=== PATIENT | female | born 1985 | race Two or more races ===

== ENCOUNTER 2023-12-18 20:36 | Inpatient (IN) | payer MEDICAID ==
[~2023-12-18] VITALS: Ht 175.3 cm; Wt 30.5 kg
[~2023-12-18 20:36] MED LIST: ESCI-8 PO; HYDR-3686 PO; HYDR28CR14 TP; Lorazepam PO; NO HOME MEDS; OXCA150T14 PO; PROP10TA10 PO; RISP-31 PO; TEMA15CA5 PO; TRAZ-251 PO; VENL75CA61 PO
[2023-12-18 21:15] LABS: WHITE BLOOD COUNT 23.6 X10'3 (4.5-11.0)
[2023-12-18 21:16] LABS: BASOPHILS % (AUTO) 0.2 % (0-1); EOSINOPHILS % (AUTO) 0.1 % (0-6); LYMPHOCYTES # (AUTO) 1.9 X10'3 (1.1-4.8); LYMPHOCYTES % (AUTO) 8.1 % (21-51); MONOCYTES # (AUTO) 1.3 X10'3 (0-0.9); MONOCYTES % (AUTO) 5.3 % (2-12); NEUTROPHILS # (AUTO) 20.4 X10'3 (1.8-7.7); NEUTROPHILS % (AUTO) 86.3 % (42-75); PLATELET COUNT 143 X10'3 (140-440)
[2023-12-18 21:23] LABS: BILIRUBIN,URINE MODERATE (Neg); CLARITY,URINE CLOUDY (Clear); COLOR,URINE AMBER (Yellow); GLUCOSE, URINE 100 mg/dl (Neg); KETONES,URINE NEGATIVE (Neg); LEUKOCYTE ESTERASE ,URINE NEGATIVE (Neg); OCCULT BLOOD,URINE NEGATIVE (Neg); PH,URINE 5.5 (4.8-8.0); PROTEIN,URINE 30 mg/dl (Neg)
[2023-12-18] MEDS: normal saline 1000ML IV soln IVB ONE ×2 (21:24→23:31)
[2023-12-18] MEDS: acetaminophen 650mg rectal suppository RC ONE (21:24)
[2023-12-18 21:29] LABS: UA COLLECTION TYPE STRAIGHT CATH
[2023-12-18 21:30] LABS: NITRITES, URINE NEGATIVE (Neg)
[2023-12-18 21:32] LABS: BACTERIA,URINE 3+ /HPF (Neg); MUCUS STRANDS MANY /LPF (Neg); RBC,URINE NONE SEEN /HPF (0-2); SQUAMOUS EPITHELIAL CELL,UR FEW /LPF (FEW); WBC,URINE 0-4 /HPF (0-4)
[2023-12-18 21:37] LABS: HEMATOCRIT 55.9 % (35.0-45.0); HEMOGLOBIN 17.8 g/dl (12.0-16.0); MEAN CORPUSCULAR HGB CONC 31.8 g/dL (33.0-36.5); MEAN CORPUSCULAR VOLUME 81.8 FL (78-98); RED BLOOD COUNT 6.83 X10'6 (4.20-5.60); RED CELL DISTRIBUTION WIDTH 13.8 % (11.5-14.5)
[2023-12-18 21:56] LABS: ALBUMIN 3.8 G/DL (3.4-5.0); ANION GAP 13 (8-16); BLOOD UREA NITROGEN 27 MG/DL (7-18); BUN/CREATININE RATIO 33.3 (10.0-20.0); CHLORIDE 119 MMOL/L (99-107); CREATININE 0.81 MG/DL (0.40-0.90); GLUCOSE 130 MG/DL (70-104); POTASSIUM 3.1 MMOL/L (3.5-5.1); TOTAL CARBON DIOXIDE 28.5 MMOL/L (24-32); eCRCL 60 ML/MIN; eGFR 78 ML/MIN
[2023-12-18 22:01] LABS: SODIUM 160 MMOL/L (135-145)
[2023-12-18] MEDS: piperacillin/tazo 3.375gm/50ml 50 ML IV ONE (22:16)
[2023-12-18] MEDS ORDERED: magnesium 2GM in 50ml NS 50 ML IV PRN (22:35)
[2023-12-18] MEDS ORDERED: magnesium 4gm in 100ml NS 100 ML IV PRN (22:35)
[2023-12-18] MEDS ORDERED: potassium Cl 20 mEq SR tablet PO PRN ×2 (22:35)
[2023-12-18] MEDS ORDERED: acetaminophen 325mg tablet PO PRN (22:35)
[2023-12-18] MEDS ORDERED: ondansetron/PF 4mg/2ml inj IV PRN (22:35)
[2023-12-18] MEDS ORDERED: magnesium Cl slow-release 64mg tablet PO PRN (22:35)
[2023-12-19] VITALS (7 sets, daily range): BP systolic 104–128; BP diastolic 65–83; PULSE 62–89; RESP 13–17; TEMP 97–98.4; O2SAT 93–100
[2023-12-19] MEDS: dextrose 5%-water 1,000 ML IV SCH (01:53)
[2023-12-19] MEDS: K and/or MAG REPLACEMENT MC SCH (08:00)
[2023-12-19 09:27] LABS: BASOPHILS # (AUTO) 0.1 X10'3 (0-0.2); BASOPHILS % (AUTO) 0.3 % (0-1); EOSINOPHILS % (AUTO) 0.1 % (0-6); LYMPHOCYTES % (AUTO) 9.8 % (21-51); MEAN PLATELET VOLUME 11.1 FL (7.4-10.4); MONOCYTES # (AUTO) 1.2 X10'3 (0-0.9); MONOCYTES % (AUTO) 6.2 % (2-12); NEUTROPHILS # (AUTO) 16.7 X10'3 (1.8-7.7); NEUTROPHILS % (AUTO) 83.6 % (42-75); PLATELET COUNT 119 X10'3 (140-440); RED CELL DISTRIBUTION WIDTH 14.4 % (11.5-14.5)
[2023-12-19 09:38] LABS: ANION GAP 6 (8-16); BILIRUBIN,TOTAL 0.9 MG/DL (0.1-1.0); BLOOD UREA NITROGEN 19 MG/DL (7-18); BUN/CREATININE RATIO 32.8 (10.0-20.0); CALCIUM 8.5 MG/DL (8.5-10.1); CHLORIDE 122 MMOL/L (99-107); CREATININE 0.58 MG/DL (0.40-0.90); GLUCOSE 134 MG/DL (70-104); TOTAL CARBON DIOXIDE 28.8 MMOL/L (24-32); TOTAL PROTEIN 6.6 G/DL (6.4-8.2); eCRCL 83 ML/MIN; eGFR > 90 ML/MIN
[2023-12-19 09:39] LABS: ALANINE AMINOTRANSFERASE 9 U/L (12-78); ALBUMIN 2.8 G/DL (3.4-5.0); ALBUMIN/GLOBULIN RATIO 0.7 (1.1-1.5); ALKALINE PHOSPHATASE 80 IU/L (46-116); ASPARTATE AMINO TRANSFERASE 1 U/L (10-37)
[2023-12-19 09:44] LABS: POTASSIUM 2.8 MMOL/L (3.5-5.1); SODIUM 157 MMOL/L (135-145)
[2023-12-19 09:47] LABS: HEMATOCRIT 42.5 % (35.0-45.0); HEMOGLOBIN 13.4 g/dl (12.0-16.0); MEAN CORPUSCULAR HEMOGLOBIN 26.5 PG (27.0-31.0); MEAN CORPUSCULAR HGB CONC 31.5 g/dL (33.0-36.5); MEAN CORPUSCULAR VOLUME 84.1 FL (78-98); RED BLOOD COUNT 5.05 X10'6 (4.20-5.60)
[2023-12-19 10:20] LABS: LARGE PLATELETS MODERATE; PLATELET ESTIMATE DECREASED
[2023-12-19] MEDS: potassium Cl 40MEQ/1/2NS 520ml 520 ML IV PRN (12:21)
[2023-12-19] MEDS: piperacillin/tazo 3.375gm/50ml 50 ML IV SCH (17:53)
[2023-12-20 02:00] VITALS: BP 122/80; PULSE 74; RESP 13; TEMP 97.6; O2SAT 100
[2023-12-20 06:44] LABS: BASOPHILS % (AUTO) 0.2 % (0-1); EOSINOPHILS # (AUTO) 0.2 X10'3 (0-0.9); EOSINOPHILS % (AUTO) 1.1 % (0-6); HEMATOCRIT 38.6 % (35.0-45.0); HEMOGLOBIN 12.1 g/dl (12.0-16.0); LYMPHOCYTES % (AUTO) 14.4 % (21-51); MEAN CORPUSCULAR HEMOGLOBIN 25.9 PG (27.0-31.0); MEAN CORPUSCULAR HGB CONC 31.4 g/dL (33.0-36.5); MEAN CORPUSCULAR VOLUME 82.6 FL (78-98); MEAN PLATELET VOLUME 10.8 FL (7.4-10.4); MONOCYTES # (AUTO) 1.1 X10'3 (0-0.9); MONOCYTES % (AUTO) 7.9 % (2-12); NEUTROPHILS # (AUTO) 10.4 X10'3 (1.8-7.7); NEUTROPHILS % (AUTO) 76.4 % (42-75); PLATELET COUNT 114 X10'3 (140-440); RED BLOOD COUNT 4.67 X10'6 (4.20-5.60); RED CELL DISTRIBUTION WIDTH 14.4 % (11.5-14.5); WHITE BLOOD COUNT 13.7 X10'3 (4.5-11.0)
[2023-12-20 07:00] VITALS: BP 113/69; PULSE 64; RESP 19; TEMP 97.5; O2SAT 96
[2023-12-20 07:28] LABS: ALBUMIN 2.6 G/DL (3.4-5.0); ANION GAP 9 (8-16); BLOOD UREA NITROGEN 10 MG/DL (7-18); BUN/CREATININE RATIO 20.4 (10.0-20.0); CALCIUM 8.3 MG/DL (8.5-10.1); CHLORIDE 114 MMOL/L (99-107); CREATININE 0.49 MG/DL (0.40-0.90); GLUCOSE 122 MG/DL (70-104); SODIUM 148 MMOL/L (135-145); TOTAL CARBON DIOXIDE 24.7 MMOL/L (24-32); eCRCL 99 ML/MIN; eGFR > 90 ML/MIN
[2023-12-20 07:42] LABS: POTASSIUM 2.9 MMOL/L (3.5-5.1)
[2023-12-20 08:00] VITALS: RESP 17; O2SAT 98
[2023-12-20 13:26] LABS: PREALBUMIN 15.4 MG/DL (19-36)
[2023-12-20 18:00] VITALS: BP 103/65; PULSE 68; RESP 15; TEMP 97.3; O2SAT 100
[2023-12-20 22:00] VITALS: BP 116/84; PULSE 61; RESP 16; TEMP 97.5; O2SAT 100
[2023-12-21] VITALS (7 sets, daily range): BP systolic 110–135; BP diastolic 65–98; PULSE 61–83; RESP 16–22; TEMP 97.6–100.2; O2SAT 95–100
[2023-12-21 08:05] LABS: BASOPHILS % (AUTO) 0.2 % (0-1); EOSINOPHILS # (AUTO) 0.2 X10'3 (0-0.9); EOSINOPHILS % (AUTO) 1.6 % (0-6); HEMOGLOBIN 12.4 g/dl (12.0-16.0); LYMPHOCYTES # (AUTO) 1.7 X10'3 (1.1-4.8); LYMPHOCYTES % (AUTO) 17.6 % (21-51); MEAN CORPUSCULAR HEMOGLOBIN 25.9 PG (27.0-31.0); MEAN CORPUSCULAR HGB CONC 31.8 g/dL (33.0-36.5); MEAN CORPUSCULAR VOLUME 81.4 FL (78-98); MONOCYTES # (AUTO) 0.7 X10'3 (0-0.9); NEUTROPHILS % (AUTO) 73.6 % (42-75); PLATELET COUNT 138 X10'3 (140-440); RED CELL DISTRIBUTION WIDTH 14.1 % (11.5-14.5); WHITE BLOOD COUNT 9.6 X10'3 (4.5-11.0)
[2023-12-21 08:26] LABS: ALBUMIN 2.6 G/DL (3.4-5.0); ANION GAP 6 (8-16); BLOOD UREA NITROGEN 1 MG/DL (7-18); BUN/CREATININE RATIO 2.6 (10.0-20.0); CALCIUM 8.5 MG/DL (8.5-10.1); CHLORIDE 112 MMOL/L (99-107); CREATININE 0.38 MG/DL (0.40-0.90); GLUCOSE 136 MG/DL (70-104); POTASSIUM 3.8 MMOL/L (3.5-5.1); SODIUM 146 MMOL/L (135-145); TOTAL CARBON DIOXIDE 27.6 MMOL/L (24-32); eCRCL 127 ML/MIN; eGFR > 90 ML/MIN
[2023-12-22] VITALS (7 sets, daily range): BP systolic 101–133; BP diastolic 61–81; PULSE 80–102; RESP 13–19; TEMP 96.6–99.3; O2SAT 96–100
[2023-12-22 07:42] LABS: BASOPHILS # (AUTO) 0.1 X10'3 (0-0.2); BASOPHILS % (AUTO) 0.5 % (0-1); EOSINOPHILS # (AUTO) 0.1 X10'3 (0-0.9); EOSINOPHILS % (AUTO) 0.6 % (0-6); HEMATOCRIT 43.2 % (35.0-45.0); HEMOGLOBIN 13.9 g/dl (12.0-16.0); LYMPHOCYTES % (AUTO) 17.7 % (21-51); MEAN CORPUSCULAR HEMOGLOBIN 25.8 PG (27.0-31.0); MEAN CORPUSCULAR HGB CONC 32.1 g/dL (33.0-36.5); MEAN CORPUSCULAR VOLUME 80.3 FL (78-98); MEAN PLATELET VOLUME 10.5 FL (7.4-10.4); MONOCYTES # (AUTO) 0.8 X10'3 (0-0.9); MONOCYTES % (AUTO) 7.5 % (2-12); NEUTROPHILS # (AUTO) 8.3 X10'3 (1.8-7.7); NEUTROPHILS % (AUTO) 73.7 % (42-75); PLATELET COUNT 158 X10'3 (140-440); RED BLOOD COUNT 5.37 X10'6 (4.20-5.60); WHITE BLOOD COUNT 11.2 X10'3 (4.5-11.0)
[2023-12-22 08:02] LABS: ALBUMIN 2.9 G/DL (3.4-5.0); ANION GAP 7 (8-16); BLOOD UREA NITROGEN 1 MG/DL (7-18); BUN/CREATININE RATIO 2.1 (10.0-20.0); CALCIUM 8.6 MG/DL (8.5-10.1); CHLORIDE 105 MMOL/L (99-107); CREATININE 0.47 MG/DL (0.40-0.90); GLUCOSE 136 MG/DL (70-104); MAGNESIUM 1.9 MG/DL (1.5-2.4); SODIUM 141 MMOL/L (135-145); eCRCL 103 ML/MIN; eGFR > 90 ML/MIN
[2023-12-22 08:14] LABS: POTASSIUM 2.9 MMOL/L (3.5-5.1)
[2023-12-22] MEDS ORDERED: LORazepam 2 mg/ml vial IV ONE (12:45)
[2023-12-22] MEDS: diazepam inj 5 MG/ML inj. IV ONE (15:57)
[2023-12-22] MEDS ORDERED: potassium Cl 20 mEq SR tablet PO PRN ×2 (16:25)
[2023-12-22] MEDS ORDERED: magnesium 4gm in 100ml NS 100 ML IV PRN (16:25)
[2023-12-22] MEDS ORDERED: magnesium Cl slow-release 64mg tablet PO PRN (16:25)
[2023-12-22] MEDS ORDERED: magnesium 2GM in 50ml NS 50 ML IV PRN (16:25)
[2023-12-22] MEDS: potassium Cl 40MEQ/1/2NS 520ml 520 ML IV PRN (19:04)
[2023-12-22] MEDS: K and/or MAG REPLACEMENT MC SCH (19:14)
[2023-12-23] VITALS (8 sets, daily range): BP systolic 103–128; BP diastolic 56–81; PULSE 71–93; RESP 12–20; TEMP 97.5–98.7; O2SAT 96–98
[2023-12-23 07:40] LABS: BASOPHILS % (AUTO) 0.2 % (0-1); EOSINOPHILS # (AUTO) 0.2 X10'3 (0-0.9); EOSINOPHILS % (AUTO) 1.7 % (0-6); HEMATOCRIT 44.6 % (35.0-45.0); HEMOGLOBIN 14.4 g/dl (12.0-16.0); LYMPHOCYTES # (AUTO) 1.9 X10'3 (1.1-4.8); LYMPHOCYTES % (AUTO) 20.6 % (21-51); MEAN CORPUSCULAR HEMOGLOBIN 26.2 PG (27.0-31.0); MEAN CORPUSCULAR HGB CONC 32.2 g/dL (33.0-36.5); MEAN CORPUSCULAR VOLUME 81.3 FL (78-98); MEAN PLATELET VOLUME 9.9 FL (7.4-10.4); MONOCYTES # (AUTO) 0.8 X10'3 (0-0.9); MONOCYTES % (AUTO) 8.7 % (2-12); NEUTROPHILS # (AUTO) 6.5 X10'3 (1.8-7.7); NEUTROPHILS % (AUTO) 68.8 % (42-75); PLATELET COUNT 149 X10'3 (140-440); RED BLOOD COUNT 5.49 X10'6 (4.20-5.60); RED CELL DISTRIBUTION WIDTH 13.9 % (11.5-14.5); WHITE BLOOD COUNT 9.4 X10'3 (4.5-11.0)
[2023-12-23 07:48] LABS: ALBUMIN 2.7 G/DL (3.4-5.0); ANION GAP 10 (8-16); BLOOD UREA NITROGEN 1 MG/DL (7-18); BUN/CREATININE RATIO 2.6 (10.0-20.0); CALCIUM 9.1 MG/DL (8.5-10.1); CHLORIDE 106 MMOL/L (99-107); CREATININE 0.39 MG/DL (0.40-0.90); GLUCOSE 112 MG/DL (70-104); POTASSIUM 3.9 MMOL/L (3.5-5.1); PREALBUMIN 18.6 MG/DL (19-36); SODIUM 140 MMOL/L (135-145); TOTAL CARBON DIOXIDE 24.2 MMOL/L (24-32); eCRCL 127 ML/MIN; eGFR > 90 ML/MIN
[2023-12-24] VITALS (7 sets, daily range): BP systolic 102–120; BP diastolic 59–79; PULSE 83–111; RESP 15–25; TEMP 97–98.9; O2SAT 97–99
[2023-12-24 15:27] LABS: BASOPHILS % (AUTO) 0.2 % (0-1); EOSINOPHILS # (AUTO) 0.2 X10'3 (0-0.9); EOSINOPHILS % (AUTO) 1.6 % (0-6); HEMATOCRIT 43.6 % (35.0-45.0); LYMPHOCYTES # (AUTO) 2.7 X10'3 (1.1-4.8); LYMPHOCYTES % (AUTO) 22.1 % (21-51); MEAN CORPUSCULAR HEMOGLOBIN 25.8 PG (27.0-31.0); MEAN CORPUSCULAR VOLUME 80.7 FL (78-98); MEAN PLATELET VOLUME 9.5 FL (7.4-10.4); MONOCYTES # (AUTO) 1.2 X10'3 (0-0.9); MONOCYTES % (AUTO) 9.7 % (2-12); NEUTROPHILS # (AUTO) 8.3 X10'3 (1.8-7.7); NEUTROPHILS % (AUTO) 66.4 % (42-75); PLATELET COUNT 232 X10'3 (140-440); WHITE BLOOD COUNT 12.4 X10'3 (4.5-11.0)
[2023-12-24 15:42] LABS: ALANINE AMINOTRANSFERASE 8 U/L (12-78); ALBUMIN 2.9 G/DL (3.4-5.0); ALBUMIN/GLOBULIN RATIO 0.6 (1.1-1.5); ALKALINE PHOSPHATASE 105 IU/L (46-116); ANION GAP 11 (8-16); ASPARTATE AMINO TRANSFERASE 19 U/L (10-37); BILIRUBIN,TOTAL 0.3 MG/DL (0.1-1.0); BLOOD UREA NITROGEN 4 MG/DL (7-18); BUN/CREATININE RATIO 6.8 (10.0-20.0); CALCIUM 9.1 MG/DL (8.5-10.1); CHLORIDE 101 MMOL/L (99-107); CREATININE 0.59 MG/DL (0.40-0.90); GLUCOSE 107 MG/DL (70-104); POTASSIUM 3.9 MMOL/L (3.5-5.1); SODIUM 139 MMOL/L (135-145); TOTAL CARBON DIOXIDE 26.6 MMOL/L (24-32); TOTAL PROTEIN 7.6 G/DL (6.4-8.2); eCRCL 86 ML/MIN; eGFR > 90 ML/MIN
[2023-12-25] VITALS (7 sets, daily range): BP systolic 103–115; BP diastolic 50–68; PULSE 71–111; RESP 13–18; TEMP 97.3–98.8; O2SAT 97–98
[2023-12-25 09:46] LABS: BASOPHILS % (AUTO) 0.2 % (0-1); EOSINOPHILS # (AUTO) 0.2 X10'3 (0-0.9); EOSINOPHILS % (AUTO) 1.7 % (0-6); HEMATOCRIT 42.5 % (35.0-45.0); HEMOGLOBIN 13.7 g/dl (12.0-16.0); LYMPHOCYTES # (AUTO) 2.2 X10'3 (1.1-4.8); MEAN CORPUSCULAR HEMOGLOBIN 25.9 PG (27.0-31.0); MEAN CORPUSCULAR HGB CONC 32.1 g/dL (33.0-36.5); MEAN CORPUSCULAR VOLUME 80.7 FL (78-98); MEAN PLATELET VOLUME 9.2 FL (7.4-10.4); MONOCYTES # (AUTO) 1.2 X10'3 (0-0.9); MONOCYTES % (AUTO) 10.1 % (2-12); NEUTROPHILS # (AUTO) 8.1 X10'3 (1.8-7.7); PLATELET COUNT 242 X10'3 (140-440); RED BLOOD COUNT 5.27 X10'6 (4.20-5.60); RED CELL DISTRIBUTION WIDTH 13.9 % (11.5-14.5); WHITE BLOOD COUNT 11.7 X10'3 (4.5-11.0)
[2023-12-25 10:08] LABS: ALANINE AMINOTRANSFERASE 11 U/L (12-78); ALBUMIN 2.9 G/DL (3.4-5.0); ALBUMIN/GLOBULIN RATIO 0.6 (1.1-1.5); ALKALINE PHOSPHATASE 104 IU/L (46-116); ANION GAP 6 (8-16); ASPARTATE AMINO TRANSFERASE 17 U/L (10-37); BILIRUBIN,TOTAL 0.3 MG/DL (0.1-1.0); BLOOD UREA NITROGEN 5 MG/DL (7-18); BUN/CREATININE RATIO 9.3 (10.0-20.0); CALCIUM 9.3 MG/DL (8.5-10.1); CHLORIDE 102 MMOL/L (99-107); CREATININE 0.54 MG/DL (0.40-0.90); GLUCOSE 115 MG/DL (70-104); POTASSIUM 4.3 MMOL/L (3.5-5.1); SODIUM 140 MMOL/L (135-145); TOTAL PROTEIN 7.6 G/DL (6.4-8.2); eCRCL 98 ML/MIN; eGFR > 90 ML/MIN
[2023-12-26] VITALS (11 sets, daily range): BP systolic 92–117; BP diastolic 57–70; PULSE 61–100; RESP 14–18; TEMP 98.4–99.6; O2SAT 94–99
[2023-12-26 09:51] LABS: ALANINE AMINOTRANSFERASE 10 U/L (12-78); ALBUMIN 2.8 G/DL (3.4-5.0); ALBUMIN/GLOBULIN RATIO 0.6 (1.1-1.5); ALKALINE PHOSPHATASE 95 IU/L (46-116); ANION GAP 5 (8-16); ASPARTATE AMINO TRANSFERASE 19 U/L (10-37); BILIRUBIN,TOTAL 0.3 MG/DL (0.1-1.0); BLOOD UREA NITROGEN 5 MG/DL (7-18); BUN/CREATININE RATIO 10.9 (10.0-20.0); CALCIUM 9.2 MG/DL (8.5-10.1); CHLORIDE 101 MMOL/L (99-107); CREATININE 0.46 MG/DL (0.40-0.90); GLUCOSE 119 MG/DL (70-104); POTASSIUM 4.4 MMOL/L (3.5-5.1); SODIUM 140 MMOL/L (135-145); TOTAL CARBON DIOXIDE 33.8 MMOL/L (24-32); TOTAL PROTEIN 7.5 G/DL (6.4-8.2); eCRCL 112 ML/MIN; eGFR > 90 ML/MIN
[2023-12-26 09:57] LABS: BASOPHILS % (AUTO) 0.2 % (0-1); EOSINOPHILS # (AUTO) 0.1 X10'3 (0-0.9); EOSINOPHILS % (AUTO) 1.1 % (0-6); HEMATOCRIT 41.9 % (35.0-45.0); HEMOGLOBIN 13.4 g/dl (12.0-16.0); LYMPHOCYTES % (AUTO) 18.3 % (21-51); MEAN CORPUSCULAR HEMOGLOBIN 26.1 PG (27.0-31.0); MEAN CORPUSCULAR HGB CONC 31.9 g/dL (33.0-36.5); MEAN CORPUSCULAR VOLUME 81.6 FL (78-98); MEAN PLATELET VOLUME 9.6 FL (7.4-10.4); MONOCYTES # (AUTO) 1.1 X10'3 (0-0.9); MONOCYTES % (AUTO) 9.8 % (2-12); NEUTROPHILS # (AUTO) 7.7 X10'3 (1.8-7.7); NEUTROPHILS % (AUTO) 70.6 % (42-75); PLATELET COUNT 264 X10'3 (140-440); RED BLOOD COUNT 5.14 X10'6 (4.20-5.60); RED CELL DISTRIBUTION WIDTH 13.8 % (11.5-14.5); WHITE BLOOD COUNT 10.9 X10'3 (4.5-11.0)
[2023-12-27] VITALS (9 sets, daily range): BP systolic 91–108; BP diastolic 58–72; PULSE 78–93; RESP 15–16; TEMP 97–99.3; O2SAT 97–99
[2023-12-27 07:03] LABS: PREALBUMIN 25.4 MG/DL (19-36)
[2023-12-27 09:04] LABS: BASOPHILS % (AUTO) 0.3 % (0-1); EOSINOPHILS # (AUTO) 0.2 X10'3 (0-0.9); EOSINOPHILS % (AUTO) 1.3 % (0-6); HEMATOCRIT 39.4 % (35.0-45.0); HEMOGLOBIN 12.6 g/dl (12.0-16.0); LYMPHOCYTES # (AUTO) 1.9 X10'3 (1.1-4.8); LYMPHOCYTES % (AUTO) 15.2 % (21-51); MEAN CORPUSCULAR HEMOGLOBIN 25.7 PG (27.0-31.0); MEAN CORPUSCULAR VOLUME 80.3 FL (78-98); MEAN PLATELET VOLUME 9.4 FL (7.4-10.4); MONOCYTES # (AUTO) 1.1 X10'3 (0-0.9); MONOCYTES % (AUTO) 8.3 % (2-12); NEUTROPHILS # (AUTO) 9.6 X10'3 (1.8-7.7); NEUTROPHILS % (AUTO) 74.9 % (42-75); PLATELET COUNT 254 X10'3 (140-440); RED CELL DISTRIBUTION WIDTH 13.7 % (11.5-14.5); WHITE BLOOD COUNT 12.8 X10'3 (4.5-11.0)
[2023-12-27 09:22] LABS: ALANINE AMINOTRANSFERASE 9 U/L (12-78); ALBUMIN 2.7 G/DL (3.4-5.0); ALBUMIN/GLOBULIN RATIO 0.6 (1.1-1.5); ALKALINE PHOSPHATASE 89 IU/L (46-116); ANION GAP 10 (8-16); ASPARTATE AMINO TRANSFERASE 24 U/L (10-37); BILIRUBIN,TOTAL 0.2 MG/DL (0.1-1.0); BLOOD UREA NITROGEN 7 MG/DL (7-18); BUN/CREATININE RATIO 15.6 (10.0-20.0); CALCIUM 8.7 MG/DL (8.5-10.1); CHLORIDE 101 MMOL/L (99-107); CREATININE 0.45 MG/DL (0.40-0.90); GLUCOSE 124 MG/DL (70-104); POTASSIUM 3.7 MMOL/L (3.5-5.1); SODIUM 140 MMOL/L (135-145); TOTAL CARBON DIOXIDE 29.4 MMOL/L (24-32); eCRCL 117 ML/MIN; eGFR > 90 ML/MIN
[2023-12-27] MEDS ORDERED: UNABLE TO OBTAIN (22:41)
[2023-12-28] VITALS (14 sets, daily range): BP systolic 94–135; BP diastolic 51–88; PULSE 65–93; RESP 12–20; TEMP 97.3–99.2; O2SAT 94–98
[2023-12-28] MEDS ORDERED: diphenhydrAMINE 50 mg/ml inj ONE (15:34)
[2023-12-28] MEDS ORDERED: fentaNYL/PF 50MCG/1 ML 2ML syringe ONE (15:34)
[2023-12-28] MEDS ORDERED: MIDAZolam 1 MG/ML 5ML VIAL ONE (15:34)
[2023-12-28] MEDS ORDERED: LIDOcaine 2% Viscous 15ml cup ONE (15:34)
[2023-12-28] MEDS: CefTRIAXone 2gm/D5W 50ml BAG 50 ML IV ONE (17:23)
[2023-12-29] VITALS (19 sets, daily range): BP systolic 90–146; BP diastolic 50–90; PULSE 60–107; RESP 11–19; TEMP 97.8–98.8; O2SAT 95–100
[2023-12-29 10:53] LABS: BASOPHILS # (AUTO) 0.1 X10'3 (0-0.2); BASOPHILS % (AUTO) 0.4 % (0-1); EOSINOPHILS # (AUTO) 0.2 X10'3 (0-0.9); EOSINOPHILS % (AUTO) 1.7 % (0-6); HEMATOCRIT 37.7 % (35.0-45.0); HEMOGLOBIN 11.9 g/dl (12.0-16.0); LYMPHOCYTES # (AUTO) 1.6 X10'3 (1.1-4.8); LYMPHOCYTES % (AUTO) 12.1 % (21-51); MEAN CORPUSCULAR HEMOGLOBIN 25.6 PG (27.0-31.0); MEAN CORPUSCULAR HGB CONC 31.6 g/dL (33.0-36.5); MEAN CORPUSCULAR VOLUME 80.9 FL (78-98); MEAN PLATELET VOLUME 8.3 FL (7.4-10.4); MONOCYTES # (AUTO) 0.8 X10'3 (0-0.9); MONOCYTES % (AUTO) 5.8 % (2-12); NEUTROPHILS # (AUTO) 10.4 X10'3 (1.8-7.7); PLATELET COUNT 266 X10'3 (140-440); RED BLOOD COUNT 4.66 X10'6 (4.20-5.60); RED CELL DISTRIBUTION WIDTH 13.8 % (11.5-14.5)
[2023-12-29 11:08] LABS: ALANINE AMINOTRANSFERASE 7 U/L (12-78); ALBUMIN 2.5 G/DL (3.4-5.0); ALBUMIN/GLOBULIN RATIO 0.6 (1.1-1.5); ALKALINE PHOSPHATASE 80 IU/L (46-116); ANION GAP 7 (8-16); ASPARTATE AMINO TRANSFERASE 16 U/L (10-37); BILIRUBIN,TOTAL 0.5 MG/DL (0.1-1.0); BLOOD UREA NITROGEN 4 MG/DL (7-18); BUN/CREATININE RATIO 11.4 (10.0-20.0); CALCIUM 8.6 MG/DL (8.5-10.1); CHLORIDE 103 MMOL/L (99-107); CREATININE 0.35 MG/DL (0.40-0.90); GLUCOSE 111 MG/DL (70-104); SODIUM 136 MMOL/L (135-145); TOTAL CARBON DIOXIDE 25.9 MMOL/L (24-32); TOTAL PROTEIN 6.8 G/DL (6.4-8.2); eCRCL 149 ML/MIN; eGFR > 90 ML/MIN
[2023-12-29 11:31] LABS: POTASSIUM 3.7 MMOL/L (3.5-5.1)
[2023-12-29] MEDS ORDERED: propofol 10mg/ml 20ml vial IV ONE (14:42)
[2023-12-29] MEDS ORDERED: fentaNYL/PF 50MCG/1 ML 2ML syringe ONE (14:49)
[2023-12-29] MEDS ORDERED: MIDAZolam 1 MG/ML 5ML VIAL ONE (14:49)
[2023-12-29] MEDS: CefTRIAXone 2gm/D5W 50ml BAG 50 ML IV SCH (21:18)
[2023-12-30] VITALS (8 sets, daily range): BP systolic 95–112; BP diastolic 53–84; PULSE 76–126; RESP 13–19; TEMP 97.3–99.6; O2SAT 95–99
[2023-12-30 09:30] LABS: BASOPHILS % (AUTO) 0.5 % (0-1); EOSINOPHILS # (AUTO) 0.1 X10'3 (0-0.9); EOSINOPHILS % (AUTO) 1.3 % (0-6); HEMATOCRIT 37.5 % (35.0-45.0); HEMOGLOBIN 12.3 g/dl (12.0-16.0); LYMPHOCYTES # (AUTO) 1.5 X10'3 (1.1-4.8); LYMPHOCYTES % (AUTO) 13.8 % (21-51); MEAN CORPUSCULAR HEMOGLOBIN 26.4 PG (27.0-31.0); MEAN CORPUSCULAR HGB CONC 32.9 g/dL (33.0-36.5); MEAN CORPUSCULAR VOLUME 80.1 FL (78-98); MEAN PLATELET VOLUME 8.2 FL (7.4-10.4); MONOCYTES # (AUTO) 0.8 X10'3 (0-0.9); MONOCYTES % (AUTO) 7.6 % (2-12); NEUTROPHILS # (AUTO) 8.3 X10'3 (1.8-7.7); NEUTROPHILS % (AUTO) 76.8 % (42-75); PLATELET COUNT 281 X10'3 (140-440); RED BLOOD COUNT 4.68 X10'6 (4.20-5.60); RED CELL DISTRIBUTION WIDTH 13.5 % (11.5-14.5); WHITE BLOOD COUNT 10.8 X10'3 (4.5-11.0)
[2023-12-30 09:39] LABS: ALANINE AMINOTRANSFERASE 10 U/L (12-78); ALBUMIN 2.7 G/DL (3.4-5.0); ALBUMIN/GLOBULIN RATIO 0.6 (1.1-1.5); ALKALINE PHOSPHATASE 85 IU/L (46-116); ANION GAP 6 (8-16); ASPARTATE AMINO TRANSFERASE 13 U/L (10-37); BILIRUBIN,TOTAL 0.4 MG/DL (0.1-1.0); BLOOD UREA NITROGEN 5 MG/DL (7-18); BUN/CREATININE RATIO 11.1 (10.0-20.0); CALCIUM 8.8 MG/DL (8.5-10.1); CHLORIDE 102 MMOL/L (99-107); CREATININE 0.45 MG/DL (0.40-0.90); GLUCOSE 126 MG/DL (70-104); POTASSIUM 3.5 MMOL/L (3.5-5.1); PREALBUMIN 22.4 MG/DL (19-36); SODIUM 139 MMOL/L (135-145); TOTAL PROTEIN 7.2 G/DL (6.4-8.2); eCRCL 116 ML/MIN; eGFR > 90 ML/MIN
[2023-12-31] VITALS (7 sets, daily range): BP systolic 93–138; BP diastolic 52–73; PULSE 92–112; RESP 14–20; TEMP 97–100.5; O2SAT 94–99
[2023-12-31] MEDS: acetaminophen 650mg rectal suppository RC PRN (02:08)
[2023-12-31] MEDS ORDERED: acetaminophen 325mg/10.15ml oral unit dose solution PEG PRN (14:57)
[2023-12-31] MEDS: metoclopramide 10mg/10 ml UD oral solution PO SCH (20:00)
[2023-12-31 20:35] LABS: URINE HCG NEGATIVE (NEG)
[2024-01-01] MEDS: lactulose 20gm/30ml cup PEG ONE (00:12)
[2024-01-01] MEDS: mineral oil 133ml enema RC PRN (00:12)
[2024-01-01 02:00] VITALS: BP 110/74; PULSE 97; RESP 19; TEMP 98; O2SAT 98
[2024-01-01 06:00] VITALS: BP 111/73; PULSE 94; RESP 17; TEMP 97.3; O2SAT 97
[2024-01-01 11:00] VITALS: BP 109/77; PULSE 91; RESP 13; TEMP 97.9; O2SAT 98
[2024-01-01 15:00] VITALS: BP 123/72; PULSE 96; RESP 13; TEMP 98.6; O2SAT 96
[2024-01-01 18:00] VITALS: BP 106/67; PULSE 76; RESP 15; TEMP 97.7; O2SAT 96
[2024-01-01 22:32] VITALS: BP 101/55; PULSE 85; RESP 18; TEMP 97.8; O2SAT 98
[2024-01-02] VITALS (8 sets, daily range): BP systolic 91–109; BP diastolic 56–87; PULSE 78–91; RESP 16–18; TEMP 97.4–99.8; O2SAT 96–100
[2024-01-03 02:00] VITALS: BP 112/55; PULSE 80; RESP 18; TEMP 98.7; O2SAT 98
[2024-01-03 06:39] LABS: PREALBUMIN 16.5 MG/DL (19-36)
[2024-01-03 06:59] VITALS: BP 124/65; PULSE 79; RESP 16; TEMP 97.8; O2SAT 97
[2024-01-03 07:51] LABS: BASOPHILS % (AUTO) 0.4 % (0-1); EOSINOPHILS # (AUTO) 0.2 X10'3 (0-0.9); HEMATOCRIT 36.3 % (35.0-45.0); HEMOGLOBIN 11.4 g/dl (12.0-16.0); LYMPHOCYTES # (AUTO) 1.8 X10'3 (1.1-4.8); LYMPHOCYTES % (AUTO) 21.8 % (21-51); MEAN CORPUSCULAR HEMOGLOBIN 25.4 PG (27.0-31.0); MEAN CORPUSCULAR HGB CONC 31.4 g/dL (33.0-36.5); MEAN CORPUSCULAR VOLUME 80.8 FL (78-98); MEAN PLATELET VOLUME 8.7 FL (7.4-10.4); MONOCYTES # (AUTO) 0.7 X10'3 (0-0.9); MONOCYTES % (AUTO) 8.2 % (2-12); NEUTROPHILS # (AUTO) 5.5 X10'3 (1.8-7.7); NEUTROPHILS % (AUTO) 66.6 % (42-75); PLATELET COUNT 326 X10'3 (140-440); RED BLOOD COUNT 4.49 X10'6 (4.20-5.60); RED CELL DISTRIBUTION WIDTH 13.9 % (11.5-14.5); WHITE BLOOD COUNT 8.2 X10'3 (4.5-11.0)
[2024-01-03 07:53] LABS: ALBUMIN 2.4 G/DL (3.4-5.0); ANION GAP 7 (8-16); BLOOD UREA NITROGEN 8 MG/DL (7-18); CHLORIDE 103 MMOL/L (99-107); GLUCOSE 86 MG/DL (70-104); POTASSIUM 3.8 MMOL/L (3.5-5.1); SODIUM 139 MMOL/L (135-145); eCRCL 90 ML/MIN; eGFR > 90 ML/MIN
[2024-01-03 08:00] VITALS: RESP 16; O2SAT 97
[2024-01-03] MEDS ORDERED: LEVO-65 PEG (10:26)
[2024-01-03 11:00] VITALS: BP 100/60; PULSE 99; RESP 16; TEMP 98.1; O2SAT 99
[2024-01-03] MEDS ORDERED: piperacillin/tazo 3.375gm/50ml 50 ML IV SCH (16:00)
== END 2024-01-03 16:27 | disposition home health service (06) | DRG 720 ==
LOC: EDBD 20:37 → ER 20:37 → ED HOLD 22:53 → PCU 3S 12-19 01:05
PROVIDERS: ADMIT Internal Medicine; ATTEND Internal Medicine
PROC: 0DH63UZ Insertion of Feeding Device into Stomach, Percutaneous Approach (ICD-10-PCS; principal; 2023-12-29 14:42)
DX: A41.9 Sepsis, unspecified organism (principal); J96.01 Acute respiratory failure with hypoxia; J69.0 Pneumonitis due to inhalation of food and vomit; R64 Cachexia; E87.0 Hyperosmolality and hypernatremia; R13.10 Dysphagia, unspecified; R62.7 Adult failure to thrive; K29.70 Gastritis, unspecified, without bleeding; E87.6 Hypokalemia; Z20.822 Contact with and (suspected) exposure to COVID-19; F03.C0 Unspecified dementia, severe, without behavioral disturbance, psychotic disturbance, mood disturbance, and anxiety; Z56.0 Unemployment, unspecified; Z79.899 Other long term (current) drug therapy; Z91.410 Personal history of adult physical and sexual abuse
CPT/HCPCS: 36415; 43246; 70551; 71045; 74018; 74176; 80048; 80053; 81001; 81025; 82948; 83605; 83735; 84134; 84145; 85008; 85025; 85651; 87040; 87077; 87081; 87088; 87186; 87811; 92508; 92616; 93005; 94760; 96365; 97161; 97530; 99152; 99285; A4618; A4620; A4624; A6209; A6213; A6222; A6223; A6250; A6258; A6407; A6449; G0378; J0696; J1200; J2250; J2543; J2704; J3010; J3360; J3480; J7030; J7040; J7042; J7070; J7120; J7121; J8597

== ENCOUNTER 2024-01-05 13:33 | Inpatient (IN) | payer MEDICAID ==
[2024-01-05] VITALS (13 sets, daily range): BP systolic 85–136; BP diastolic 52–77; PULSE 71–107; RESP 14–26; O2SAT 16–100
[~2024-01-05] VITALS: Ht 167.6 cm; Wt 47.5 kg
[~2024-01-05 13:33] MED LIST changes: +LEVO-65 PEG; +UNABLE TO OBTAIN; +rocuronium bromide 100mg/10ml (10mg/ml) injection IV ONE
[2024-01-05] MEDS: normal saline 1000ml 1,000 ML IV ONE ×2 (14:00→15:56)
[2024-01-05] MEDS: acetaminophen 1,000mg/100ml IV 100 ML IV SCH (14:03)
[2024-01-05] MEDS: normal saline 1000ml 1,000 ML ONE (14:03)
[2024-01-05 14:07] LABS: BILIRUBIN,URINE NEGATIVE (Neg); CLARITY,URINE SLIGHTLY CLOUDY (Clear); COLOR,URINE YELLOW (Yellow); GLUCOSE, URINE NEGATIVE (Neg); KETONES,URINE NEGATIVE (Neg); LEUKOCYTE ESTERASE ,URINE NEGATIVE (Neg); NITRITES, URINE NEGATIVE (Neg); OCCULT BLOOD,URINE NEGATIVE (Neg); PH,URINE 8.5 (4.8-8.0); PROTEIN,URINE 30 mg/dl (Neg)
[2024-01-05 14:09] LABS: BASOPHILS # (AUTO) 0.1 X10'3 (0-0.2); BASOPHILS % (AUTO) 0.4 % (0-1); EOSINOPHILS % (AUTO) 0 % (0-6); HEMATOCRIT 34.1 % (35.0-45.0); LYMPHOCYTES # (AUTO) 1.4 X10'3 (1.1-4.8); LYMPHOCYTES % (AUTO) 6.7 % (21-51); MEAN CORPUSCULAR HEMOGLOBIN 25.9 PG (27.0-31.0); MEAN CORPUSCULAR HGB CONC 32.4 g/dL (33.0-36.5); MEAN PLATELET VOLUME 8.3 FL (7.4-10.4); MONOCYTES # (AUTO) 0.8 X10'3 (0-0.9); MONOCYTES % (AUTO) 3.6 % (2-12); NEUTROPHILS # (AUTO) 19.1 X10'3 (1.8-7.7); NEUTROPHILS % (AUTO) 89.3 % (42-75); PLATELET COUNT 269 X10'3 (140-440); RED BLOOD COUNT 4.26 X10'6 (4.20-5.60); RED CELL DISTRIBUTION WIDTH 13.6 % (11.5-14.5); WHITE BLOOD COUNT 21.4 X10'3 (4.5-11.0)
[2024-01-05 14:21] LABS: UA COLLECTION TYPE FOLEY CATH
[2024-01-05 14:22] LABS: BACTERIA,URINE NONE SEEN /HPF (Neg); SQUAMOUS EPITHELIAL CELL,UR MODERATE /LPF (FEW); WBC,URINE 0-4 /HPF (0-4)
[2024-01-05 14:23] LABS: RBC,URINE 0-2 /HPF (0-2)
[2024-01-05] MEDS: etomidate 2mg/ml inj. IV ONE (14:27)
[2024-01-05] MEDS: rocuronium 10mg/ml inj IV ONE (14:28)
[2024-01-05 14:31] LABS: ALBUMIN 2.2 G/DL (3.4-5.0); ANION GAP 13 (8-16); BLOOD UREA NITROGEN 19 MG/DL (7-18); BUN/CREATININE RATIO 20.9 (10.0-20.0); CALCIUM 7.6 MG/DL (8.5-10.1); CHLORIDE 106 MMOL/L (99-107); CREATININE 0.91 MG/DL (0.40-0.90); GLUCOSE 155 MG/DL (70-104); SODIUM 140 MMOL/L (135-145); TOTAL CARBON DIOXIDE 21.3 MMOL/L (24-32); eCRCL 49 ML/MIN; eGFR 68 ML/MIN
[2024-01-05] MEDS: NORepinephrine 8mg/ 250ml NS 250 ML IV SCH (14:35)
[2024-01-05] MEDS: LORazepam 2 mg/ml vial IV ONE (15:28)
[2024-01-05 15:42] LABS: ABG BASE EXCESS -4.6 mmol/L (-2.0-2.0); ABG HCO3 17.7 mmol/L (22.0-26.0); ABG OXYGEN SATURATION 99.2 % (94-97); ABG PCO2 (T) 25.4 mmHg (32.0-45.0); ABG PO2 (T) 197.1 mmHg (75.0-100.0); ALLEN'S TEST POSITIVE; FCOHb 0.3 % (0.0-3.9); FHHb 0.8 % (0.0-5.0); FMetHb 0.4 % (0.0-1.5); FO2Hb 98.5 % (94-97); MODE VENT - AC; PATIENT TEMPERATURE 37.1; PEEP 5 cm H2O; RESPIRATORY RATE 16 b/min; TIDAL VOLUME 450 mL; TOTAL HEMOGLOBIN 12.1 G/dl (12.0-16.0)
[2024-01-05] MEDS: FENTANYL-0.9 % NACL/PF 100 ML IV SCH (15:48)
[2024-01-05] MEDS ORDERED: morphine 4 MG/ML inj SYRINge IV PRN ×2 (16:10→16:30)
[2024-01-05] MEDS ORDERED: magnesium hydroxide 30ml (MOM) UD suspension PO PRN ×2 (16:10→16:30)
[2024-01-05] MEDS ORDERED: acetaminophen 325mg tablet PO PRN ×4 (16:10→16:30)
[2024-01-05] MEDS ORDERED: ondansetron/PF 4mg/2ml inj IV PRN ×2 (16:10→16:30)
[2024-01-05] MEDS ORDERED: morphine 2 MG/ML inj. syringe IV PRN ×2 (16:10→16:30)
[2024-01-05] MEDS ORDERED: normal saline 1000ml 1,000 ML IV SCH (16:10)
[2024-01-05 16:49] LABS: THYROID STIMULATING HORMONE 0.42 ulU/ml (0.34-4.50)
[2024-01-05 17:09] LABS: GLUCOSE,CSF 97 MG/DL (40-75); TOTAL PROTEIN,CSF 51 MG/DL (15-45)
[2024-01-05 17:13] LABS: APPEARANCE,CSF CLEAR; CSF RBC 465 /CU MM (0); CSF SUPERNATANT COLOR COLORLESS; CSF VOLUME 15 ML; TUBE# COUNTED 1
[2024-01-05 17:15] LABS: CSF WBC CT 3 /CU MM (0-5)
[2024-01-05 17:16] LABS: APPEARANCE,CSF CLEAR; CSF RBC 36 /CU MM (0); CSF SUPERNATANT COLOR COLORLESS; CSF VOLUME 15 ML; CSF WBC CT 3 /CU MM (0-5); TUBE# COUNTED 4
[2024-01-05] MEDS: normal saline 1000ml 1,000 ML IV SCH (17:35)
[2024-01-05] MEDS ORDERED: potassium Cl 20 mEq SR tablet PO PRN ×2 (17:45)
[2024-01-05] MEDS ORDERED: magnesium 4gm in 100ml NS 100 ML IV PRN (17:45)
[2024-01-05] MEDS ORDERED: magnesium 2GM in 50ml NS 50 ML IV PRN (17:45)
[2024-01-05] MEDS: CefTRIAXone/D5W-Rocephin 1gm 50 ML IV ONE (18:50)
[2024-01-05] MEDS: potassium Cl 40MEQ/270ML bag 270 ML IV PRN (18:51)
[2024-01-05] MEDS: K and/or MAG REPLACEMENT MC SCH (18:52)
[2024-01-06] VITALS (50 sets, daily range): BP systolic 77–129; BP diastolic 43–87; PULSE 53–95; RESP 14–28; O2SAT 99–100
[2024-01-06] MEDS: piperacillin/tazo 4.5gm/100ml 100 ML IV SCH (00:10)
[2024-01-06 02:37] LABS: BASOPHILS % (AUTO) 0.2 % (0-1); EOSINOPHILS % (AUTO) 0 % (0-6); HEMATOCRIT 28.1 % (35.0-45.0); HEMOGLOBIN 9.3 g/dl (12.0-16.0); LYMPHOCYTES # (AUTO) 2.4 X10'3 (1.1-4.8); LYMPHOCYTES % (AUTO) 22.9 % (21-51); MEAN CORPUSCULAR HEMOGLOBIN 26.4 PG (27.0-31.0); MEAN CORPUSCULAR VOLUME 79.9 FL (78-98); MEAN PLATELET VOLUME 8.4 FL (7.4-10.4); MONOCYTES # (AUTO) 1.6 X10'3 (0-0.9); MONOCYTES % (AUTO) 15.6 % (2-12); NEUTROPHILS # (AUTO) 6.3 X10'3 (1.8-7.7); NEUTROPHILS % (AUTO) 61.3 % (42-75); PLATELET COUNT 152 X10'3 (140-440); RED BLOOD COUNT 3.52 X10'6 (4.20-5.60); RED CELL DISTRIBUTION WIDTH 13.7 % (11.5-14.5); WHITE BLOOD COUNT 10.3 X10'3 (4.5-11.0)
[2024-01-06 02:43] LABS: APTT 34 SECONDS (22-32); INR 1.2 INR
[2024-01-06 02:46] LABS: ALANINE AMINOTRANSFERASE 9 U/L (12-78); ALBUMIN 1.9 G/DL (3.4-5.0); ALBUMIN/GLOBULIN RATIO 0.5 (1.1-1.5); ALKALINE PHOSPHATASE 49 IU/L (46-116); ANION GAP 9 (8-16); ASPARTATE AMINO TRANSFERASE 39 U/L (10-37); BILIRUBIN,TOTAL 0.5 MG/DL (0.1-1.0); BLOOD UREA NITROGEN 10 MG/DL (7-18); BUN/CREATININE RATIO 30.3 (10.0-20.0); CHLORIDE 111 MMOL/L (99-107); CREATININE 0.33 MG/DL (0.40-0.90); GLUCOSE 87 MG/DL (70-104); MAGNESIUM 1.9 MG/DL (1.5-2.4); POTASSIUM 3.7 MMOL/L (3.5-5.1); SODIUM 142 MMOL/L (135-145); TOTAL CARBON DIOXIDE 21.9 MMOL/L (24-32); TOTAL PROTEIN 5.6 G/DL (6.4-8.2); eCRCL 146 ML/MIN; eGFR > 90 ML/MIN
[2024-01-06 03:25] LABS: ABG BASE EXCESS -2.5 mmol/L (-2.0-2.0); ABG HCO3 20.9 mmol/L (22.0-26.0); ABG OXYGEN SATURATION 98.5 % (94-97); ABG PCO2 (T) 31.9 mmHg (32.0-45.0); ABG PH (T) 7.437 (7.350-7.450); ALLEN'S TEST POSITIVE; FCOHb 0.3 % (0.0-3.9); FHHb 1.5 % (0.0-5.0); FMetHb 0.3 % (0.0-1.5); FO2Hb 97.9 % (94-97); MODE VENT - AC; PATIENT TEMPERATURE 37.5; PEEP 5 cm H2O; RESPIRATORY RATE 14 b/min; TIDAL VOLUME 350 mL; TOTAL HEMOGLOBIN 10.6 G/dl (12.0-16.0)
[2024-01-06 03:40] LABS: TOTAL CELLS COUNTED 100
[2024-01-06 03:41] LABS: MICROCYTOSIS 1+; PLATELET ESTIMATE NORMAL; POLYCHROMASIA FEW; TEAR DROP CELLS FEW
[2024-01-06] MEDS: NORepinephrine 8mg/ 250ml NS 250 ML IV SCH (06:58)
[2024-01-06] MEDS ORDERED: CefTRIAXone/D5W-Rocephin 1gm 50 ML IV SCH (08:00)
[2024-01-06] MEDS: enoxaparin 40mg/0.4ml syringe SUBCUT SCH (08:40)
[2024-01-06] MEDS: normal saline 1000ml 1,000 ML IV ONE (10:18)
[2024-01-06] MEDS ORDERED: Neutra Phos packet PEG PRN (11:05)
[2024-01-06] MEDS ORDERED: acetaminophen 325mg tablet PEG PRN (11:05)
[2024-01-06] MEDS ORDERED: sodium phosphate inj. 30 MMOL in dextrose 5%-water 250 ML IV PRN (11:05)
[2024-01-06] MEDS ORDERED: Neutra Phos packet PO PRN (11:05)
[2024-01-06] MEDS: sodium phosphate inj. 15 MMOL in dextrose 5%-water 250 ML IV PRN (12:58)
[2024-01-07] VITALS (28 sets, daily range): BP systolic 95–119; BP diastolic 54–73; PULSE 67–89; RESP 14–28; TEMP 97.4; O2SAT 98–100
[2024-01-07 03:06] LABS: BASOPHILS % (AUTO) 0.2 % (0-1); EOSINOPHILS % (AUTO) 0.1 % (0-6); HEMATOCRIT 30.1 % (35.0-45.0); HEMOGLOBIN 9.8 g/dl (12.0-16.0); LYMPHOCYTES # (AUTO) 1.3 X10'3 (1.1-4.8); LYMPHOCYTES % (AUTO) 8.1 % (21-51); MEAN CORPUSCULAR HGB CONC 32.7 g/dL (33.0-36.5); MEAN CORPUSCULAR VOLUME 79.6 FL (78-98); MEAN PLATELET VOLUME 8.7 FL (7.4-10.4); MONOCYTES # (AUTO) 0.8 X10'3 (0-0.9); NEUTROPHILS % (AUTO) 86.6 % (42-75); PLATELET COUNT 183 X10'3 (140-440); RED BLOOD COUNT 3.78 X10'6 (4.20-5.60); RED CELL DISTRIBUTION WIDTH 13.7 % (11.5-14.5); WHITE BLOOD COUNT 16.2 X10'3 (4.5-11.0)
[2024-01-07 03:14] LABS: ABG BASE EXCESS 3.4 mmol/L (-2.0-2.0); ABG HCO3 25.3 mmol/L (22.0-26.0); ABG PCO2 (T) 30.3 mmHg (32.0-45.0); ABG PH (T) 7.542 (7.350-7.450); ABG PO2 (T) 137.4 mmHg (75.0-100.0); ALLEN'S TEST POSITIVE; FCOHb 0.3 % (0.0-3.9); FMetHb 0.3 % (0.0-1.5); FO2Hb 98.4 % (94-97); PATIENT TEMPERATURE 37.6; PEEP 5 cm H2O; RESPIRATORY RATE 14 b/min; TIDAL VOLUME 350 mL
[2024-01-07 03:19] LABS: ALANINE AMINOTRANSFERASE 8 U/L (12-78); ALBUMIN 2.1 G/DL (3.4-5.0); ALBUMIN/GLOBULIN RATIO 0.5 (1.1-1.5); ALKALINE PHOSPHATASE 58 IU/L (46-116); ANION GAP 5 (8-16); ASPARTATE AMINO TRANSFERASE 26 U/L (10-37); BILIRUBIN,TOTAL 0.4 MG/DL (0.1-1.0); BLOOD UREA NITROGEN 3 MG/DL (7-18); BUN/CREATININE RATIO 9.7 (10.0-20.0); CHLORIDE 107 MMOL/L (99-107); CREATININE 0.31 MG/DL (0.40-0.90); GLUCOSE 99 MG/DL (70-104); MAGNESIUM 1.7 MG/DL (1.5-2.4); PHOSPHORUS 1.5 MG/DL (2.3-4.5); SODIUM 138 MMOL/L (135-145); TOTAL CARBON DIOXIDE 26.3 MMOL/L (24-32); TOTAL PROTEIN 6.2 G/DL (6.4-8.2); eCRCL 155 ML/MIN; eGFR > 90 ML/MIN
[2024-01-07 03:32] LABS: POTASSIUM 2.5 MMOL/L (3.5-5.1)
[2024-01-07] MEDS: POTASSIUM CHLORIDE 20 MEQ/15 ML oral solution PEG PRN (03:57)
[2024-01-07 18:57] LABS: PHOSPHORUS 2.5 MG/DL (2.3-4.5)
[2024-01-07 18:59] LABS: POTASSIUM 2.9 MMOL/L (3.5-5.1)
[2024-01-07] MEDS: potassium Cl 40MEQ/1/2NS 520ml 520 ML IV PRN (19:34)
[2024-01-07] MEDS: acetaminophen 325mg tablet PEG PRN (19:40)
[2024-01-07] MEDS: COMMUNICATION ORDER 1 EA MISC MC ONE (19:55)
[2024-01-07] MEDS: scopolamine 1MG/72H patch 1 PATCH PATCH.TD.3 TD ONE (19:56)
[2024-01-08 02:12] LABS: BASOPHILS % (AUTO) 0.1 % (0-1); EOSINOPHILS # (AUTO) 0.2 X10'3 (0-0.9); EOSINOPHILS % (AUTO) 1.6 % (0-6); HEMATOCRIT 32.1 % (35.0-45.0); HEMOGLOBIN 10.4 g/dl (12.0-16.0); LYMPHOCYTES % (AUTO) 13.5 % (21-51); MEAN CORPUSCULAR HEMOGLOBIN 25.6 PG (27.0-31.0); MEAN CORPUSCULAR HGB CONC 32.4 g/dL (33.0-36.5); MEAN PLATELET VOLUME 8.7 FL (7.4-10.4); MONOCYTES # (AUTO) 0.7 X10'3 (0-0.9); MONOCYTES % (AUTO) 4.9 % (2-12); NEUTROPHILS % (AUTO) 79.9 % (42-75); PLATELET COUNT 206 X10'3 (140-440); RED BLOOD COUNT 4.06 X10'6 (4.20-5.60); RED CELL DISTRIBUTION WIDTH 13.7 % (11.5-14.5); WHITE BLOOD COUNT 15.1 X10'3 (4.5-11.0)
[2024-01-08 02:42] LABS: APTT 31 SECONDS (22-32); INR 1.1 INR; PROTHROMBIN TIME 11.7 SECONDS (9.0-12.0)
[2024-01-08 02:45] LABS: ALANINE AMINOTRANSFERASE 9 U/L (12-78); ALBUMIN 2.2 G/DL (3.4-5.0); ALBUMIN/GLOBULIN RATIO 0.5 (1.1-1.5); ALKALINE PHOSPHATASE 70 IU/L (46-116); ANION GAP 5 (8-16); ASPARTATE AMINO TRANSFERASE 24 U/L (10-37); BILIRUBIN,TOTAL 0.4 MG/DL (0.1-1.0); BLOOD UREA NITROGEN 3 MG/DL (7-18); BUN/CREATININE RATIO 8.3 (10.0-20.0); CALCIUM 8.6 MG/DL (8.5-10.1); CHLORIDE 107 MMOL/L (99-107); CREATININE 0.36 MG/DL (0.40-0.90); GLUCOSE 109 MG/DL (70-104); MAGNESIUM 2.1 MG/DL (1.5-2.4); PHOSPHORUS 2.6 MG/DL (2.3-4.5); POTASSIUM 3.9 MMOL/L (3.5-5.1); SODIUM 140 MMOL/L (135-145); TOTAL CARBON DIOXIDE 27.9 MMOL/L (24-32); TOTAL PROTEIN 6.6 G/DL (6.4-8.2); eCRCL 141 ML/MIN; eGFR > 90 ML/MIN
[2024-01-08 06:00] VITALS: BP 103/54; PULSE 78; RESP 17; TEMP 98.7; O2SAT 95
[2024-01-08] MEDS: lansoprazole 15mg solutab PEG SCH (08:06)
[2024-01-08 11:00] VITALS: BP 111/51; PULSE 74; RESP 18; TEMP 98.4; O2SAT 99
[2024-01-08 15:00] VITALS: BP 107/65; PULSE 72; RESP 18; TEMP 98.1; O2SAT 97
[2024-01-08 18:00] VITALS: BP 123/47; PULSE 80; RESP 17; TEMP 98.8; O2SAT 94
[2024-01-08 22:00] VITALS: BP 106/59; PULSE 71; RESP 16; TEMP 98.4; O2SAT 99
[2024-01-09 02:00] VITALS: BP 99/61; PULSE 78; RESP 18; TEMP 98; O2SAT 100
[2024-01-09 07:18] LABS: BASOPHILS % (AUTO) 0.3 % (0-1); EOSINOPHILS # (AUTO) 0.4 X10'3 (0-0.9); EOSINOPHILS % (AUTO) 3.5 % (0-6); HEMATOCRIT 30.8 % (35.0-45.0); HEMOGLOBIN 9.9 g/dl (12.0-16.0); LYMPHOCYTES # (AUTO) 1.4 X10'3 (1.1-4.8); LYMPHOCYTES % (AUTO) 12.6 % (21-51); MEAN CORPUSCULAR HEMOGLOBIN 25.9 PG (27.0-31.0); MEAN CORPUSCULAR HGB CONC 32.2 g/dL (33.0-36.5); MEAN CORPUSCULAR VOLUME 80.5 FL (78-98); MEAN PLATELET VOLUME 8.9 FL (7.4-10.4); MONOCYTES # (AUTO) 0.6 X10'3 (0-0.9); MONOCYTES % (AUTO) 5.7 % (2-12); NEUTROPHILS # (AUTO) 8.6 X10'3 (1.8-7.7); NEUTROPHILS % (AUTO) 77.9 % (42-75); PLATELET COUNT 249 X10'3 (140-440); RED BLOOD COUNT 3.83 X10'6 (4.20-5.60)
[2024-01-09 07:30] VITALS: BP 135/74; PULSE 89; RESP 15; TEMP 97.1; O2SAT 96
[2024-01-09 07:32] LABS: APTT 28 SECONDS (22-32); PROTHROMBIN TIME 10.9 SECONDS (9.0-12.0)
[2024-01-09 07:38] LABS: ALANINE AMINOTRANSFERASE 7 U/L (12-78); ALBUMIN 2.3 G/DL (3.4-5.0); ALBUMIN/GLOBULIN RATIO 0.5 (1.1-1.5); ALKALINE PHOSPHATASE 74 IU/L (46-116); ANION GAP 8 (8-16); ASPARTATE AMINO TRANSFERASE 60 U/L (10-37); BILIRUBIN,TOTAL 0.2 MG/DL (0.1-1.0); BLOOD UREA NITROGEN 4 MG/DL (7-18); BUN/CREATININE RATIO 12.1 (10.0-20.0); CALCIUM 8.5 MG/DL (8.5-10.1); CHLORIDE 107 MMOL/L (99-107); CREATININE 0.33 MG/DL (0.40-0.90); GLUCOSE 107 MG/DL (70-104); MAGNESIUM 2.2 MG/DL (1.5-2.4); PHOSPHORUS 3.5 MG/DL (2.3-4.5); POTASSIUM 3.9 MMOL/L (3.5-5.1); SODIUM 141 MMOL/L (135-145); TOTAL PROTEIN 6.5 G/DL (6.4-8.2); eCRCL 149 ML/MIN; eGFR > 90 ML/MIN
[2024-01-09 08:00] VITALS: RESP 15; O2SAT 96
[2024-01-09 15:54] VITALS: BP 110/65; PULSE 81; RESP 17; TEMP 99.5; O2SAT 99
[2024-01-09 20:00] VITALS: RESP 16
[2024-01-09 22:00] VITALS: BP 107/58; PULSE 83; RESP 20; TEMP 99.1; O2SAT 96
[2024-01-10] VITALS (7 sets, daily range): BP systolic 101–105; BP diastolic 52–66; PULSE 76–81; RESP 15–19; TEMP 97.6–99.7; O2SAT 97–100
[2024-01-10 06:24] LABS: BASOPHILS % (AUTO) 0.3 % (0-1); EOSINOPHILS # (AUTO) 0.4 X10'3 (0-0.9); EOSINOPHILS % (AUTO) 2.9 % (0-6); HEMATOCRIT 31.8 % (35.0-45.0); HEMOGLOBIN 10.2 g/dl (12.0-16.0); LYMPHOCYTES # (AUTO) 1.4 X10'3 (1.1-4.8); LYMPHOCYTES % (AUTO) 11.8 % (21-51); MEAN CORPUSCULAR HEMOGLOBIN 25.8 PG (27.0-31.0); MEAN CORPUSCULAR VOLUME 80.7 FL (78-98); MEAN PLATELET VOLUME 8.7 FL (7.4-10.4); MONOCYTES # (AUTO) 0.6 X10'3 (0-0.9); MONOCYTES % (AUTO) 4.7 % (2-12); NEUTROPHILS # (AUTO) 9.9 X10'3 (1.8-7.7); NEUTROPHILS % (AUTO) 80.3 % (42-75); PLATELET COUNT 277 X10'3 (140-440); RED BLOOD COUNT 3.94 X10'6 (4.20-5.60); RED CELL DISTRIBUTION WIDTH 13.9 % (11.5-14.5); WHITE BLOOD COUNT 12.3 X10'3 (4.5-11.0)
[2024-01-10 06:27] LABS: APTT 26 SECONDS (22-32); PROTHROMBIN TIME 10.8 SECONDS (9.0-12.0)
[2024-01-10 06:37] LABS: ALANINE AMINOTRANSFERASE 7 U/L (12-78); ALBUMIN 2.3 G/DL (3.4-5.0); ALBUMIN/GLOBULIN RATIO 0.5 (1.1-1.5); ALKALINE PHOSPHATASE 81 IU/L (46-116); ANION GAP 6 (8-16); ASPARTATE AMINO TRANSFERASE 43 U/L (10-37); BILIRUBIN,TOTAL 0.2 MG/DL (0.1-1.0); BLOOD UREA NITROGEN 5 MG/DL (7-18); BUN/CREATININE RATIO 13.9 (10.0-20.0); CALCIUM 8.6 MG/DL (8.5-10.1); CHLORIDE 107 MMOL/L (99-107); CREATININE 0.36 MG/DL (0.40-0.90); GLUCOSE 119 MG/DL (70-104); MAGNESIUM 2.1 MG/DL (1.5-2.4); PHOSPHORUS 3.3 MG/DL (2.3-4.5); POTASSIUM 3.8 MMOL/L (3.5-5.1); PREALBUMIN 18.6 MG/DL (19-36); SODIUM 140 MMOL/L (135-145); TOTAL CARBON DIOXIDE 27.1 MMOL/L (24-32); TOTAL PROTEIN 6.7 G/DL (6.4-8.2); eCRCL 143 ML/MIN; eGFR > 90 ML/MIN
[2024-01-10] MEDS ORDERED: HYDR-3686 PO (22:58)
[2024-01-10] MEDS ORDERED: RISP1TAB69 PO (22:58)
[2024-01-10] MEDS ORDERED: LEVO-65 PO (22:58)
[2024-01-10] MEDS ORDERED: HYDR28CR14 TOP (22:58)
[2024-01-10] MEDS ORDERED: PROP10TA10 PO (22:58)
[2024-01-10] MEDS ORDERED: OXCA150T14 PO (22:58)
[2024-01-10] MEDS ORDERED: TRAZ-251 PO (22:58)
[2024-01-10] MEDS ORDERED: VENL150C58 PO (22:58)
[2024-01-10] MEDS ORDERED: TEMA15CA PO (22:58)
[2024-01-10] MEDS ORDERED: LORA-268 PO (22:58)
[2024-01-10] MEDS ORDERED: ESCI5TAB PO (22:58)
[2024-01-11] VITALS (8 sets, daily range): BP systolic 99–116; BP diastolic 48–93; PULSE 67–89; RESP 15–18; TEMP 97.4–98.9; O2SAT 91–100
[2024-01-11 06:05] LABS: BASOPHILS % (AUTO) 0.3 % (0-1); EOSINOPHILS # (AUTO) 0.3 X10'3 (0-0.9); EOSINOPHILS % (AUTO) 2.8 % (0-6); HEMATOCRIT 32.9 % (35.0-45.0); HEMOGLOBIN 10.7 g/dl (12.0-16.0); LYMPHOCYTES # (AUTO) 1.4 X10'3 (1.1-4.8); MEAN CORPUSCULAR HEMOGLOBIN 26.2 PG (27.0-31.0); MEAN CORPUSCULAR HGB CONC 32.4 g/dL (33.0-36.5); MEAN CORPUSCULAR VOLUME 80.9 FL (78-98); MEAN PLATELET VOLUME 8.5 FL (7.4-10.4); MONOCYTES # (AUTO) 0.7 X10'3 (0-0.9); MONOCYTES % (AUTO) 6.6 % (2-12); NEUTROPHILS # (AUTO) 8.2 X10'3 (1.8-7.7); NEUTROPHILS % (AUTO) 77.3 % (42-75); PLATELET COUNT 354 X10'3 (140-440); RED BLOOD COUNT 4.07 X10'6 (4.20-5.60); RED CELL DISTRIBUTION WIDTH 13.8 % (11.5-14.5); WHITE BLOOD COUNT 10.6 X10'3 (4.5-11.0)
[2024-01-11 06:12] LABS: APTT 28 SECONDS (22-32); PROTHROMBIN TIME 10.7 SECONDS (9.0-12.0)
[2024-01-11 06:21] LABS: ALANINE AMINOTRANSFERASE 7 U/L (12-78); ALBUMIN 2.5 G/DL (3.4-5.0); ALBUMIN/GLOBULIN RATIO 0.5 (1.1-1.5); ALKALINE PHOSPHATASE 85 IU/L (46-116); ANION GAP 7 (8-16); ASPARTATE AMINO TRANSFERASE 34 U/L (10-37); BILIRUBIN,TOTAL 0.2 MG/DL (0.1-1.0); BLOOD UREA NITROGEN 7 MG/DL (7-18); CALCIUM 8.8 MG/DL (8.5-10.1); CHLORIDE 105 MMOL/L (99-107); CREATININE 0.35 MG/DL (0.40-0.90); GLUCOSE 112 MG/DL (70-104); MAGNESIUM 2.3 MG/DL (1.5-2.4); PHOSPHORUS 3.7 MG/DL (2.3-4.5); POTASSIUM 3.8 MMOL/L (3.5-5.1); SODIUM 141 MMOL/L (135-145); TOTAL CARBON DIOXIDE 29.1 MMOL/L (24-32); TOTAL PROTEIN 7.2 G/DL (6.4-8.2); eCRCL 153 ML/MIN; eGFR > 90 ML/MIN
[2024-01-11] MEDS ORDERED: magnesium sulf-water 4G/100mL 100 ML IV PRN (20:15)
[2024-01-12] VITALS (7 sets, daily range): BP systolic 96–117; BP diastolic 46–92; PULSE 68–87; RESP 11–18; TEMP 98.1–99.5; O2SAT 94–100
[2024-01-12 05:58] LABS: BASOPHILS % (AUTO) 0.4 % (0-1); EOSINOPHILS # (AUTO) 0.3 X10'3 (0-0.9); EOSINOPHILS % (AUTO) 2.7 % (0-6); HEMATOCRIT 35.3 % (35.0-45.0); HEMOGLOBIN 11.4 g/dl (12.0-16.0); LYMPHOCYTES # (AUTO) 1.8 X10'3 (1.1-4.8); LYMPHOCYTES % (AUTO) 18.8 % (21-51); MEAN CORPUSCULAR HEMOGLOBIN 26.3 PG (27.0-31.0); MEAN CORPUSCULAR HGB CONC 32.3 g/dL (33.0-36.5); MEAN CORPUSCULAR VOLUME 81.4 FL (78-98); MEAN PLATELET VOLUME 8.6 FL (7.4-10.4); MONOCYTES # (AUTO) 0.8 X10'3 (0-0.9); MONOCYTES % (AUTO) 8.4 % (2-12); NEUTROPHILS # (AUTO) 6.8 X10'3 (1.8-7.7); NEUTROPHILS % (AUTO) 69.7 % (42-75); PLATELET COUNT 418 X10'3 (140-440); RED BLOOD COUNT 4.34 X10'6 (4.20-5.60); WHITE BLOOD COUNT 9.8 X10'3 (4.5-11.0)
[2024-01-12 06:05] LABS: APTT 29 SECONDS (22-32); PROTHROMBIN TIME 10.9 SECONDS (9.0-12.0)
[2024-01-12 06:13] LABS: ALANINE AMINOTRANSFERASE 8 U/L (12-78); ALBUMIN 2.6 G/DL (3.4-5.0); ALBUMIN/GLOBULIN RATIO 0.5 (1.1-1.5); ALKALINE PHOSPHATASE 85 IU/L (46-116); ANION GAP 6 (8-16); ASPARTATE AMINO TRANSFERASE 33 U/L (10-37); BILIRUBIN,TOTAL 0.3 MG/DL (0.1-1.0); BLOOD UREA NITROGEN 10 MG/DL (7-18); CALCIUM 9.2 MG/DL (8.5-10.1); CHLORIDE 105 MMOL/L (99-107); CREATININE 0.37 MG/DL (0.40-0.90); GLUCOSE 92 MG/DL (70-104); MAGNESIUM 2.5 MG/DL (1.5-2.4); PHOSPHORUS 4.1 MG/DL (2.3-4.5); SODIUM 141 MMOL/L (135-145); TOTAL CARBON DIOXIDE 30.2 MMOL/L (24-32); TOTAL PROTEIN 7.4 G/DL (6.4-8.2); eCRCL 148 ML/MIN; eGFR > 90 ML/MIN
[2024-01-13] VITALS (8 sets, daily range): BP systolic 96–105; BP diastolic 43–60; PULSE 80–96; RESP 15–20; TEMP 96.9–99.2; O2SAT 96–100
[2024-01-13 06:25] LABS: APTT 28 SECONDS (22-32); INR 1.1 INR
[2024-01-13 06:31] LABS: ALANINE AMINOTRANSFERASE 9 U/L (12-78); ALBUMIN 2.6 G/DL (3.4-5.0); ALBUMIN/GLOBULIN RATIO 0.6 (1.1-1.5); ALKALINE PHOSPHATASE 83 IU/L (46-116); ANION GAP 7 (8-16); ASPARTATE AMINO TRANSFERASE 24 U/L (10-37); BASOPHILS % (AUTO) 0.3 % (0-1); BILIRUBIN,TOTAL 0.2 MG/DL (0.1-1.0); BLOOD UREA NITROGEN 11 MG/DL (7-18); BUN/CREATININE RATIO 31.4 (10.0-20.0); CALCIUM 9.1 MG/DL (8.5-10.1); CHLORIDE 104 MMOL/L (99-107); CREATININE 0.35 MG/DL (0.40-0.90); EOSINOPHILS # (AUTO) 0.1 X10'3 (0-0.9); EOSINOPHILS % (AUTO) 2.1 % (0-6); GLUCOSE 105 MG/DL (70-104); HEMATOCRIT 32.3 % (35.0-45.0); HEMOGLOBIN 10.6 g/dl (12.0-16.0); LYMPHOCYTES # (AUTO) 1.4 X10'3 (1.1-4.8); LYMPHOCYTES % (AUTO) 20.4 % (21-51); MAGNESIUM 2.5 MG/DL (1.5-2.4); MEAN CORPUSCULAR HEMOGLOBIN 26.5 PG (27.0-31.0); MEAN CORPUSCULAR HGB CONC 32.9 g/dL (33.0-36.5); MEAN CORPUSCULAR VOLUME 80.7 FL (78-98); MONOCYTES # (AUTO) 0.7 X10'3 (0-0.9); MONOCYTES % (AUTO) 9.7 % (2-12); NEUTROPHILS # (AUTO) 4.6 X10'3 (1.8-7.7); NEUTROPHILS % (AUTO) 67.5 % (42-75); PHOSPHORUS 4.1 MG/DL (2.3-4.5); PLATELET COUNT 493 X10'3 (140-440); POTASSIUM 3.8 MMOL/L (3.5-5.1); PREALBUMIN 26.3 MG/DL (19-36); RED CELL DISTRIBUTION WIDTH 14.6 % (11.5-14.5); SODIUM 140 MMOL/L (135-145); TOTAL CARBON DIOXIDE 29.1 MMOL/L (24-32); TOTAL PROTEIN 7.1 G/DL (6.4-8.2); WHITE BLOOD COUNT 6.8 X10'3 (4.5-11.0); eCRCL 160 ML/MIN; eGFR > 90 ML/MIN
[2024-01-14] VITALS (8 sets, daily range): BP systolic 90–104; BP diastolic 39–74; PULSE 67–98; RESP 13–16; TEMP 97.2–99.1; O2SAT 93–99
[2024-01-14 04:31] LABS: BASOPHILS % (AUTO) 0.6 % (0-1); EOSINOPHILS # (AUTO) 0.1 X10'3 (0-0.9); EOSINOPHILS % (AUTO) 1.8 % (0-6); HEMATOCRIT 34.2 % (35.0-45.0); LYMPHOCYTES # (AUTO) 1.8 X10'3 (1.1-4.8); LYMPHOCYTES % (AUTO) 28.2 % (21-51); MEAN CORPUSCULAR HEMOGLOBIN 26.2 PG (27.0-31.0); MEAN CORPUSCULAR HGB CONC 32.2 g/dL (33.0-36.5); MEAN CORPUSCULAR VOLUME 81.5 FL (78-98); MEAN PLATELET VOLUME 7.8 FL (7.4-10.4); MONOCYTES # (AUTO) 0.6 X10'3 (0-0.9); MONOCYTES % (AUTO) 8.7 % (2-12); NEUTROPHILS # (AUTO) 3.9 X10'3 (1.8-7.7); NEUTROPHILS % (AUTO) 60.7 % (42-75); PLATELET COUNT 501 X10'3 (140-440); RED CELL DISTRIBUTION WIDTH 14.4 % (11.5-14.5); WHITE BLOOD COUNT 6.4 X10'3 (4.5-11.0)
[2024-01-14 04:44] LABS: APTT 28 SECONDS (22-32); INR 1.1 INR; PROTHROMBIN TIME 11.4 SECONDS (9.0-12.0)
[2024-01-14 04:46] LABS: ALANINE AMINOTRANSFERASE 11 U/L (12-78); ALBUMIN 2.7 G/DL (3.4-5.0); ALBUMIN/GLOBULIN RATIO 0.6 (1.1-1.5); ALKALINE PHOSPHATASE 83 IU/L (46-116); ANION GAP 3 (8-16); ASPARTATE AMINO TRANSFERASE 37 U/L (10-37); BILIRUBIN,TOTAL 0.3 MG/DL (0.1-1.0); BLOOD UREA NITROGEN 14 MG/DL (7-18); BUN/CREATININE RATIO 32.6 (10.0-20.0); CALCIUM 9.1 MG/DL (8.5-10.1); CHLORIDE 103 MMOL/L (99-107); CREATININE 0.43 MG/DL (0.40-0.90); GLUCOSE 107 MG/DL (70-104); MAGNESIUM 2.3 MG/DL (1.5-2.4); PHOSPHORUS 3.9 MG/DL (2.3-4.5); POTASSIUM 4.2 MMOL/L (3.5-5.1); SODIUM 137 MMOL/L (135-145); TOTAL CARBON DIOXIDE 30.7 MMOL/L (24-32); TOTAL PROTEIN 7.3 G/DL (6.4-8.2); eCRCL 130 ML/MIN; eGFR > 90 ML/MIN
[2024-01-15] VITALS (8 sets, daily range): BP systolic 92–106; BP diastolic 51–66; PULSE 65–99; RESP 13–18; TEMP 97.6–99.1; O2SAT 93–100
[2024-01-15 06:48] LABS: BASOPHILS # (AUTO) 0.1 X10'3 (0-0.2); BASOPHILS % (AUTO) 0.7 % (0-1); EOSINOPHILS # (AUTO) 0.2 X10'3 (0-0.9); EOSINOPHILS % (AUTO) 2.3 % (0-6); HEMATOCRIT 34.7 % (35.0-45.0); HEMOGLOBIN 11.1 g/dl (12.0-16.0); LYMPHOCYTES # (AUTO) 1.3 X10'3 (1.1-4.8); LYMPHOCYTES % (AUTO) 15.9 % (21-51); MEAN CORPUSCULAR HEMOGLOBIN 26.2 PG (27.0-31.0); MEAN CORPUSCULAR HGB CONC 32.1 g/dL (33.0-36.5); MEAN CORPUSCULAR VOLUME 81.7 FL (78-98); MEAN PLATELET VOLUME 7.7 FL (7.4-10.4); MONOCYTES # (AUTO) 0.7 X10'3 (0-0.9); MONOCYTES % (AUTO) 8.8 % (2-12); NEUTROPHILS # (AUTO) 6.1 X10'3 (1.8-7.7); NEUTROPHILS % (AUTO) 72.3 % (42-75); PLATELET COUNT 539 X10'3 (140-440); RED BLOOD COUNT 4.24 X10'6 (4.20-5.60); RED CELL DISTRIBUTION WIDTH 14.6 % (11.5-14.5); WHITE BLOOD COUNT 8.4 X10'3 (4.5-11.0)
[2024-01-15 07:13] LABS: APTT 29 SECONDS (22-32); INR 1.1 INR; PROTHROMBIN TIME 11.3 SECONDS (9.0-12.0)
[2024-01-15 07:15] LABS: ALANINE AMINOTRANSFERASE 11 U/L (12-78); ALBUMIN 2.8 G/DL (3.4-5.0); ALBUMIN/GLOBULIN RATIO 0.6 (1.1-1.5); ALKALINE PHOSPHATASE 85 IU/L (46-116); ANION GAP 8 (8-16); ASPARTATE AMINO TRANSFERASE 22 U/L (10-37); BILIRUBIN,TOTAL 0.3 MG/DL (0.1-1.0); BLOOD UREA NITROGEN 11 MG/DL (7-18); BUN/CREATININE RATIO 28.9 (10.0-20.0); CALCIUM 9.1 MG/DL (8.5-10.1); CHLORIDE 103 MMOL/L (99-107); CREATININE 0.38 MG/DL (0.40-0.90); GLUCOSE 98 MG/DL (70-104); MAGNESIUM 2.2 MG/DL (1.5-2.4); PHOSPHORUS 3.6 MG/DL (2.3-4.5); SODIUM 142 MMOL/L (135-145); TOTAL CARBON DIOXIDE 30.6 MMOL/L (24-32); TOTAL PROTEIN 7.2 G/DL (6.4-8.2); eCRCL 148 ML/MIN; eGFR > 90 ML/MIN
[2024-01-15 15:33] LABS: CLARITY,URINE CLOUDY (Clear); COLOR,URINE RED (Yellow)
[2024-01-15 15:35] LABS: UA COLLECTION TYPE NON-SPECIFIED
[2024-01-15 15:44] LABS: BACTERIA,URINE FEW /HPF (Neg); MUCUS STRANDS FEW /LPF (Neg); RBC,URINE TNTC /HPF (0-2); SQUAMOUS EPITHELIAL CELL,UR MODERATE /LPF (FEW); WBC,URINE 0-4 /HPF (0-4)
[2024-01-16] VITALS (7 sets, daily range): BP systolic 94–116; BP diastolic 36–90; PULSE 65–93; RESP 13–20; TEMP 97.4–99; O2SAT 96–99
[2024-01-16 08:36] LABS: BASOPHILS # (AUTO) 0.1 X10'3 (0-0.2); BASOPHILS % (AUTO) 0.6 % (0-1); EOSINOPHILS # (AUTO) 0.2 X10'3 (0-0.9); EOSINOPHILS % (AUTO) 1.6 % (0-6); HEMATOCRIT 37.5 % (35.0-45.0); HEMOGLOBIN 11.9 g/dl (12.0-16.0); LYMPHOCYTES # (AUTO) 1.7 X10'3 (1.1-4.8); LYMPHOCYTES % (AUTO) 16.1 % (21-51); MEAN CORPUSCULAR HGB CONC 31.7 g/dL (33.0-36.5); MEAN CORPUSCULAR VOLUME 82.2 FL (78-98); MONOCYTES # (AUTO) 0.8 X10'3 (0-0.9); MONOCYTES % (AUTO) 7.3 % (2-12); NEUTROPHILS # (AUTO) 7.7 X10'3 (1.8-7.7); NEUTROPHILS % (AUTO) 74.4 % (42-75); PLATELET COUNT 549 X10'3 (140-440); RED BLOOD COUNT 4.56 X10'6 (4.20-5.60); WHITE BLOOD COUNT 10.4 X10'3 (4.5-11.0)
[2024-01-16 08:46] LABS: APTT 29 SECONDS (22-32); INR 1.1 INR; PROTHROMBIN TIME 11.3 SECONDS (9.0-12.0)
[2024-01-16 08:54] LABS: ALANINE AMINOTRANSFERASE 10 U/L (12-78); ALBUMIN 2.9 G/DL (3.4-5.0); ALBUMIN/GLOBULIN RATIO 0.6 (1.1-1.5); ALKALINE PHOSPHATASE 94 IU/L (46-116); ANION GAP 10 (8-16); ASPARTATE AMINO TRANSFERASE 23 U/L (10-37); BILIRUBIN,TOTAL 0.3 MG/DL (0.1-1.0); BLOOD UREA NITROGEN 12 MG/DL (7-18); BUN/CREATININE RATIO 32.4 (10.0-20.0); CALCIUM 9.2 MG/DL (8.5-10.1); CHLORIDE 103 MMOL/L (99-107); CREATININE 0.37 MG/DL (0.40-0.90); GLUCOSE 110 MG/DL (70-104); MAGNESIUM 2.2 MG/DL (1.5-2.4); PHOSPHORUS 3.9 MG/DL (2.3-4.5); SODIUM 141 MMOL/L (135-145); TOTAL CARBON DIOXIDE 28.3 MMOL/L (24-32); TOTAL PROTEIN 7.6 G/DL (6.4-8.2); eCRCL 139 ML/MIN; eGFR > 90 ML/MIN
[2024-01-17] VITALS (8 sets, daily range): BP systolic 91–128; BP diastolic 52–68; PULSE 73–98; RESP 14–18; TEMP 97.6–98.9; O2SAT 97–100
[2024-01-17 06:33] LABS: APTT 29 SECONDS (22-32)
[2024-01-17 06:54] LABS: ALANINE AMINOTRANSFERASE 8 U/L (12-78); ALBUMIN 3.1 G/DL (3.4-5.0); ALBUMIN/GLOBULIN RATIO 0.7 (1.1-1.5); ALKALINE PHOSPHATASE 99 IU/L (46-116); ANION GAP 11 (8-16); ASPARTATE AMINO TRANSFERASE 22 U/L (10-37); BILIRUBIN,TOTAL 0.3 MG/DL (0.1-1.0); BLOOD UREA NITROGEN 11 MG/DL (7-18); BUN/CREATININE RATIO 28.2 (10.0-20.0); CALCIUM 9.3 MG/DL (8.5-10.1); CHLORIDE 103 MMOL/L (99-107); CREATININE 0.39 MG/DL (0.40-0.90); GLUCOSE 120 MG/DL (70-104); MAGNESIUM 2.2 MG/DL (1.5-2.4); PHOSPHORUS 3.9 MG/DL (2.3-4.5); POTASSIUM 3.7 MMOL/L (3.5-5.1); PREALBUMIN 28.8 MG/DL (19-36); SODIUM 142 MMOL/L (135-145); TOTAL CARBON DIOXIDE 28.1 MMOL/L (24-32); TOTAL PROTEIN 7.8 G/DL (6.4-8.2); eCRCL 132 ML/MIN; eGFR > 90 ML/MIN
[2024-01-17 07:04] LABS: BASOPHILS % (AUTO) 0.3 % (0-1); EOSINOPHILS # (AUTO) 0.2 X10'3 (0-0.9); EOSINOPHILS % (AUTO) 1.8 % (0-6); HEMATOCRIT 38.2 % (35.0-45.0); HEMOGLOBIN 12.1 g/dl (12.0-16.0); LYMPHOCYTES # (AUTO) 1.7 X10'3 (1.1-4.8); LYMPHOCYTES % (AUTO) 12.4 % (21-51); MEAN CORPUSCULAR HEMOGLOBIN 26.1 PG (27.0-31.0); MEAN CORPUSCULAR HGB CONC 31.7 g/dL (33.0-36.5); MEAN CORPUSCULAR VOLUME 82.3 FL (78-98); MONOCYTES # (AUTO) 0.7 X10'3 (0-0.9); MONOCYTES % (AUTO) 5.2 % (2-12); NEUTROPHILS # (AUTO) 10.8 X10'3 (1.8-7.7); NEUTROPHILS % (AUTO) 80.3 % (42-75); PLATELET COUNT 542 X10'3 (140-440); RED BLOOD COUNT 4.64 X10'6 (4.20-5.60); RED CELL DISTRIBUTION WIDTH 15.2 % (11.5-14.5); WHITE BLOOD COUNT 13.5 X10'3 (4.5-11.0)
[2024-01-17] MEDS: ARGININE/GLUTAMINE/CALCIUM BMB (JUVEN 19.3GM PKT) 1 EACH POWD.PACK GT SCH (20:15)
[2024-01-18] VITALS (7 sets, daily range): BP systolic 94–147; BP diastolic 41–79; PULSE 71–109; RESP 14–18; TEMP 97.4–99.6; O2SAT 94–99
[2024-01-18 06:54] LABS: BASOPHILS # (AUTO) 0.1 X10'3 (0-0.2); BASOPHILS % (AUTO) 0.3 % (0-1); EOSINOPHILS # (AUTO) 0.2 X10'3 (0-0.9); EOSINOPHILS % (AUTO) 1.5 % (0-6); HEMATOCRIT 38.7 % (35.0-45.0); HEMOGLOBIN 12.3 g/dl (12.0-16.0); LYMPHOCYTES # (AUTO) 1.3 X10'3 (1.1-4.8); LYMPHOCYTES % (AUTO) 9.2 % (21-51); MEAN CORPUSCULAR HEMOGLOBIN 26.2 PG (27.0-31.0); MEAN CORPUSCULAR HGB CONC 31.9 g/dL (33.0-36.5); MEAN CORPUSCULAR VOLUME 82.3 FL (78-98); MEAN PLATELET VOLUME 8.1 FL (7.4-10.4); MONOCYTES # (AUTO) 0.6 X10'3 (0-0.9); MONOCYTES % (AUTO) 4.4 % (2-12); NEUTROPHILS # (AUTO) 12.3 X10'3 (1.8-7.7); NEUTROPHILS % (AUTO) 84.6 % (42-75); PLATELET COUNT 523 X10'3 (140-440); RED BLOOD COUNT 4.71 X10'6 (4.20-5.60); RED CELL DISTRIBUTION WIDTH 15.3 % (11.5-14.5); WHITE BLOOD COUNT 14.5 X10'3 (4.5-11.0)
[2024-01-18 07:05] LABS: APTT 31 SECONDS (22-32); INR 1.1 INR; PROTHROMBIN TIME 11.3 SECONDS (9.0-12.0)
[2024-01-18 07:08] LABS: ALANINE AMINOTRANSFERASE 10 U/L (12-78); ALBUMIN/GLOBULIN RATIO 0.6 (1.1-1.5); ALKALINE PHOSPHATASE 91 IU/L (46-116); ANION GAP 4 (8-16); ASPARTATE AMINO TRANSFERASE 19 U/L (10-37); BILIRUBIN,TOTAL 0.3 MG/DL (0.1-1.0); BLOOD UREA NITROGEN 20 MG/DL (7-18); BUN/CREATININE RATIO 46.5 (10.0-20.0); CALCIUM 8.9 MG/DL (8.5-10.1); CHLORIDE 103 MMOL/L (99-107); CREATININE 0.43 MG/DL (0.40-0.90); GLUCOSE 115 MG/DL (70-104); MAGNESIUM 1.9 MG/DL (1.5-2.4); PHOSPHORUS 3.7 MG/DL (2.3-4.5); POTASSIUM 3.7 MMOL/L (3.5-5.1); SODIUM 139 MMOL/L (135-145); TOTAL CARBON DIOXIDE 31.6 MMOL/L (24-32); TOTAL PROTEIN 7.7 G/DL (6.4-8.2); eCRCL 114 ML/MIN; eGFR > 90 ML/MIN
[2024-01-18] MEDS: ringers solution, lacted 1,000 ML IV ONE (13:51)
[2024-01-18 16:20] LABS: BILIRUBIN,URINE NEGATIVE (Neg); CLARITY,URINE CLOUDY (Clear); COLOR,URINE YELLOW (Yellow); GLUCOSE, URINE NEGATIVE (Neg); KETONES,URINE NEGATIVE (Neg); LEUKOCYTE ESTERASE ,URINE LARGE (Neg); NITRITES, URINE NEGATIVE (Neg); OCCULT BLOOD,URINE LARGE (Neg); PROTEIN,URINE 30 mg/dl (Neg)
[2024-01-18 16:27] LABS: UA COLLECTION TYPE FOLEY CATH
[2024-01-18 16:29] LABS: AMORPHOUS PHOSPHATES 3+; BACTERIA,URINE 4+ /HPF (Neg); RBC,URINE TNTC /HPF (0-2); TRIPLE PHOSPHATE CRYST 3+ /HPF (NEGATIVE)
[2024-01-18 16:30] LABS: SQUAMOUS EPITHELIAL CELL,UR FEW /LPF (FEW)
[2024-01-19 02:00] VITALS: BP 101/56; PULSE 69; RESP 17; TEMP 96.6; O2SAT 100
[2024-01-19 06:19] LABS: BASOPHILS # (AUTO) 0.1 X10'3 (0-0.2); BASOPHILS % (AUTO) 0.5 % (0-1); EOSINOPHILS # (AUTO) 0.3 X10'3 (0-0.9); EOSINOPHILS % (AUTO) 2.3 % (0-6); HEMATOCRIT 36.7 % (35.0-45.0); HEMOGLOBIN 11.7 g/dl (12.0-16.0); LYMPHOCYTES # (AUTO) 1.6 X10'3 (1.1-4.8); LYMPHOCYTES % (AUTO) 14.5 % (21-51); MEAN CORPUSCULAR HEMOGLOBIN 26.4 PG (27.0-31.0); MEAN CORPUSCULAR HGB CONC 31.9 g/dL (33.0-36.5); MEAN CORPUSCULAR VOLUME 82.6 FL (78-98); MONOCYTES # (AUTO) 0.8 X10'3 (0-0.9); MONOCYTES % (AUTO) 7.2 % (2-12); NEUTROPHILS # (AUTO) 8.4 X10'3 (1.8-7.7); NEUTROPHILS % (AUTO) 75.5 % (42-75); PLATELET COUNT 496 X10'3 (140-440); RED BLOOD COUNT 4.44 X10'6 (4.20-5.60); RED CELL DISTRIBUTION WIDTH 15.6 % (11.5-14.5); WHITE BLOOD COUNT 11.1 X10'3 (4.5-11.0)
[2024-01-19 06:32] LABS: APTT 31 SECONDS (22-32); PROTHROMBIN TIME 11.1 SECONDS (9.0-12.0)
[2024-01-19 06:41] LABS: ALANINE AMINOTRANSFERASE 10 U/L (12-78); ALBUMIN 2.9 G/DL (3.4-5.0); ALBUMIN/GLOBULIN RATIO 0.7 (1.1-1.5); ALKALINE PHOSPHATASE 95 IU/L (46-116); ANION GAP 5 (8-16); ASPARTATE AMINO TRANSFERASE 22 U/L (10-37); BILIRUBIN,TOTAL 0.3 MG/DL (0.1-1.0); BLOOD UREA NITROGEN 8 MG/DL (7-18); BUN/CREATININE RATIO 21.1 (10.0-20.0); CALCIUM 9.4 MG/DL (8.5-10.1); CHLORIDE 105 MMOL/L (99-107); CREATININE 0.38 MG/DL (0.40-0.90); GLUCOSE 100 MG/DL (70-104); MAGNESIUM 2.1 MG/DL (1.5-2.4); PHOSPHORUS 4.1 MG/DL (2.3-4.5); POTASSIUM 3.8 MMOL/L (3.5-5.1); SODIUM 140 MMOL/L (135-145); TOTAL CARBON DIOXIDE 29.6 MMOL/L (24-32); TOTAL PROTEIN 7.3 G/DL (6.4-8.2); eCRCL 129 ML/MIN; eGFR > 90 ML/MIN
[2024-01-19 11:00] VITALS: BP 137/81; PULSE 84; RESP 14; TEMP 98.1; O2SAT 100
[2024-01-19 15:00] VITALS: BP 114/61; PULSE 89; RESP 21; TEMP 98.3; O2SAT 98
[2024-01-19 18:00] VITALS: BP 121/80; PULSE 92; RESP 16; TEMP 97.6; O2SAT 98
[2024-01-19 22:00] VITALS: BP 104/69; PULSE 64; RESP 16; TEMP 97.3; O2SAT 100
[2024-01-20 02:00] VITALS: BP 111/52; PULSE 98; RESP 16; TEMP 98; O2SAT 99
[2024-01-20 11:00] VITALS: BP 104/57; PULSE 106; RESP 18; TEMP 98.9; O2SAT 97
[2024-01-20 15:00] VITALS: BP 115/58; PULSE 103; RESP 18; TEMP 98.9; O2SAT 98
[2024-01-20] MEDS: CefTRIAXone/D5W-Rocephin 1gm 50 ML IV SCH (15:47)
[2024-01-20 18:00] VITALS: BP 113/71; PULSE 94; RESP 18; TEMP 98.8; O2SAT 98
[2024-01-20 20:00] VITALS: RESP 19; O2SAT 95
[2024-01-20 23:40] VITALS: BP 110/65; PULSE 78; RESP 18; TEMP 97.6; O2SAT 98
[2024-01-21 06:00] VITALS: BP 118/68; PULSE 73; RESP 16; TEMP 97.3; O2SAT 99
[2024-01-21 11:16] VITALS: BP 104/55; PULSE 75; RESP 16; TEMP 98.3; O2SAT 99
[2024-01-21 18:00] VITALS: BP 124/67; PULSE 80; RESP 18; TEMP 98.1; O2SAT 96
[2024-01-21 20:00] VITALS: RESP 18; O2SAT 96
[2024-01-21 22:00] VITALS: BP 113/69; PULSE 91; RESP 22; TEMP 98.6; O2SAT 98
[2024-01-21 23:29] VITALS: RESP 18; O2SAT 96
[2024-01-22 06:00] VITALS: BP 106/66; PULSE 67; RESP 14; TEMP 97.6; O2SAT 100
[2024-01-22 08:51] VITALS: RESP 16; O2SAT 100
[2024-01-22 10:00] VITALS: BP 113/57; PULSE 92; RESP 16; TEMP 97.7; O2SAT 98
[2024-01-22 18:00] VITALS: BP 140/77; PULSE 87; RESP 18; TEMP 97.8; O2SAT 97
[2024-01-22 20:00] VITALS: RESP 18; O2SAT 97
[2024-01-22] MEDS: ciprofloxacin lact 400MG/200ML 200 ML IV SCH (20:24)
[2024-01-22 22:00] VITALS: BP 138/69; PULSE 86; RESP 16; TEMP 98.3; O2SAT 98
[2024-01-23 06:00] VITALS: BP 105/52; PULSE 70; RESP 14; TEMP 97.7; O2SAT 100
[2024-01-23 08:00] VITALS: RESP 16; O2SAT 100
[2024-01-23 10:30] LABS: BASOPHILS % (AUTO) 0.4 % (0-1); EOSINOPHILS # (AUTO) 0.1 X10'3 (0-0.9); EOSINOPHILS % (AUTO) 1.4 % (0-6); HEMATOCRIT 39.4 % (35.0-45.0); HEMOGLOBIN 12.4 g/dl (12.0-16.0); LYMPHOCYTES # (AUTO) 1.2 X10'3 (1.1-4.8); LYMPHOCYTES % (AUTO) 13.6 % (21-51); MEAN CORPUSCULAR HGB CONC 31.5 g/dL (33.0-36.5); MEAN CORPUSCULAR VOLUME 82.5 FL (78-98); MEAN PLATELET VOLUME 8.3 FL (7.4-10.4); MONOCYTES # (AUTO) 0.7 X10'3 (0-0.9); MONOCYTES % (AUTO) 7.8 % (2-12); NEUTROPHILS # (AUTO) 6.7 X10'3 (1.8-7.7); NEUTROPHILS % (AUTO) 76.8 % (42-75); PLATELET COUNT 372 X10'3 (140-440); RED BLOOD COUNT 4.77 X10'6 (4.20-5.60); RED CELL DISTRIBUTION WIDTH 15.7 % (11.5-14.5); WHITE BLOOD COUNT 8.7 X10'3 (4.5-11.0)
[2024-01-23 10:36] LABS: ALBUMIN 3.1 G/DL (3.4-5.0); ANION GAP 8 (8-16); BLOOD UREA NITROGEN 14 MG/DL (7-18); BUN/CREATININE RATIO 30.4 (10.0-20.0); CALCIUM 9.1 MG/DL (8.5-10.1); CHLORIDE 103 MMOL/L (99-107); CREATININE 0.46 MG/DL (0.40-0.90); GLUCOSE 128 MG/DL (70-104); POTASSIUM 3.6 MMOL/L (3.5-5.1); SODIUM 140 MMOL/L (135-145); TOTAL CARBON DIOXIDE 29.2 MMOL/L (24-32); eCRCL 114 ML/MIN; eGFR > 90 ML/MIN
[2024-01-23 18:00] VITALS: BP 127/62; PULSE 89; RESP 15; TEMP 98.2; O2SAT 98
[2024-01-23 20:00] VITALS: RESP 14; O2SAT 98
[2024-01-23 22:00] VITALS: BP 131/92; PULSE 66; RESP 14; TEMP 98.7; O2SAT 93
[2024-01-24] VITALS (8 sets, daily range): BP systolic 102–129; BP diastolic 62–70; PULSE 70–90; RESP 12–20; TEMP 97.5–98.8; O2SAT 95–100
[2024-01-24] MEDS: ciprofloxacin 250mg tablet PO SCH (22:35)
[2024-01-25] VITALS (9 sets, daily range): BP systolic 107–110; BP diastolic 49–68; PULSE 78–95; RESP 16–20; TEMP 97.6–98.4; O2SAT 98–99
[2024-01-26] VITALS (8 sets, daily range): BP systolic 97–115; BP diastolic 55–62; PULSE 72–89; RESP 14–20; TEMP 97.6–98.4; O2SAT 95–100
[2024-01-26 06:00] LABS: BASOPHILS # (AUTO) 0.1 X10'3 (0-0.2); BASOPHILS % (AUTO) 1.3 % (0-1); EOSINOPHILS # (AUTO) 0.2 X10'3 (0-0.9); EOSINOPHILS % (AUTO) 3.5 % (0-6); HEMATOCRIT 39.4 % (35.0-45.0); HEMOGLOBIN 12.9 g/dl (12.0-16.0); LYMPHOCYTES # (AUTO) 1.5 X10'3 (1.1-4.8); LYMPHOCYTES % (AUTO) 23.2 % (21-51); MEAN CORPUSCULAR HEMOGLOBIN 27.1 PG (27.0-31.0); MEAN CORPUSCULAR HGB CONC 32.7 g/dL (33.0-36.5); MEAN CORPUSCULAR VOLUME 82.9 FL (78-98); MEAN PLATELET VOLUME 8.8 FL (7.4-10.4); MONOCYTES # (AUTO) 0.6 X10'3 (0-0.9); MONOCYTES % (AUTO) 9.6 % (2-12); NEUTROPHILS # (AUTO) 3.9 X10'3 (1.8-7.7); NEUTROPHILS % (AUTO) 62.4 % (42-75); PLATELET COUNT 297 X10'3 (140-440); RED BLOOD COUNT 4.76 X10'6 (4.20-5.60); RED CELL DISTRIBUTION WIDTH 15.9 % (11.5-14.5); WHITE BLOOD COUNT 6.3 X10'3 (4.5-11.0)
[2024-01-26 06:10] LABS: ALBUMIN 3.2 G/DL (3.4-5.0); ANION GAP 6 (8-16); BLOOD UREA NITROGEN 20 MG/DL (7-18); BUN/CREATININE RATIO 46.5 (10.0-20.0); CALCIUM 9.2 MG/DL (8.5-10.1); CHLORIDE 105 MMOL/L (99-107); CREATININE 0.43 MG/DL (0.40-0.90); GLUCOSE 97 MG/DL (70-104); POTASSIUM 3.9 MMOL/L (3.5-5.1); SODIUM 140 MMOL/L (135-145); TOTAL CARBON DIOXIDE 29.5 MMOL/L (24-32); eCRCL 129 ML/MIN; eGFR > 90 ML/MIN
[2024-01-26] MEDS: lansoprazole 15mg solutab PEG ONE (08:38)
[2024-01-26] MEDS: ciprofloxacin 250mg tablet PEG SCH (11:00)
[2024-01-27] VITALS (7 sets, daily range): BP systolic 103–123; BP diastolic 57–77; PULSE 83–105; RESP 16–20; TEMP 97–98.6; O2SAT 95–99
[2024-01-27] MEDS: magnesium hydroxide 30ml (MOM) UD suspension PEG PRN (07:34)
[2024-01-28] VITALS (10 sets, daily range): BP systolic 122–160; BP diastolic 59–75; PULSE 65–116; RESP 12–18; TEMP 97.2–98; O2SAT 94–99
[2024-01-29 05:00] VITALS: BP 122/84; PULSE 83; RESP 16; TEMP 98.1; O2SAT 98
[2024-01-29 07:58] LABS: BASOPHILS % (AUTO) 0.5 % (0-1); EOSINOPHILS # (AUTO) 0.2 X10'3 (0-0.9); EOSINOPHILS % (AUTO) 2.8 % (0-6); HEMATOCRIT 40.1 % (35.0-45.0); HEMOGLOBIN 12.9 g/dl (12.0-16.0); LYMPHOCYTES # (AUTO) 1.7 X10'3 (1.1-4.8); LYMPHOCYTES % (AUTO) 20.9 % (21-51); MEAN CORPUSCULAR HEMOGLOBIN 26.8 PG (27.0-31.0); MEAN CORPUSCULAR HGB CONC 32.2 g/dL (33.0-36.5); MEAN CORPUSCULAR VOLUME 83.2 FL (78-98); MEAN PLATELET VOLUME 9.2 FL (7.4-10.4); MONOCYTES # (AUTO) 0.8 X10'3 (0-0.9); MONOCYTES % (AUTO) 10.1 % (2-12); NEUTROPHILS # (AUTO) 5.2 X10'3 (1.8-7.7); NEUTROPHILS % (AUTO) 65.7 % (42-75); PLATELET COUNT 252 X10'3 (140-440); RED BLOOD COUNT 4.82 X10'6 (4.20-5.60); RED CELL DISTRIBUTION WIDTH 16.1 % (11.5-14.5)
[2024-01-29 08:00] VITALS: RESP 14; O2SAT 98
[2024-01-29 08:17] LABS: ALBUMIN 3.2 G/DL (3.4-5.0); ANION GAP 7 (8-16); BLOOD UREA NITROGEN 17 MG/DL (7-18); BUN/CREATININE RATIO 45.9 (10.0-20.0); CALCIUM 8.9 MG/DL (8.5-10.1); CHLORIDE 103 MMOL/L (99-107); CREATININE 0.37 MG/DL (0.40-0.90); GLUCOSE 104 MG/DL (70-104); POTASSIUM 3.8 MMOL/L (3.5-5.1); SODIUM 140 MMOL/L (135-145); TOTAL CARBON DIOXIDE 29.7 MMOL/L (24-32); eCRCL 153 ML/MIN; eGFR > 90 ML/MIN
[2024-01-29 08:21] VITALS: PULSE 87; RESP 18; O2SAT 98
[2024-01-29 10:00] VITALS: BP 103/58; PULSE 82; RESP 14; TEMP 97.7; O2SAT 98
[2024-01-29 18:00] VITALS: BP 116/40; PULSE 60; RESP 14; TEMP 98.6; O2SAT 93
[2024-01-29] MEDS: BETAMETHASONE DIPROPIONATE 0.05% TP SCH (20:20)
[2024-01-29 22:00] VITALS: BP 121/64; PULSE 81; RESP 14; RESP 18; TEMP 98.3; O2SAT 93
[2024-01-30 06:00] VITALS: BP 122/84; PULSE 80; RESP 22; TEMP 98.5; O2SAT 98
[2024-01-30 11:00] VITALS: BP 104/61; PULSE 91; RESP 16; TEMP 99.1; O2SAT 98
[2024-01-30 18:00] VITALS: BP 103/70; PULSE 90; RESP 16; TEMP 97.6; O2SAT 94
[2024-01-30 20:00] VITALS: RESP 13; O2SAT 94
[2024-01-30 22:00] VITALS: BP 98/65; PULSE 71; RESP 12; TEMP 98.6; O2SAT 97
[2024-01-31] VITALS (7 sets, daily range): BP systolic 103–130; BP diastolic 48–71; PULSE 76–91; RESP 12–20; TEMP 98–99.6; O2SAT 96–99
[2024-01-31] MEDS: scopolamine 1MG/72H patch 1 PATCH PATCH.TD.3 TD SCH (14:00)
[2024-02-01] VITALS (7 sets, daily range): BP systolic 100–121; BP diastolic 58–71; PULSE 76–94; RESP 16–20; TEMP 97.8–98.5; O2SAT 96–99
[2024-02-01 06:02] LABS: BASOPHILS % (AUTO) 0.5 % (0-1); EOSINOPHILS # (AUTO) 0.3 X10'3 (0-0.9); EOSINOPHILS % (AUTO) 4.4 % (0-6); HEMATOCRIT 39.7 % (35.0-45.0); HEMOGLOBIN 12.9 g/dl (12.0-16.0); LYMPHOCYTES # (AUTO) 1.5 X10'3 (1.1-4.8); MEAN CORPUSCULAR HEMOGLOBIN 26.8 PG (27.0-31.0); MEAN CORPUSCULAR HGB CONC 32.4 g/dL (33.0-36.5); MEAN CORPUSCULAR VOLUME 82.8 FL (78-98); MONOCYTES # (AUTO) 0.6 X10'3 (0-0.9); MONOCYTES % (AUTO) 8.7 % (2-12); NEUTROPHILS # (AUTO) 4.9 X10'3 (1.8-7.7); NEUTROPHILS % (AUTO) 66.4 % (42-75); PLATELET COUNT 221 X10'3 (140-440); RED BLOOD COUNT 4.79 X10'6 (4.20-5.60); RED CELL DISTRIBUTION WIDTH 16.1 % (11.5-14.5); WHITE BLOOD COUNT 7.3 X10'3 (4.5-11.0)
[2024-02-01 06:09] LABS: ALBUMIN 3.2 G/DL (3.4-5.0); ANION GAP 3 (8-16); BLOOD UREA NITROGEN 21 MG/DL (7-18); BUN/CREATININE RATIO 48.8 (10.0-20.0); CALCIUM 9.3 MG/DL (8.5-10.1); CHLORIDE 106 MMOL/L (99-107); CREATININE 0.43 MG/DL (0.40-0.90); GLUCOSE 81 MG/DL (70-104); POTASSIUM 3.8 MMOL/L (3.5-5.1); SODIUM 139 MMOL/L (135-145); TOTAL CARBON DIOXIDE 29.7 MMOL/L (24-32); eCRCL 132 ML/MIN; eGFR > 90 ML/MIN
[2024-02-02] VITALS (9 sets, daily range): BP systolic 102–111; BP diastolic 61–70; PULSE 66–85; RESP 14–20; TEMP 97.3–98.9; O2SAT 96–98
[2024-02-03] VITALS (7 sets, daily range): BP systolic 104–110; BP diastolic 56–67; PULSE 68–80; RESP 14–72; TEMP 97.6–98.6; O2SAT 94–99
[2024-02-04 06:48] VITALS: BP 99/59; PULSE 68; RESP 16; TEMP 97.9; O2SAT 99
[2024-02-04 10:00] VITALS: BP 119/65; PULSE 74; RESP 14; RESP 16; TEMP 97.7; O2SAT 100; O2SAT 96
[2024-02-04 18:00] VITALS: BP 92/70; PULSE 77; RESP 14; TEMP 98.3; O2SAT 93
[2024-02-04] MEDS ORDERED: betamethasone diprop. 0.05% ointment 15gm TP SCH (20:00)
[2024-02-04 20:09] VITALS: RESP 14; O2SAT 93
[2024-02-04 22:00] VITALS: BP 103/72; PULSE 60; RESP 16; TEMP 98.3; O2SAT 97
[2024-02-05 06:00] VITALS: BP 91/47; PULSE 75; RESP 18; TEMP 98.2; O2SAT 99
[2024-02-05 08:00] VITALS: RESP 18; O2SAT 99
[2024-02-05 10:00] VITALS: BP 110/53; PULSE 75; RESP 20; TEMP 97.6; O2SAT 98
[2024-02-05 18:00] VITALS: BP 111/53; PULSE 75; RESP 16; TEMP 98.1; O2SAT 97
[2024-02-05 20:00] VITALS: RESP 16; O2SAT 97
[2024-02-05 22:00] VITALS: BP 101/57; PULSE 83; RESP 18; TEMP 98.4; O2SAT 94
[2024-02-06 06:00] VITALS: BP 113/54; PULSE 63; RESP 14; TEMP 97.9; O2SAT 99
[2024-02-06 08:00] VITALS: RESP 14; O2SAT 99
[2024-02-06 18:00] VITALS: BP 132/58; PULSE 89; RESP 16; TEMP 98.6; O2SAT 96
[2024-02-06 22:00] VITALS: BP 140/83; PULSE 76; RESP 16; TEMP 97.9; O2SAT 97
[2024-02-07 07:43] VITALS: BP 107/66; PULSE 68; RESP 20; TEMP 97.4; O2SAT 99
[2024-02-07 08:00] VITALS: RESP 16
[2024-02-07 12:41] VITALS: BP 101/65; PULSE 84; RESP 16; TEMP 97.7; O2SAT 100
[2024-02-07 18:00] VITALS: BP 107/63; PULSE 72; RESP 14; TEMP 98.3; O2SAT 96
[2024-02-07 20:00] VITALS: RESP 18
[2024-02-07 22:00] VITALS: BP 114/65; PULSE 81; RESP 18; TEMP 97.3; O2SAT 100
[2024-02-08 04:13] LABS: BASOPHILS % (AUTO) 0.6 % (0-1); EOSINOPHILS # (AUTO) 0.2 X10'3 (0-0.9); EOSINOPHILS % (AUTO) 3.7 % (0-6); HEMATOCRIT 40.1 % (35.0-45.0); HEMOGLOBIN 12.9 g/dl (12.0-16.0); LYMPHOCYTES # (AUTO) 1.7 X10'3 (1.1-4.8); LYMPHOCYTES % (AUTO) 25.8 % (21-51); MEAN CORPUSCULAR HEMOGLOBIN 26.7 PG (27.0-31.0); MEAN CORPUSCULAR HGB CONC 32.3 g/dL (33.0-36.5); MEAN CORPUSCULAR VOLUME 82.9 FL (78-98); MEAN PLATELET VOLUME 9.6 FL (7.4-10.4); MONOCYTES # (AUTO) 0.7 X10'3 (0-0.9); MONOCYTES % (AUTO) 9.9 % (2-12); PLATELET COUNT 210 X10'3 (140-440); RED BLOOD COUNT 4.84 X10'6 (4.20-5.60); RED CELL DISTRIBUTION WIDTH 15.8 % (11.5-14.5); WHITE BLOOD COUNT 6.6 X10'3 (4.5-11.0)
[2024-02-08 04:26] LABS: ALBUMIN 3.3 G/DL (3.4-5.0); ANION GAP 7 (8-16); BLOOD UREA NITROGEN 23 MG/DL (7-18); BUN/CREATININE RATIO 48.9 (10.0-20.0); CALCIUM 9.1 MG/DL (8.5-10.1); CHLORIDE 103 MMOL/L (99-107); CREATININE 0.47 MG/DL (0.40-0.90); GLUCOSE 95 MG/DL (70-104); POTASSIUM 3.9 MMOL/L (3.5-5.1); SODIUM 140 MMOL/L (135-145); eCRCL 118 ML/MIN; eGFR > 90 ML/MIN
[2024-02-08 06:00] VITALS: BP 99/54; PULSE 59; RESP 18; TEMP 97.9; O2SAT 96
[2024-02-08 10:00] VITALS: BP 114/63; PULSE 77; RESP 18; TEMP 97.7; O2SAT 99
[2024-02-08 18:00] VITALS: BP 122/54; PULSE 83; RESP 16; TEMP 97.4; O2SAT 99
[2024-02-08 22:00] VITALS: BP 96/52; PULSE 79; RESP 19; TEMP 97.7; O2SAT 100
[2024-02-09 06:00] VITALS: BP 97/54; PULSE 77; RESP 14; TEMP 97.8; O2SAT 99
[2024-02-09 08:00] VITALS: RESP 16
[2024-02-09 10:00] VITALS: BP 104/59; PULSE 75; RESP 17; TEMP 98.1; O2SAT 99
[2024-02-09 18:00] VITALS: BP 116/59; PULSE 87; RESP 14; TEMP 98.7; O2SAT 97
[2024-02-09] MEDS: normal saline 500ml IV soln 500 ML IV ONE (18:30)
[2024-02-09 22:00] VITALS: BP 102/55; PULSE 82; RESP 20; TEMP 97.7; O2SAT 99
[2024-02-10 06:00] VITALS: BP 103/57; PULSE 76; RESP 20; TEMP 97.8; O2SAT 97
[2024-02-10 08:00] VITALS: RESP 16
[2024-02-10 10:00] VITALS: BP 102/45; PULSE 97; RESP 18; TEMP 98.7; O2SAT 96
[2024-02-10 18:00] VITALS: BP 98/48; PULSE 68; RESP 18; TEMP 98.9; O2SAT 99
[2024-02-10 22:00] VITALS: BP 113/60; PULSE 83; RESP 16; TEMP 98; O2SAT 95
[2024-02-11 06:00] VITALS: BP 103/53; PULSE 76; RESP 14; TEMP 97.7; O2SAT 100
[2024-02-11 08:00] VITALS: RESP 16
[2024-02-11 11:00] VITALS: BP 99/45; PULSE 83; RESP 16; TEMP 97.9; O2SAT 97
[2024-02-11 18:00] VITALS: BP 108/66; PULSE 79; RESP 18; TEMP 98.2; O2SAT 97
[2024-02-11 20:00] VITALS: RESP 18; O2SAT 97
[2024-02-11 22:00] VITALS: BP 101/53; PULSE 86; RESP 18; TEMP 97.9; O2SAT 96
[2024-02-12 05:40] LABS: BASOPHILS % (AUTO) 0.5 % (0-1); EOSINOPHILS # (AUTO) 0.2 X10'3 (0-0.9); EOSINOPHILS % (AUTO) 3.1 % (0-6); HEMATOCRIT 39.5 % (35.0-45.0); HEMOGLOBIN 12.7 g/dl (12.0-16.0); LYMPHOCYTES # (AUTO) 1.8 X10'3 (1.1-4.8); LYMPHOCYTES % (AUTO) 21.9 % (21-51); MEAN CORPUSCULAR HEMOGLOBIN 26.8 PG (27.0-31.0); MEAN CORPUSCULAR HGB CONC 32.1 g/dL (33.0-36.5); MEAN CORPUSCULAR VOLUME 83.5 FL (78-98); MEAN PLATELET VOLUME 9.6 FL (7.4-10.4); MONOCYTES # (AUTO) 0.7 X10'3 (0-0.9); MONOCYTES % (AUTO) 8.5 % (2-12); NEUTROPHILS # (AUTO) 5.3 X10'3 (1.8-7.7); PLATELET COUNT 228 X10'3 (140-440); RED BLOOD COUNT 4.73 X10'6 (4.20-5.60); RED CELL DISTRIBUTION WIDTH 15.6 % (11.5-14.5)
[2024-02-12 05:56] LABS: ALBUMIN 3.1 G/DL (3.4-5.0); ANION GAP 6 (8-16); BLOOD UREA NITROGEN 21 MG/DL (7-18); BUN/CREATININE RATIO 55.3 (10.0-20.0); CHLORIDE 103 MMOL/L (99-107); CREATININE 0.38 MG/DL (0.40-0.90); GLUCOSE 101 MG/DL (70-104); POTASSIUM 3.7 MMOL/L (3.5-5.1); SODIUM 139 MMOL/L (135-145); TOTAL CARBON DIOXIDE 30.4 MMOL/L (24-32); eCRCL 138 ML/MIN; eGFR > 90 ML/MIN
[2024-02-12 06:00] VITALS: BP 102/59; PULSE 78; RESP 16; TEMP 97.8; O2SAT 96
[2024-02-12 06:33] VITALS: BP 101/53; PULSE 86; RESP 18; TEMP 97.9; O2SAT 96
[2024-02-12 08:00] VITALS: RESP 16
[2024-02-12 18:00] VITALS: BP 103/51; PULSE 59; RESP 15; TEMP 97.6; O2SAT 96
[2024-02-12 20:00] VITALS: RESP 15; O2SAT 96
[2024-02-12 22:00] VITALS: BP 99/61; PULSE 75; RESP 16; TEMP 98.5; O2SAT 99
[2024-02-13 06:42] VITALS: BP 116/56; PULSE 78; RESP 18; TEMP 98.8; O2SAT 98
[2024-02-13 08:00] VITALS: RESP 16
[2024-02-13 18:00] VITALS: BP 97/59; PULSE 58; RESP 16; TEMP 97.7; O2SAT 97
[2024-02-13 20:00] VITALS: RESP 16; O2SAT 97
[2024-02-13 22:00] VITALS: BP 115/67; PULSE 94; RESP 18; TEMP 98.8; O2SAT 100
[2024-02-14] VITALS (7 sets, daily range): BP systolic 89–111; BP diastolic 41–64; PULSE 71–89; RESP 12–20; TEMP 98.1–98.7; O2SAT 95–99
[2024-02-15 06:00] VITALS: BP 105/61; PULSE 84; RESP 14; TEMP 98; O2SAT 100
[2024-02-15 06:19] LABS: BASOPHILS % (AUTO) 0.3 % (0-1); EOSINOPHILS # (AUTO) 0.2 X10'3 (0-0.9); EOSINOPHILS % (AUTO) 1.5 % (0-6); HEMATOCRIT 39.1 % (35.0-45.0); HEMOGLOBIN 12.8 g/dl (12.0-16.0); LYMPHOCYTES # (AUTO) 1.6 X10'3 (1.1-4.8); LYMPHOCYTES % (AUTO) 15.6 % (21-51); MEAN CORPUSCULAR HEMOGLOBIN 27.3 PG (27.0-31.0); MEAN CORPUSCULAR HGB CONC 32.8 g/dL (33.0-36.5); MEAN CORPUSCULAR VOLUME 83.3 FL (78-98); MEAN PLATELET VOLUME 9.6 FL (7.4-10.4); MONOCYTES % (AUTO) 9.3 % (2-12); NEUTROPHILS # (AUTO) 7.7 X10'3 (1.8-7.7); NEUTROPHILS % (AUTO) 73.3 % (42-75); PLATELET COUNT 238 X10'3 (140-440); RED BLOOD COUNT 4.69 X10'6 (4.20-5.60); RED CELL DISTRIBUTION WIDTH 15.6 % (11.5-14.5); WHITE BLOOD COUNT 10.5 X10'3 (4.5-11.0)
[2024-02-15 06:37] LABS: ANION GAP 6 (8-16); BLOOD UREA NITROGEN 16 MG/DL (7-18); BUN/CREATININE RATIO 48.5 (10.0-20.0); CALCIUM 8.8 MG/DL (8.5-10.1); CHLORIDE 103 MMOL/L (99-107); CREATININE 0.33 MG/DL (0.40-0.90); GLUCOSE 100 MG/DL (70-104); POTASSIUM 3.7 MMOL/L (3.5-5.1); SODIUM 138 MMOL/L (135-145); TOTAL CARBON DIOXIDE 29.2 MMOL/L (24-32); eCRCL 174 ML/MIN; eGFR > 90 ML/MIN
[2024-02-15 08:00] VITALS: RESP 16
[2024-02-15 11:00] VITALS: BP 112/58; PULSE 89; RESP 18; TEMP 99; O2SAT 98
[2024-02-15 18:00] VITALS: BP 110/75; PULSE 83; RESP 17; TEMP 98.7; O2SAT 98
[2024-02-15 20:00] VITALS: RESP 17; O2SAT 98
[2024-02-15 22:00] VITALS: BP 118/62; PULSE 89; RESP 12; TEMP 98.6; O2SAT 96
[2024-02-16 06:00] VITALS: BP 105/60; PULSE 87; RESP 12; TEMP 97.7; O2SAT 99
[2024-02-16 08:00] VITALS: RESP 17; O2SAT 98
[2024-02-16 10:00] VITALS: BP 106/54; PULSE 83; RESP 20; TEMP 98.8; O2SAT 100
[2024-02-16 18:00] VITALS: BP 123/69; PULSE 83; RESP 14; TEMP 98.1; O2SAT 97
[2024-02-16 20:00] VITALS: RESP 14; O2SAT 97
[2024-02-16 22:00] VITALS: BP 115/65; PULSE 65; RESP 14; TEMP 97.5; O2SAT 97
[2024-02-17 06:00] VITALS: BP 124/65; PULSE 85; RESP 17; TEMP 98.4; O2SAT 95
[2024-02-17 08:00] VITALS: RESP 17; RESP 18; O2SAT 98; O2SAT 99
[2024-02-17 10:00] VITALS: BP 108/55; PULSE 76; RESP 17; TEMP 98.6; O2SAT 99
[2024-02-17 18:00] VITALS: BP 114/55; PULSE 68; RESP 18; TEMP 98.7; O2SAT 100
[2024-02-17 20:00] VITALS: RESP 18; O2SAT 100
[2024-02-17 22:00] VITALS: BP 101/65; PULSE 79; RESP 16; TEMP 98.6; O2SAT 98
[2024-02-18 05:48] LABS: BASOPHILS % (AUTO) 0.2 % (0-1); EOSINOPHILS # (AUTO) 0.2 X10'3 (0-0.9); EOSINOPHILS % (AUTO) 1.6 % (0-6); LYMPHOCYTES # (AUTO) 1.5 X10'3 (1.1-4.8); LYMPHOCYTES % (AUTO) 13.8 % (21-51); MEAN CORPUSCULAR HEMOGLOBIN 27.5 PG (27.0-31.0); MEAN CORPUSCULAR HGB CONC 32.6 g/dL (33.0-36.5); MEAN CORPUSCULAR VOLUME 84.4 FL (78-98); MEAN PLATELET VOLUME 9.6 FL (7.4-10.4); MONOCYTES # (AUTO) 0.9 X10'3 (0-0.9); MONOCYTES % (AUTO) 8.1 % (2-12); NEUTROPHILS # (AUTO) 8.1 X10'3 (1.8-7.7); NEUTROPHILS % (AUTO) 76.3 % (42-75); PLATELET COUNT 243 X10'3 (140-440); RED BLOOD COUNT 4.74 X10'6 (4.20-5.60); RED CELL DISTRIBUTION WIDTH 15.3 % (11.5-14.5); WHITE BLOOD COUNT 10.6 X10'3 (4.5-11.0)
[2024-02-18 05:49] LABS: ALBUMIN 3.2 G/DL (3.4-5.0); ANION GAP 7 (8-16); BLOOD UREA NITROGEN 18 MG/DL (7-18); CALCIUM 8.7 MG/DL (8.5-10.1); CHLORIDE 102 MMOL/L (99-107); CREATININE 0.45 MG/DL (0.40-0.90); GLUCOSE 122 MG/DL (70-104); POTASSIUM 3.4 MMOL/L (3.5-5.1); SODIUM 137 MMOL/L (135-145); TOTAL CARBON DIOXIDE 28.2 MMOL/L (24-32); eCRCL 133 ML/MIN; eGFR > 90 ML/MIN
[2024-02-18 06:00] VITALS: BP 103/66; PULSE 80; RESP 16; TEMP 98.5; O2SAT 98
[2024-02-18 09:00] VITALS: RESP 17; O2SAT 98
[2024-02-18 10:00] VITALS: BP 113/59; PULSE 78; RESP 18; TEMP 98.4; O2SAT 98
[2024-02-18] MEDS: POTASSIUM CHLORIDE 20 MEQ/15 ML oral solution PEG PRN (13:07)
[2024-02-18 19:00] VITALS: BP 149/79; PULSE 85; RESP 18; TEMP 97.8; O2SAT 99
[2024-02-18 20:00] VITALS: RESP 17; O2SAT 98
[2024-02-18 22:00] VITALS: BP 149/79; PULSE 85; RESP 18; TEMP 97.8; O2SAT 99
[2024-02-19 08:00] VITALS: RESP 16; O2SAT 94
[2024-02-19 16:00] VITALS: BP 129/80; PULSE 82; RESP 18; TEMP 97.1; O2SAT 92
[2024-02-20 06:00] VITALS: BP 104/59; PULSE 77; RESP 17; TEMP 97.8; O2SAT 100
[2024-02-20 08:00] VITALS: RESP 16; O2SAT 100
[2024-02-20 18:40] VITALS: BP 121/57; PULSE 78; RESP 12; TEMP 98.1; O2SAT 98
[2024-02-20] MEDS: chlorhexidine gluconate 15ml Cup****oral rinse MM SCH (20:33)
[2024-02-21 06:00] VITALS: BP 97/66; PULSE 84; RESP 16; TEMP 98.1; O2SAT 99
[2024-02-21 06:11] LABS: ALBUMIN 3.2 G/DL (3.4-5.0); ANION GAP 8 (8-16); BLOOD UREA NITROGEN 18 MG/DL (7-18); BUN/CREATININE RATIO 48.6 (10.0-20.0); CALCIUM 9.3 MG/DL (8.5-10.1); CHLORIDE 103 MMOL/L (99-107); CREATININE 0.37 MG/DL (0.40-0.90); GLUCOSE 111 MG/DL (70-104); POTASSIUM 3.5 MMOL/L (3.5-5.1); SODIUM 140 MMOL/L (135-145); TOTAL CARBON DIOXIDE 28.7 MMOL/L (24-32); eCRCL 158 ML/MIN; eGFR > 90 ML/MIN
[2024-02-21 08:00] VITALS: RESP 16; O2SAT 98
[2024-02-21 11:48] LABS: BASOPHILS % 0 % (0-2); EOSINOPHILS % (AUTO) 3 % (0-6); HEMATOCRIT 39.8 % (37.7-47.9); HEMOGLOBIN 13.5 G/DL (11.5-16.0); LYMPHOCYTES % 26 % (24-44); MEAN CORPUSCULAR HEMOGLOBIN 28.4 PG (27-31.2); MEAN CORPUSCULAR HGB CONC 33.9 % (32-36); MEAN CORPUSCULAR VOLUME 83.6 FL (81-97); MONOCYTES % 10 % (0-12); NEUTROPHILS # (AUTO) 4.2 X10'3 (1.8-7.7); PLATELET COUNT 218 X10'3 (130-400); RED BLOOD COUNT 4.76 X10'6 (3.60-4.90); RED CELL DISTRIBUTION WIDTH 15.1 % (11-16); SEGMENTED NEUTROPHILS % 61 % (36-66); WHITE BLOOD COUNT 6.9 X10'3 (4.5-11.0)
[2024-02-21 11:49] LABS: EOSINOPHILS # (AUTO) 0.2 X10'3 (0-0.9); LYMPHOCYTES # (AUTO) 1.8 X10'3 (1.1-4.8); MONOCYTES # (AUTO) 0.7 X10'3 (0-0.9)
[2024-02-21 18:50] VITALS: BP 129/71; PULSE 83; RESP 16; RESP 18; TEMP 98.2; O2SAT 98
[2024-02-22 06:00] VITALS: BP 129/79; PULSE 95; RESP 18; TEMP 98.7; O2SAT 96
[2024-02-22 18:00] VITALS: BP 115/49; PULSE 88; RESP 12; TEMP 99; O2SAT 98
[2024-02-22 20:00] VITALS: RESP 12; O2SAT 98
[2024-02-23 08:00] VITALS: BP 104/48; PULSE 79; RESP 12; TEMP 98.8; O2SAT 99
[2024-02-23 20:00] VITALS: RESP 14; O2SAT 94
[2024-02-24 03:36] VITALS: O2SAT 93
[2024-02-24 04:35] LABS: BASOPHILS % (AUTO) 0.4 % (0-1); EOSINOPHILS # (AUTO) 0.2 X10'3 (0-0.9); EOSINOPHILS % (AUTO) 2.7 % (0-6); HEMATOCRIT 40.3 % (35.0-45.0); HEMOGLOBIN 13.1 g/dl (12.0-16.0); LYMPHOCYTES # (AUTO) 2.3 X10'3 (1.1-4.8); LYMPHOCYTES % (AUTO) 25.6 % (21-51); MEAN CORPUSCULAR HEMOGLOBIN 27.2 PG (27.0-31.0); MEAN CORPUSCULAR HGB CONC 32.5 g/dL (33.0-36.5); MEAN CORPUSCULAR VOLUME 83.9 FL (78-98); MEAN PLATELET VOLUME 9.2 FL (7.4-10.4); MONOCYTES # (AUTO) 0.7 X10'3 (0-0.9); NEUTROPHILS # (AUTO) 5.7 X10'3 (1.8-7.7); NEUTROPHILS % (AUTO) 63.3 % (42-75); PLATELET COUNT 231 X10'3 (140-440); RED BLOOD COUNT 4.81 X10'6 (4.20-5.60); RED CELL DISTRIBUTION WIDTH 14.7 % (11.5-14.5)
[2024-02-24 04:41] LABS: ALBUMIN 3.1 G/DL (3.4-5.0); ANION GAP 4 (8-16); BLOOD UREA NITROGEN 22 MG/DL (7-18); BUN/CREATININE RATIO 53.7 (10.0-20.0); CALCIUM 9.3 MG/DL (8.5-10.1); CHLORIDE 105 MMOL/L (99-107); CREATININE 0.41 MG/DL (0.40-0.90); GLUCOSE 103 MG/DL (70-104); SODIUM 141 MMOL/L (135-145); TOTAL CARBON DIOXIDE 32.4 MMOL/L (24-32); eCRCL 145 ML/MIN; eGFR > 90 ML/MIN
[2024-02-24 08:00] VITALS: BP 108/61; PULSE 91; RESP 20; TEMP 97.6; O2SAT 99
[2024-02-24 20:00] VITALS: BP 118/71; PULSE 79; RESP 16; TEMP 98.5; O2SAT 96; O2SAT 98
[2024-02-25 06:46] VITALS: BP 98/58; PULSE 69; RESP 14; TEMP 98; O2SAT 98
[2024-02-25 19:00] VITALS: BP 103/54; PULSE 76; RESP 16; TEMP 98.1; O2SAT 100
[2024-02-25 20:00] VITALS: RESP 16; O2SAT 99
[2024-02-26 06:36] VITALS: BP 101/53; PULSE 70; RESP 20; TEMP 97.6; O2SAT 98
[2024-02-26 18:00] VITALS: BP 101/69; PULSE 55; RESP 17; TEMP 98.2; O2SAT 93
[2024-02-26 20:00] VITALS: RESP 17; O2SAT 55
[2024-02-27 06:32] VITALS: BP 91/50; PULSE 77; RESP 18; TEMP 98.6; O2SAT 93
[2024-02-27 07:06] LABS: BASOPHILS % (AUTO) 0.5 % (0-1); EOSINOPHILS # (AUTO) 0.3 X10'3 (0-0.9); EOSINOPHILS % (AUTO) 4.9 % (0-6); HEMATOCRIT 39.6 % (35.0-45.0); HEMOGLOBIN 12.8 g/dl (12.0-16.0); LYMPHOCYTES # (AUTO) 1.5 X10'3 (1.1-4.8); LYMPHOCYTES % (AUTO) 28.6 % (21-51); MEAN CORPUSCULAR HEMOGLOBIN 26.9 PG (27.0-31.0); MEAN CORPUSCULAR HGB CONC 32.3 g/dL (33.0-36.5); MEAN CORPUSCULAR VOLUME 83.3 FL (78-98); MEAN PLATELET VOLUME 9.1 FL (7.4-10.4); MONOCYTES # (AUTO) 0.5 X10'3 (0-0.9); MONOCYTES % (AUTO) 9.1 % (2-12); NEUTROPHILS % (AUTO) 56.9 % (42-75); PLATELET COUNT 228 X10'3 (140-440); RED BLOOD COUNT 4.75 X10'6 (4.20-5.60); RED CELL DISTRIBUTION WIDTH 14.8 % (11.5-14.5); WHITE BLOOD COUNT 5.3 X10'3 (4.5-11.0)
[2024-02-27 07:17] LABS: ALBUMIN 3.1 G/DL (3.4-5.0); ANION GAP 6 (8-16); BLOOD UREA NITROGEN 17 MG/DL (7-18); BUN/CREATININE RATIO 47.2 (10.0-20.0); CALCIUM 8.8 MG/DL (8.5-10.1); CHLORIDE 104 MMOL/L (99-107); CREATININE 0.36 MG/DL (0.40-0.90); GLUCOSE 96 MG/DL (70-104); POTASSIUM 3.7 MMOL/L (3.5-5.1); SODIUM 140 MMOL/L (135-145); TOTAL CARBON DIOXIDE 29.8 MMOL/L (24-32); eCRCL 171 ML/MIN; eGFR > 90 ML/MIN
[2024-02-27 07:32] VITALS: RESP 18; O2SAT 93
[2024-02-27 19:00] VITALS: BP 126/68; PULSE 84; RESP 18; TEMP 97.8; O2SAT 96
[2024-02-27 20:00] VITALS: RESP 18; O2SAT 96
[2024-02-28 06:00] VITALS: BP 104/50; PULSE 73; RESP 18; TEMP 98.6; O2SAT 96
[2024-02-28 08:00] VITALS: RESP 16; O2SAT 97
[2024-02-28] MEDS: BETAMETHASONE DIPROPIONATE 0.05% TP SCH (08:00)
[2024-02-28 19:00] VITALS: BP 136/67; PULSE 77; RESP 16; TEMP 98.3; O2SAT 98
[2024-02-28 19:10] VITALS: RESP 16; O2SAT 98
[2024-02-29 06:46] VITALS: BP 96/42; PULSE 71; RESP 12; TEMP 97.3; O2SAT 98
[2024-02-29 07:59] VITALS: RESP 12; O2SAT 98
[2024-02-29 18:00] VITALS: BP 97/59; PULSE 77; RESP 18; TEMP 97.8; O2SAT 98
[2024-02-29 20:20] VITALS: RESP 16
[2024-03-01 04:25] LABS: BASOPHILS % (AUTO) 0.3 % (0-1); EOSINOPHILS # (AUTO) 0.3 X10'3 (0-0.9); EOSINOPHILS % (AUTO) 5.6 % (0-6); HEMATOCRIT 41.5 % (35.0-45.0); HEMOGLOBIN 13.3 g/dl (12.0-16.0); LYMPHOCYTES # (AUTO) 1.5 X10'3 (1.1-4.8); LYMPHOCYTES % (AUTO) 24.3 % (21-51); MEAN CORPUSCULAR HEMOGLOBIN 26.7 PG (27.0-31.0); MEAN CORPUSCULAR VOLUME 83.7 FL (78-98); MEAN PLATELET VOLUME 9.3 FL (7.4-10.4); MONOCYTES # (AUTO) 0.6 X10'3 (0-0.9); MONOCYTES % (AUTO) 9.2 % (2-12); NEUTROPHILS # (AUTO) 3.7 X10'3 (1.8-7.7); NEUTROPHILS % (AUTO) 60.6 % (42-75); PLATELET COUNT 220 X10'3 (140-440); RED BLOOD COUNT 4.97 X10'6 (4.20-5.60); RED CELL DISTRIBUTION WIDTH 14.8 % (11.5-14.5); WHITE BLOOD COUNT 6.1 X10'3 (4.5-11.0)
[2024-03-01 04:34] LABS: ALBUMIN 3.2 G/DL (3.4-5.0); ANION GAP 5 (8-16); BLOOD UREA NITROGEN 18 MG/DL (7-18); BUN/CREATININE RATIO 47.4 (10.0-20.0); CHLORIDE 105 MMOL/L (99-107); CREATININE 0.38 MG/DL (0.40-0.90); GLUCOSE 118 MG/DL (70-104); POTASSIUM 3.8 MMOL/L (3.5-5.1); SODIUM 139 MMOL/L (135-145); eCRCL 169 ML/MIN; eGFR > 90 ML/MIN
[2024-03-01 07:00] VITALS: BP 147/92; PULSE 68; RESP 18; TEMP 97.8; O2SAT 94
[2024-03-01 08:30] VITALS: RESP 16
[2024-03-01 19:00] VITALS: BP 118/72; PULSE 71; RESP 18; TEMP 97.9; O2SAT 95
[2024-03-01 20:00] VITALS: RESP 16
[2024-03-02 06:00] VITALS: BP 104/54; PULSE 66; RESP 16; TEMP 98.3; O2SAT 100
[2024-03-02 08:30] VITALS: RESP 16
[2024-03-02 09:56] VITALS: RESP 16; O2SAT 100
[2024-03-02 19:00] VITALS: BP 120/69; PULSE 76; RESP 16; TEMP 99.2; O2SAT 97
[2024-03-02 20:00] VITALS: RESP 16; O2SAT 97
[2024-03-03] VITALS (7 sets, daily range): BP systolic 116–134; BP diastolic 71–76; PULSE 80–89; RESP 14–16; TEMP 99; O2SAT 95–100
[2024-03-03] MEDS: albuterol 2.5 MG/3 ML nebule NEB ONE (23:06)
[2024-03-04 06:00] VITALS: BP 120/74; PULSE 96; RESP 16; TEMP 98.5; O2SAT 98
[2024-03-04 06:47] LABS: BASOPHILS % (AUTO) 0.3 % (0-1); EOSINOPHILS # (AUTO) 0.1 X10'3 (0-0.9); HEMATOCRIT 42.4 % (35.0-45.0); HEMOGLOBIN 13.9 g/dl (12.0-16.0); LYMPHOCYTES # (AUTO) 2.5 X10'3 (1.1-4.8); LYMPHOCYTES % (AUTO) 22.4 % (21-51); MEAN CORPUSCULAR HEMOGLOBIN 27.4 PG (27.0-31.0); MEAN CORPUSCULAR HGB CONC 32.7 g/dL (33.0-36.5); MEAN CORPUSCULAR VOLUME 83.9 FL (78-98); MEAN PLATELET VOLUME 9.6 FL (7.4-10.4); MONOCYTES # (AUTO) 0.9 X10'3 (0-0.9); MONOCYTES % (AUTO) 8.2 % (2-12); NEUTROPHILS # (AUTO) 7.5 X10'3 (1.8-7.7); NEUTROPHILS % (AUTO) 68.1 % (42-75); PLATELET COUNT 241 X10'3 (140-440); RED BLOOD COUNT 5.05 X10'6 (4.20-5.60); RED CELL DISTRIBUTION WIDTH 14.6 % (11.5-14.5)
[2024-03-04 06:58] LABS: ALBUMIN 3.2 G/DL (3.4-5.0); ANION GAP 9 (8-16); BLOOD UREA NITROGEN 19 MG/DL (7-18); BUN/CREATININE RATIO 47.5 (10.0-20.0); CALCIUM 9.1 MG/DL (8.5-10.1); CHLORIDE 104 MMOL/L (99-107); GLUCOSE 114 MG/DL (70-104); POTASSIUM 3.5 MMOL/L (3.5-5.1); SODIUM 141 MMOL/L (135-145); TOTAL CARBON DIOXIDE 28.5 MMOL/L (24-32); eCRCL 161 ML/MIN; eGFR > 90 ML/MIN
[2024-03-04 08:00] VITALS: RESP 16; O2SAT 98
[2024-03-04 19:00] VITALS: BP 151/55; PULSE 94; RESP 16; TEMP 98.4; O2SAT 98
[2024-03-04 20:00] VITALS: RESP 17; O2SAT 98
[2024-03-05 07:15] VITALS: BP 114/59; PULSE 91; RESP 12; TEMP 97.8; O2SAT 98
[2024-03-05 09:00] VITALS: RESP 16
[2024-03-05 18:30] VITALS: BP 119/66; PULSE 93; RESP 14; TEMP 98.6; O2SAT 92
[2024-03-05 20:00] VITALS: RESP 14; O2SAT 92
[2024-03-06 06:00] VITALS: BP 105/75; PULSE 98; RESP 18; TEMP 98.6; O2SAT 96
[2024-03-06 18:00] VITALS: BP 131/81; PULSE 79; RESP 17; TEMP 98.2; O2SAT 96
[2024-03-06 20:00] VITALS: RESP 17; O2SAT 97
[2024-03-06 22:00] VITALS: BP 156/92; PULSE 62; RESP 23; TEMP 97.2; O2SAT 98
[2024-03-07 04:16] LABS: BASOPHILS % (AUTO) 0.4 % (0-1); EOSINOPHILS % (AUTO) 0.5 % (0-6); HEMATOCRIT 39.5 % (35.0-45.0); LYMPHOCYTES # (AUTO) 1.6 X10'3 (1.1-4.8); LYMPHOCYTES % (AUTO) 15.8 % (21-51); MEAN CORPUSCULAR HEMOGLOBIN 27.3 PG (27.0-31.0); MEAN CORPUSCULAR HGB CONC 32.9 g/dL (33.0-36.5); MEAN CORPUSCULAR VOLUME 82.9 FL (78-98); MEAN PLATELET VOLUME 9.2 FL (7.4-10.4); MONOCYTES # (AUTO) 0.7 X10'3 (0-0.9); MONOCYTES % (AUTO) 6.6 % (2-12); NEUTROPHILS % (AUTO) 76.7 % (42-75); PLATELET COUNT 257 X10'3 (140-440); RED BLOOD COUNT 4.77 X10'6 (4.20-5.60); WHITE BLOOD COUNT 10.4 X10'3 (4.5-11.0)
[2024-03-07 04:28] LABS: ALBUMIN 3.1 G/DL (3.4-5.0); ANION GAP 8 (8-16); BLOOD UREA NITROGEN 18 MG/DL (7-18); BUN/CREATININE RATIO 47.4 (10.0-20.0); CALCIUM 8.8 MG/DL (8.5-10.1); CHLORIDE 104 MMOL/L (99-107); CREATININE 0.38 MG/DL (0.40-0.90); GLUCOSE 120 MG/DL (70-104); POTASSIUM 3.6 MMOL/L (3.5-5.1); SODIUM 141 MMOL/L (135-145); TOTAL CARBON DIOXIDE 29.1 MMOL/L (24-32); eCRCL 172 ML/MIN; eGFR > 90 ML/MIN
[2024-03-07 06:51] VITALS: BP 109/69; PULSE 78; RESP 14; TEMP 98; O2SAT 99
[2024-03-07] MEDS ORDERED: albuterol 2.5 MG/3 ML nebule NEB PRN (17:55)
[2024-03-07 18:00] VITALS: BP 122/66; PULSE 80; RESP 16; TEMP 98.3; O2SAT 98
[2024-03-07 20:40] VITALS: RESP 16
[2024-03-07 20:44] VITALS: PULSE 71; RESP 16; O2SAT 98
[2024-03-07 22:00] VITALS: BP 109/71; PULSE 80; RESP 12; TEMP 97.9; O2SAT 97
[2024-03-08] VITALS (7 sets, daily range): BP systolic 120–121; BP diastolic 62–67; PULSE 71–94; RESP 16–22; TEMP 97.9–98.7; O2SAT 96–98
[2024-03-09 06:44] VITALS: BP 103/66; PULSE 82; RESP 18; TEMP 97.8; O2SAT 97
[2024-03-09 08:00] VITALS: RESP 18; O2SAT 7
[2024-03-09] MEDS: enoxaparin 40mg/0.4ml syringe SUBCUT SCH (08:03)
[2024-03-09 09:07] VITALS: PULSE 82; RESP 18; O2SAT 98
[2024-03-09] MEDS: BETAMETHASONE DIPROPIONATE 0.05% TP PRN (16:03)
[2024-03-09 18:00] VITALS: BP 119/72; PULSE 88; RESP 17; TEMP 98.6; O2SAT 94
[2024-03-09 20:00] VITALS: RESP 17; O2SAT 94
[2024-03-10 04:27] LABS: BASOPHILS % (AUTO) 0.5 % (0-1); EOSINOPHILS # (AUTO) 0.2 X10'3 (0-0.9); EOSINOPHILS % (AUTO) 2.2 % (0-6); HEMATOCRIT 39.8 % (35.0-45.0); HEMOGLOBIN 13.1 g/dl (12.0-16.0); LYMPHOCYTES # (AUTO) 1.8 X10'3 (1.1-4.8); LYMPHOCYTES % (AUTO) 18.7 % (21-51); MEAN CORPUSCULAR HEMOGLOBIN 27.1 PG (27.0-31.0); MEAN CORPUSCULAR HGB CONC 32.9 g/dL (33.0-36.5); MEAN CORPUSCULAR VOLUME 82.2 FL (78-98); MONOCYTES # (AUTO) 0.6 X10'3 (0-0.9); MONOCYTES % (AUTO) 5.9 % (2-12); NEUTROPHILS # (AUTO) 7.1 X10'3 (1.8-7.7); NEUTROPHILS % (AUTO) 72.7 % (42-75); PLATELET COUNT 250 X10'3 (140-440); RED BLOOD COUNT 4.84 X10'6 (4.20-5.60); RED CELL DISTRIBUTION WIDTH 14.1 % (11.5-14.5); WHITE BLOOD COUNT 9.7 X10'3 (4.5-11.0)
[2024-03-10 04:32] LABS: ALBUMIN 3.2 G/DL (3.4-5.0); ANION GAP 7 (8-16); BLOOD UREA NITROGEN 14 MG/DL (7-18); CALCIUM 9.4 MG/DL (8.5-10.1); CHLORIDE 104 MMOL/L (99-107); CREATININE 0.35 MG/DL (0.40-0.90); GLUCOSE 96 MG/DL (70-104); SODIUM 143 MMOL/L (135-145); TOTAL CARBON DIOXIDE 31.6 MMOL/L (24-32); eCRCL 167 ML/MIN; eGFR > 90 ML/MIN
[2024-03-10 06:00] VITALS: BP 114/74; PULSE 72; RESP 15; TEMP 98.2; O2SAT 97
[2024-03-10 09:15] VITALS: RESP 18; O2SAT 7; O2SAT 97
[2024-03-10 18:00] VITALS: BP 119/72; PULSE 91; RESP 18; TEMP 97.7; O2SAT 95
[2024-03-10 20:00] VITALS: RESP 18; O2SAT 95
[2024-03-11 07:00] VITALS: RESP 18; O2SAT 97
[2024-03-11 07:15] VITALS: BP 100/69; PULSE 86; RESP 20; TEMP 98.8; O2SAT 97
[2024-03-11 19:00] VITALS: BP 95/60; PULSE 56; RESP 18; TEMP 97.8; O2SAT 92
[2024-03-11 20:00] VITALS: RESP 18; O2SAT 92
[2024-03-12 08:00] VITALS: RESP 16; O2SAT 99
[2024-03-12 10:34] VITALS: BP 111/57; PULSE 79; RESP 20; TEMP 97.8; O2SAT 99
[2024-03-12 18:00] VITALS: BP 118/57; PULSE 88; RESP 17; TEMP 98.5; O2SAT 98
[2024-03-12 18:49] VITALS: BP 118/57; PULSE 88; RESP 17; TEMP 98.5; O2SAT 98
[2024-03-12 20:00] VITALS: RESP 16; O2SAT 99
[2024-03-13 05:06] VITALS: O2SAT 98
[2024-03-13 07:00] VITALS: BP 104/56; PULSE 96; RESP 16; TEMP 98.5; O2SAT 96
[2024-03-13 07:09] VITALS: RESP 18
[2024-03-13 12:36] VITALS: RESP 16; O2SAT 96
[2024-03-13 19:00] VITALS: BP 138/88; PULSE 99; RESP 14; TEMP 97.8; O2SAT 96
[2024-03-13 20:00] VITALS: RESP 16; O2SAT 96
[2024-03-14 08:00] VITALS: RESP 18; O2SAT 97
[2024-03-14 12:53] VITALS: BP 119/71; PULSE 89; RESP 18; TEMP 98.3; O2SAT 97
[2024-03-14 19:00] VITALS: BP 106/68; PULSE 85; RESP 18; TEMP 98.5; O2SAT 96
[2024-03-14 20:00] VITALS: RESP 18; O2SAT 96
[2024-03-14 22:00] VITALS: BP 107/70; PULSE 78; RESP 13; TEMP 98.1; O2SAT 98
[2024-03-15 08:00] VITALS: RESP 20; O2SAT 97
[2024-03-15 11:00] VITALS: BP 113/64; PULSE 106; RESP 20; TEMP 97.6; O2SAT 97
[2024-03-15 18:00] VITALS: BP 112/80; PULSE 105; RESP 18; TEMP 98.5; O2SAT 96
[2024-03-15 20:00] VITALS: RESP 18; O2SAT 96
[2024-03-16 07:00] VITALS: BP 103/72; PULSE 69; RESP 18; TEMP 98.7; O2SAT 98
[2024-03-16 08:00] VITALS: RESP 16
[2024-03-16 18:00] VITALS: BP 124/64; PULSE 74; RESP 18; TEMP 98.1; O2SAT 96
[2024-03-16 19:00] VITALS: BP 124/64; PULSE 74; RESP 18; TEMP 98.1; O2SAT 96
[2024-03-16 20:00] VITALS: RESP 18; O2SAT 96
[2024-03-17 07:17] VITALS: BP 120/73; PULSE 88; RESP 16; TEMP 98; O2SAT 97
[2024-03-17 19:00] VITALS: BP 117/60; PULSE 91; RESP 16; TEMP 99; O2SAT 97
[2024-03-17 20:00] VITALS: RESP 16; O2SAT 96
[2024-03-18 07:05] VITALS: BP 98/59; PULSE 70; RESP 20; TEMP 97.9; O2SAT 99
[2024-03-18 08:00] VITALS: RESP 16
[2024-03-18 19:00] VITALS: BP 126/76; PULSE 74; RESP 20; TEMP 98.8; O2SAT 99
[2024-03-18 20:00] VITALS: RESP 16; O2SAT 96
[2024-03-19 07:01] VITALS: BP 112/70; PULSE 80; RESP 20; TEMP 97; O2SAT 96
[2024-03-19 08:00] VITALS: RESP 20; O2SAT 96
[2024-03-19 19:00] VITALS: BP 116/72; PULSE 89; RESP 13; TEMP 98.3; O2SAT 98
[2024-03-19] MEDS: scopolamine 1MG/72H patch 1 PATCH PATCH.TD.3 TD SCH (21:53)
[2024-03-20 06:00] VITALS: BP 103/78; PULSE 75; RESP 16; TEMP 97.5; O2SAT 100
[2024-03-20 09:20] VITALS: RESP 16; O2SAT 100
[2024-03-20 19:00] VITALS: BP 120/74; PULSE 88; RESP 18; TEMP 97.5; O2SAT 98
[2024-03-21 06:00] VITALS: BP 103/67; PULSE 79; RESP 18; TEMP 97.3; O2SAT 96
[2024-03-21 08:00] VITALS: RESP 18; O2SAT 96
[2024-03-21 19:00] VITALS: BP 118/81; PULSE 72; RESP 18; TEMP 98; O2SAT 99
[2024-03-21 20:00] VITALS: RESP 16
[2024-03-21] MEDS ORDERED: levetiracetam inj 1,500 MG in normal saline 100ml IV soln 100 ML IV SCH (20:00)
[2024-03-21] MEDS ORDERED: levetiracetam 250mg tablet PO SCH (20:00)
[2024-03-21] MEDS: levetiracetam 100mg/ml oral solution 5ml UD cup PEG SCH (21:13)
[2024-03-22 07:00] VITALS: BP 106/68; PULSE 85; RESP 16; TEMP 98; O2SAT 93
[2024-03-22 08:00] VITALS: RESP 16; O2SAT 93
[2024-03-22 19:00] VITALS: BP 128/72; PULSE 76; RESP 18; TEMP 97.7; O2SAT 97
[2024-03-22 20:40] VITALS: RESP 18
[2024-03-23 06:00] VITALS: BP 117/41; PULSE 96; RESP 15; TEMP 97.3; O2SAT 97
[2024-03-23 19:00] VITALS: BP 110/66; PULSE 77; RESP 18; TEMP 98.6; O2SAT 98
[2024-03-23 20:00] VITALS: RESP 18; O2SAT 98
[2024-03-24 07:13] VITALS: BP 108/61; PULSE 89; RESP 16; TEMP 98.6; O2SAT 98
[2024-03-24 08:00] VITALS: RESP 16; O2SAT 98
[2024-03-24 10:00] VITALS: BP 118/80; PULSE 95; RESP 20; TEMP 97.9; O2SAT 97
[2024-03-24 10:41] VITALS: BP 118/80; PULSE 95; RESP 20; TEMP 97.9; O2SAT 97
[2024-03-24 18:00] VITALS: BP 109/73; PULSE 82; RESP 20; TEMP 98.3; O2SAT 98
[2024-03-24 20:00] VITALS: RESP 20; O2SAT 98
[2024-03-25 06:00] VITALS: BP 124/67; PULSE 70; RESP 18; TEMP 97.7; O2SAT 98
[2024-03-25 08:46] VITALS: RESP 18; O2SAT 97
[2024-03-25 18:00] VITALS: BP 121/82; PULSE 88; RESP 16; TEMP 98.2; O2SAT 98
[2024-03-25 20:00] VITALS: RESP 16; O2SAT 98
[2024-03-26 06:00] VITALS: BP 119/77; PULSE 80; RESP 16; TEMP 98.1; O2SAT 99
[2024-03-26 10:40] VITALS: RESP 16; O2SAT 98
[2024-03-26 18:50] VITALS: BP 114/70; PULSE 92; RESP 14; RESP 16; TEMP 99; O2SAT 99
[2024-03-26 22:00] VITALS: BP 128/83; PULSE 85; RESP 14; TEMP 97.3; O2SAT 97
[2024-03-27 11:27] VITALS: BP 110/66; PULSE 80; RESP 16; TEMP 98.1; O2SAT 98
[2024-03-27 12:39] LABS: BASOPHILS % (AUTO) 0.5 % (0-1); EOSINOPHILS # (AUTO) 0.1 X10'3 (0-0.9); EOSINOPHILS % (AUTO) 1.4 % (0-6); HEMATOCRIT 44.4 % (35.0-45.0); HEMOGLOBIN 14.3 g/dl (12.0-16.0); LYMPHOCYTES # (AUTO) 1.6 X10'3 (1.1-4.8); LYMPHOCYTES % (AUTO) 17.7 % (21-51); MEAN CORPUSCULAR HEMOGLOBIN 26.8 PG (27.0-31.0); MEAN CORPUSCULAR HGB CONC 32.3 g/dL (33.0-36.5); MEAN CORPUSCULAR VOLUME 82.8 FL (78-98); MEAN PLATELET VOLUME 9.5 FL (7.4-10.4); MONOCYTES # (AUTO) 0.6 X10'3 (0-0.9); MONOCYTES % (AUTO) 6.5 % (2-12); NEUTROPHILS # (AUTO) 6.6 X10'3 (1.8-7.7); NEUTROPHILS % (AUTO) 73.9 % (42-75); PLATELET COUNT 237 X10'3 (140-440); RED BLOOD COUNT 5.36 X10'6 (4.20-5.60); RED CELL DISTRIBUTION WIDTH 13.4 % (11.5-14.5); WHITE BLOOD COUNT 8.9 X10'3 (4.5-11.0)
[2024-03-27 12:43] LABS: ALBUMIN 3.2 G/DL (3.4-5.0); ALBUMIN/GLOBULIN RATIO 0.8 (1.1-1.5); ALKALINE PHOSPHATASE 110 IU/L (46-116); ANION GAP 8 (8-16); ASPARTATE AMINO TRANSFERASE 30 U/L (10-37); BILIRUBIN,TOTAL 0.3 MG/DL (0.1-1.0); BLOOD UREA NITROGEN 10 MG/DL (7-18); BUN/CREATININE RATIO 23.8 (10.0-20.0); CHLORIDE 105 MMOL/L (99-107); CREATININE 0.42 MG/DL (0.40-0.90); GLUCOSE 121 MG/DL (70-104); POTASSIUM 3.7 MMOL/L (3.5-5.1); SODIUM 143 MMOL/L (135-145); TOTAL CARBON DIOXIDE 29.8 MMOL/L (24-32); TOTAL PROTEIN 7.4 G/DL (6.4-8.2); eCRCL 148 ML/MIN; eGFR > 90 ML/MIN
[2024-03-27 13:04] LABS: ALANINE AMINOTRANSFERASE < 6 U/L (12-78)
[2024-03-27 14:53] LABS: APPEARANCE,CSF CLEAR; CSF RBC 125 /CU MM (0); CSF RBC 815 /CU MM (0); CSF SUPERNATANT COLOR COLORLESS; CSF VOLUME 10 ML; CSF WBC CT 1 /CU MM (0-5); CSF WBC CT 2 /CU MM (0-5); TUBE# COUNTED 1; TUBE# COUNTED 4
[2024-03-27 14:59] LABS: GLUCOSE,CSF 73 MG/DL (40-75); TOTAL PROTEIN,CSF 81 MG/DL (15-45)
[2024-03-27 18:00] VITALS: BP 107/76; PULSE 110; RESP 13; TEMP 99.6; O2SAT 97
[2024-03-27] MEDS ORDERED: GADOTERATE MEGLUMINE 7.5 MMOL/15 ML VIAL IV ONE (18:09)
[2024-03-27 20:30] VITALS: RESP 16
[2024-03-27] MEDS: levetiracetam 100mg/ml oral solution 5ml UD cup PEG SCH (21:01)
[2024-03-27 22:00] VITALS: BP 110/93; PULSE 115; RESP 16; TEMP 98.2; O2SAT 93
[2024-03-28 10:00] VITALS: BP 139/68; PULSE 99; RESP 18; TEMP 98.9; O2SAT 98
[2024-03-28 19:00] VITALS: BP 120/74; PULSE 87; RESP 14; TEMP 98.3; O2SAT 97
[2024-03-28 20:30] VITALS: RESP 16
[2024-03-28 22:00] VITALS: BP 119/76; PULSE 81; RESP 12; TEMP 96.8; O2SAT 99
[2024-03-29 11:00] VITALS: BP 125/75; PULSE 78; RESP 17; TEMP 98.6; O2SAT 91
[2024-03-29 19:00] VITALS: BP 125/77; PULSE 93; RESP 16; TEMP 99.2; O2SAT 95
[2024-03-29 20:00] VITALS: RESP 16; O2SAT 95
[2024-03-30 07:00] VITALS: BP 112/71; PULSE 81; RESP 16; TEMP 98.4; O2SAT 97
[2024-03-30 07:55] VITALS: RESP 14; O2SAT 96
[2024-03-30 20:00] VITALS: RESP 16; O2SAT 98
[2024-03-30 23:00] VITALS: BP 133/88; PULSE 98; RESP 16; TEMP 98.4; O2SAT 96
[2024-03-31 07:45] VITALS: RESP 14; O2SAT 96
[2024-03-31 10:00] VITALS: BP 128/90; PULSE 95; RESP 16; TEMP 98.9; O2SAT 97
[2024-03-31 18:39] LABS: CRYPTOCOCCUS AG TITER, CSF Not Indicated (.); CRYPTOCOCCUS ANTIGEN, CSF Negative (Negative)
[2024-03-31 19:00] VITALS: BP 122/72; PULSE 104; RESP 20; TEMP 98.9; O2SAT 97
[2024-03-31 20:00] VITALS: RESP 20; O2SAT 97
[2024-04-01 05:18] LABS: HSV 1 PCR Negative (Negative); HSV 2 PCR Negative (Negative)
[2024-04-01 08:00] VITALS: RESP 20
[2024-04-01 18:00] VITALS: BP 147/72; PULSE 111; RESP 20; TEMP 100.5; O2SAT 94
[2024-04-01 20:00] VITALS: RESP 20; O2SAT 94
[2024-04-01 21:11] VITALS: TEMP 99.7
[2024-04-01 22:45] VITALS: PULSE 104; RESP 18; TEMP 100.5; O2SAT 100
[2024-04-02] MEDS: acetaminophen 1,000mg/100ml IV 100 ML IV ONE (01:24)
[2024-04-02] MEDS: normal saline 1000ml 1,000 ML IV ONE (01:24)
[2024-04-02 01:44] LABS: BILIRUBIN,URINE NEGATIVE (Neg); CLARITY,URINE SLIGHTLY CLOUDY (Clear); COLOR,URINE AMBER (Yellow); GLUCOSE, URINE NEGATIVE (Neg); KETONES,URINE NEGATIVE (Neg); LEUKOCYTE ESTERASE ,URINE NEGATIVE (Neg); NITRITES, URINE NEGATIVE (Neg); OCCULT BLOOD,URINE NEGATIVE (Neg); PH,URINE 6.5 (4.8-8.0); PROTEIN,URINE NEGATIVE (Neg); UROBILINOGEN,URINE 0.2 E.U/dL (0.2-1.0)
[2024-04-02 02:15] LABS: BACTERIA,URINE FEW /HPF (Neg); MUCUS STRANDS FEW /LPF (Neg); SQUAMOUS EPITHELIAL CELL,UR FEW /LPF (FEW); UA COLLECTION TYPE STRAIGHT CATH; WBC,URINE 0-4 /HPF (0-4)
[2024-04-02 02:16] LABS: AMORPHOUS URATES 1+
[2024-04-02 06:10] LABS: ALANINE AMINOTRANSFERASE 7 U/L (12-78); ALBUMIN 2.6 G/DL (3.4-5.0); ALBUMIN/GLOBULIN RATIO 0.6 (1.1-1.5); ALKALINE PHOSPHATASE 104 IU/L (46-116); ANION GAP 7 (8-16); ASPARTATE AMINO TRANSFERASE 38 U/L (10-37); BILIRUBIN,TOTAL 0.4 MG/DL (0.1-1.0); BLOOD UREA NITROGEN 9 MG/DL (7-18); BUN/CREATININE RATIO 20.9 (10.0-20.0); CALCIUM 8.8 MG/DL (8.5-10.1); CHLORIDE 106 MMOL/L (99-107); CREATININE 0.43 MG/DL (0.40-0.90); GLUCOSE 126 MG/DL (70-104); POTASSIUM 3.5 MMOL/L (3.5-5.1); SODIUM 143 MMOL/L (135-145); TOTAL PROTEIN 6.8 G/DL (6.4-8.2); eCRCL 153 ML/MIN; eGFR > 90 ML/MIN
[2024-04-02 06:12] LABS: BASOPHILS % (AUTO) 0.3 % (0-1); EOSINOPHILS # (AUTO) 0.1 X10'3 (0-0.9); HEMATOCRIT 41.6 % (35.0-45.0); HEMOGLOBIN 13.6 g/dl (12.0-16.0); LYMPHOCYTES % (AUTO) 19.6 % (21-51); MEAN CORPUSCULAR HEMOGLOBIN 26.8 PG (27.0-31.0); MEAN CORPUSCULAR HGB CONC 32.6 g/dL (33.0-36.5); MEAN CORPUSCULAR VOLUME 82.2 FL (78-98); MEAN PLATELET VOLUME 9.4 FL (7.4-10.4); MONOCYTES # (AUTO) 0.9 X10'3 (0-0.9); MONOCYTES % (AUTO) 8.9 % (2-12); NEUTROPHILS # (AUTO) 7.2 X10'3 (1.8-7.7); NEUTROPHILS % (AUTO) 70.2 % (42-75); PLATELET COUNT 221 X10'3 (140-440); RED BLOOD COUNT 5.06 X10'6 (4.20-5.60); RED CELL DISTRIBUTION WIDTH 13.1 % (11.5-14.5); WHITE BLOOD COUNT 10.3 X10'3 (4.5-11.0)
[2024-04-02 08:00] VITALS: RESP 16; RESP 20
[2024-04-02] MEDS: triamcinolone acet 0.1% cream 15gm TP SCH (09:41)
[2024-04-02 15:47] VITALS: BP 113/68; PULSE 97; RESP 20; TEMP 97.1; O2SAT 98
[2024-04-02 20:00] VITALS: RESP 14; O2SAT 96
[2024-04-03 02:00] VITALS: BP 116/81; PULSE 112; RESP 14; TEMP 98.8; O2SAT 96
[2024-04-03 07:33] VITALS: BP 129/72; PULSE 99; RESP 20; TEMP 99.3; O2SAT 95
[2024-04-03 08:00] VITALS: RESP 18
[2024-04-03 11:11] LABS: CSF WEST NILE VIRUS, IGG Negative (Negative); CSF WEST NILE VIRUS, IGM Negative (Negative)
[2024-04-03 13:13] LABS: VDRL, CSF Non Reactive (Non Rea:<1:1)
[2024-04-03 18:00] VITALS: BP 139/79; PULSE 105; RESP 20; TEMP 98.9; O2SAT 93
[2024-04-03 20:00] VITALS: RESP 20; O2SAT 97
[2024-04-04 06:00] VITALS: BP 153/69; PULSE 90; RESP 18; TEMP 97.8; O2SAT 95
[2024-04-04 08:45] VITALS: RESP 18; O2SAT 95
[2024-04-04 10:40] VITALS: BP 122/85; PULSE 85; TEMP 99.8; O2SAT 98
[2024-04-04 11:33] LABS: CASPR2 Antibody, Cell-based Negative (Negative); LGI1 Antibody, Cell-based IFA Negative (Negative)
[2024-04-04 13:14] LABS: AGNA-1 Negative (Negative); Anti-Ri Ab Negative (Negative); PCA Type-1 (Anti-Yo) Ab Negative (Negative); Purkinje Cell Cyto Ab Type 2 Negative (Negative); Purkinje Cell Cyto Ab Type Tr Negative (Negative)
[2024-04-04 14:31] VITALS: TEMP 99.7
[2024-04-04 17:09] VITALS: BP 139/100; PULSE 93; RESP 18; TEMP 99.7; O2SAT 97
[2024-04-05 04:55] VITALS: BP 119/74; PULSE 85; RESP 16; TEMP 99.1; O2SAT 97
[2024-04-05 08:00] VITALS: RESP 16
[2024-04-05 20:20] VITALS: RESP 16; O2SAT 96
[2024-04-05 23:47] VITALS: BP 151/100; PULSE 113; RESP 16; TEMP 98.7; O2SAT 96
[2024-04-06 04:20] LABS: BASOPHILS % (AUTO) 0.4 % (0-1); EOSINOPHILS # (AUTO) 0.1 X10'3 (0-0.9); EOSINOPHILS % (AUTO) 1.1 % (0-6); HEMATOCRIT 42.2 % (35.0-45.0); HEMOGLOBIN 13.6 g/dl (12.0-16.0); LYMPHOCYTES # (AUTO) 1.5 X10'3 (1.1-4.8); LYMPHOCYTES % (AUTO) 13.1 % (21-51); MEAN CORPUSCULAR HEMOGLOBIN 26.2 PG (27.0-31.0); MEAN CORPUSCULAR HGB CONC 32.2 g/dL (33.0-36.5); MEAN CORPUSCULAR VOLUME 81.5 FL (78-98); MEAN PLATELET VOLUME 8.7 FL (7.4-10.4); MONOCYTES # (AUTO) 0.8 X10'3 (0-0.9); NEUTROPHILS # (AUTO) 8.9 X10'3 (1.8-7.7); NEUTROPHILS % (AUTO) 78.4 % (42-75); PLATELET COUNT 297 X10'3 (140-440); RED BLOOD COUNT 5.18 X10'6 (4.20-5.60); WHITE BLOOD COUNT 11.3 X10'3 (4.5-11.0)
[2024-04-06 04:33] LABS: ALBUMIN/GLOBULIN RATIO 0.7 (1.1-1.5); ALKALINE PHOSPHATASE 135 IU/L (46-116); ANION GAP 6 (8-16); ASPARTATE AMINO TRANSFERASE 47 U/L (10-37); BILIRUBIN,TOTAL 0.3 MG/DL (0.1-1.0); BLOOD UREA NITROGEN 18 MG/DL (7-18); BUN/CREATININE RATIO 43.9 (10.0-20.0); CHLORIDE 107 MMOL/L (99-107); CREATININE 0.41 MG/DL (0.40-0.90); GLUCOSE 116 MG/DL (70-104); POTASSIUM 3.8 MMOL/L (3.5-5.1); SODIUM 144 MMOL/L (135-145); TOTAL CARBON DIOXIDE 30.7 MMOL/L (24-32); TOTAL PROTEIN 7.5 G/DL (6.4-8.2); eCRCL 163 ML/MIN; eGFR > 90 ML/MIN
[2024-04-06 04:45] LABS: ALANINE AMINOTRANSFERASE < 6 U/L (12-78)
[2024-04-06 05:21] LABS: LYME IGG P18 AB Absent (.); LYME IGG P23 AB Absent (.); LYME IGG P28 AB Absent (.); LYME IGG P30 AB Absent (.); LYME IGG P39 AB Absent (.); LYME IGG P41 AB Absent (.); LYME IGG P45 AB Absent (.); LYME IGG P58 AB Present (.); LYME IGG P66 AB Absent (.); LYME IGG P93 AB Absent (.); LYME IGG WB INTERP Negative (.); LYME IGM P23 AB Absent (.); LYME IGM P39 AB Absent (.); LYME IGM P41 AB Absent (.); LYME IGM WB INTERP Negative (.)
[2024-04-06 12:12] VITALS: BP 125/85; PULSE 100; RESP 17; TEMP 97.1; O2SAT 96
[2024-04-06 19:00] VITALS: BP 129/90; PULSE 81; RESP 16; TEMP 98.8; O2SAT 98
[2024-04-06 20:00] VITALS: RESP 16; O2SAT 98
[2024-04-07 07:04] VITALS: BP 142/92; PULSE 88; RESP 15; TEMP 98; O2SAT 99
[2024-04-07 08:00] VITALS: RESP 16; O2SAT 92
[2024-04-07 19:00] VITALS: BP 134/81; PULSE 103; RESP 20; TEMP 98.7; O2SAT 97
[2024-04-07 20:00] VITALS: RESP 16; O2SAT 96
[2024-04-08 07:00] VITALS: BP 144/82; PULSE 102; RESP 16; TEMP 98.2; O2SAT 96
[2024-04-08 08:00] VITALS: RESP 16; O2SAT 95
[2024-04-08 19:00] VITALS: BP 118/78; PULSE 94; RESP 15; TEMP 98.5; O2SAT 99
[2024-04-08 20:00] VITALS: RESP 15; O2SAT 96
[2024-04-09 07:30] VITALS: RESP 18; O2SAT 99
[2024-04-09 08:00] VITALS: RESP 16
[2024-04-09 10:00] VITALS: BP 131/83; PULSE 96; RESP 14; TEMP 98.6; O2SAT 99
[2024-04-09] MEDS ORDERED: glycopyrrolate 1mg tablet PO PRN (15:10)
[2024-04-09 16:12] VITALS: TEMP 98
[2024-04-09 19:15] VITALS: BP 147/82; PULSE 80; RESP 18; TEMP 99.1; O2SAT 96
[2024-04-10 06:00] VITALS: BP 149/82; PULSE 97; RESP 14; TEMP 98.2; O2SAT 98
[2024-04-10 08:30] VITALS: RESP 16
[2024-04-10 18:00] VITALS: BP 136/82; PULSE 85; RESP 14; TEMP 97.7; O2SAT 97
[2024-04-10 20:00] VITALS: RESP 16; O2SAT 97
[2024-04-11 07:00] VITALS: BP 127/83; PULSE 89; RESP 18; TEMP 97.1; O2SAT 97
[2024-04-11 10:00] VITALS: BP 122/93; PULSE 96; RESP 14; TEMP 100; O2SAT 97
[2024-04-11 12:13] VITALS: RESP 14; O2SAT 97
[2024-04-11 19:00] VITALS: BP 118/77; PULSE 104; RESP 18; TEMP 97.7; O2SAT 98
[2024-04-11 20:30] VITALS: RESP 18
[2024-04-12 07:00] VITALS: BP 128/56; PULSE 101; RESP 18; TEMP 97.7; O2SAT 97
[2024-04-12 19:00] VITALS: BP 141/69; PULSE 110; RESP 16; TEMP 98.7; O2SAT 16
[2024-04-12 20:00] VITALS: RESP 16; O2SAT 96
[2024-04-13 06:31] VITALS: BP 130/78; PULSE 94; RESP 16; TEMP 98.8; O2SAT 94
[2024-04-13 10:44] VITALS: RESP 16; O2SAT 97
[2024-04-13 15:22] VITALS: BP 116/73; PULSE 82; RESP 16; TEMP 97.2; O2SAT 98
[2024-04-13 16:47] VITALS: RESP 16; O2SAT 98
[2024-04-13 19:00] VITALS: BP 129/77; PULSE 77; RESP 15; TEMP 99.7; O2SAT 99
[2024-04-13 20:00] VITALS: RESP 15; O2SAT 99
[2024-04-14] VITALS: BP 111/63; PULSE 95; RESP 18; TEMP 98.7; O2SAT 97
[2024-04-14 07:00] VITALS: BP 139/83; PULSE 91; RESP 14; TEMP 98.1; O2SAT 95
[2024-04-14 09:52] VITALS: RESP 16; O2SAT 97
[2024-04-14 19:00] VITALS: BP 135/51; PULSE 63; RESP 18; TEMP 98.8; O2SAT 96
[2024-04-14 20:00] VITALS: RESP 18; O2SAT 96
[2024-04-15 06:00] VITALS: BP 130/82; PULSE 96; RESP 18; TEMP 98; O2SAT 97
[2024-04-15 08:00] VITALS: RESP 18; O2SAT 97
[2024-04-15 19:00] VITALS: BP 137/78; PULSE 107; RESP 17; TEMP 98.5; O2SAT 96
[2024-04-15 20:00] VITALS: RESP 17; O2SAT 96
[2024-04-16 06:00] VITALS: BP 119/80; PULSE 90; RESP 16; TEMP 98.3; O2SAT 95
[2024-04-16 07:45] VITALS: RESP 16
[2024-04-16 10:00] VITALS: PULSE 81; RESP 16; TEMP 98.1; O2SAT 93
[2024-04-16 19:00] VITALS: BP 138/94; PULSE 105; RESP 16; TEMP 98.8; O2SAT 96
[2024-04-16 19:55] VITALS: RESP 16
[2024-04-16] MEDS: carbamide peroxide 15ml bottle EACH EAR PRN (21:32)
[2024-04-17 06:00] VITALS: BP 143/85; PULSE 101; RESP 18; TEMP 98.2; O2SAT 95
[2024-04-17 08:00] VITALS: RESP 16; O2SAT 95
[2024-04-17 18:00] VITALS: BP 145/54; PULSE 107; RESP 18; TEMP 97.5; O2SAT 95
[2024-04-17 19:45] VITALS: RESP 16; O2SAT 95
[2024-04-18 06:00] VITALS: BP 135/86; PULSE 92; RESP 18; TEMP 98.6; O2SAT 99
[2024-04-18 07:53] VITALS: BP 135/86; PULSE 92; RESP 18; TEMP 98.6; O2SAT 99
[2024-04-18 09:00] VITALS: RESP 18; O2SAT 99
[2024-04-18 09:13] VITALS: RESP 16
[2024-04-18 20:00] VITALS: RESP 16; O2SAT 95
[2024-04-18 22:00] VITALS: BP 110/66; PULSE 72; RESP 13; TEMP 98.1; O2SAT 92
[2024-04-19 05:36] LABS: BASOPHILS % (AUTO) 0.3 % (0-1); EOSINOPHILS # (AUTO) 0.1 X10'3 (0-0.9); EOSINOPHILS % (AUTO) 0.7 % (0-6); HEMOGLOBIN 13.5 g/dl (12.0-16.0); LYMPHOCYTES # (AUTO) 1.9 X10'3 (1.1-4.8); LYMPHOCYTES % (AUTO) 14.9 % (21-51); MEAN CORPUSCULAR HEMOGLOBIN 26.7 PG (27.0-31.0); MEAN CORPUSCULAR VOLUME 80.8 FL (78-98); MEAN PLATELET VOLUME 9.3 FL (7.4-10.4); MONOCYTES # (AUTO) 0.9 X10'3 (0-0.9); NEUTROPHILS # (AUTO) 9.9 X10'3 (1.8-7.7); NEUTROPHILS % (AUTO) 77.1 % (42-75); PLATELET COUNT 285 X10'3 (140-440); RED BLOOD COUNT 5.07 X10'6 (4.20-5.60); RED CELL DISTRIBUTION WIDTH 12.7 % (11.5-14.5); WHITE BLOOD COUNT 12.9 X10'3 (4.5-11.0)
[2024-04-19 05:57] LABS: ALANINE AMINOTRANSFERASE 6 U/L (12-78); ALBUMIN 2.9 G/DL (3.4-5.0); ALBUMIN/GLOBULIN RATIO 0.7 (1.1-1.5); ALKALINE PHOSPHATASE 110 IU/L (46-116); ANION GAP 4 (8-16); ASPARTATE AMINO TRANSFERASE 30 U/L (10-37); BILIRUBIN,TOTAL 0.6 MG/DL (0.1-1.0); BLOOD UREA NITROGEN 11 MG/DL (7-18); BUN/CREATININE RATIO 22.9 (10.0-20.0); CALCIUM 8.9 MG/DL (8.5-10.1); CHLORIDE 103 MMOL/L (99-107); CREATININE 0.48 MG/DL (0.40-0.90); GLUCOSE 98 MG/DL (70-104); POTASSIUM 3.5 MMOL/L (3.5-5.1); SODIUM 139 MMOL/L (135-145); TOTAL CARBON DIOXIDE 32.4 MMOL/L (24-32); TOTAL PROTEIN 7.3 G/DL (6.4-8.2); eCRCL 140 ML/MIN; eGFR > 90 ML/MIN
[2024-04-19 06:00] VITALS: BP 118/63; PULSE 81; RESP 15; TEMP 98.3; O2SAT 95
[2024-04-19 08:00] VITALS: RESP 16
[2024-04-19 19:00] VITALS: BP 138/91; PULSE 100; RESP 19; TEMP 98.7; O2SAT 98
[2024-04-19 20:00] VITALS: RESP 19; O2SAT 98
[2024-04-20 06:00] VITALS: BP 148/80; PULSE 98; RESP 20; TEMP 99.3; O2SAT 20
[2024-04-20 08:00] VITALS: RESP 16
[2024-04-20 19:00] VITALS: BP 117/74; PULSE 101; RESP 16; TEMP 99; O2SAT 93
[2024-04-20 20:00] VITALS: RESP 16; O2SAT 93
[2024-04-21 07:00] VITALS: BP 119/76; PULSE 70; RESP 16; TEMP 98.9; O2SAT 96
[2024-04-21 08:00] VITALS: RESP 16
[2024-04-21 08:29] LABS: BASOPHILS % (AUTO) 0.3 % (0-1); EOSINOPHILS # (AUTO) 0.1 X10'3 (0-0.9); EOSINOPHILS % (AUTO) 1.8 % (0-6); LYMPHOCYTES # (AUTO) 1.7 X10'3 (1.1-4.8); LYMPHOCYTES % (AUTO) 21.4 % (21-51); MEAN CORPUSCULAR HEMOGLOBIN 26.2 PG (27.0-31.0); MEAN CORPUSCULAR HGB CONC 32.4 g/dL (33.0-36.5); MEAN CORPUSCULAR VOLUME 80.7 FL (78-98); MONOCYTES # (AUTO) 0.7 X10'3 (0-0.9); MONOCYTES % (AUTO) 8.2 % (2-12); NEUTROPHILS # (AUTO) 5.6 X10'3 (1.8-7.7); NEUTROPHILS % (AUTO) 68.3 % (42-75); PLATELET COUNT 283 X10'3 (140-440); RED BLOOD COUNT 5.33 X10'6 (4.20-5.60); RED CELL DISTRIBUTION WIDTH 12.8 % (11.5-14.5); WHITE BLOOD COUNT 8.1 X10'3 (4.5-11.0)
[2024-04-21 19:00] VITALS: BP 160/82; PULSE 101; RESP 15; TEMP 98.3; O2SAT 98
[2024-04-21 20:00] VITALS: RESP 16; O2SAT 93
[2024-04-22 06:00] VITALS: BP 135/85; PULSE 98; RESP 16; TEMP 97.9; O2SAT 95
[2024-04-22 09:15] VITALS: RESP 16; O2SAT 98
[2024-04-22 19:00] VITALS: BP 133/82; PULSE 95; RESP 16; TEMP 98.6; O2SAT 98
[2024-04-22 20:00] VITALS: RESP 16; O2SAT 98
[2024-04-23 06:00] VITALS: BP 128/57; PULSE 104; RESP 18; TEMP 98.8; O2SAT 98
[2024-04-23 08:00] VITALS: RESP 16
[2024-04-23 19:00] VITALS: RESP 18; TEMP 98.5
[2024-04-23 20:10] VITALS: RESP 16
[2024-04-23 22:00] VITALS: BP 126/71; PULSE 96; RESP 18; TEMP 98.5; O2SAT 97
[2024-04-24 06:58] VITALS: BP 114/66; PULSE 97; RESP 18; TEMP 98.3; O2SAT 99
[2024-04-24 07:30] VITALS: RESP 18; O2SAT 99
[2024-04-24 19:00] VITALS: BP 117/78; PULSE 96; RESP 20; TEMP 97.7; O2SAT 100
[2024-04-24 20:00] VITALS: RESP 18
[2024-04-25 06:00] VITALS: BP 129/69; PULSE 82; RESP 14; TEMP 98.2; O2SAT 97
[2024-04-25 18:00] VITALS: BP 122/84; PULSE 60; RESP 17; TEMP 97.8; O2SAT 92
[2024-04-25 20:10] VITALS: RESP 16
[2024-04-25 22:00] VITALS: BP 136/74; PULSE 96; RESP 14; TEMP 98.3; O2SAT 99
[2024-04-26 09:45] VITALS: RESP 16
[2024-04-26 10:00] VITALS: BP 128/77; PULSE 86; RESP 16; TEMP 98.9; O2SAT 97
[2024-04-26 16:17] VITALS: RESP 12; O2SAT 98
[2024-04-26 18:00] VITALS: BP 134/83; PULSE 99; RESP 16; TEMP 98.9; O2SAT 93
[2024-04-26 22:23] VITALS: RESP 16
[2024-04-27 06:00] VITALS: BP 118/74; PULSE 97; RESP 16; TEMP 98.4; O2SAT 96
[2024-04-27 07:24] VITALS: RESP 16; O2SAT 96
[2024-04-27 18:00] VITALS: BP 120/83; PULSE 92; RESP 18; TEMP 98.5; O2SAT 98
[2024-04-27 20:00] VITALS: RESP 18; O2SAT 98
[2024-04-28 06:00] VITALS: BP 137/83; PULSE 113; RESP 16; TEMP 97.6; O2SAT 95
[2024-04-28 09:00] VITALS: RESP 16
[2024-04-28 19:00] VITALS: BP 135/92; PULSE 96; RESP 18; TEMP 97.8; O2SAT 95
[2024-04-28 20:00] VITALS: RESP 18; O2SAT 95
[2024-04-29 06:00] VITALS: BP 132/75; PULSE 131; RESP 17; TEMP 100.1; O2SAT 93
[2024-04-29 08:48] VITALS: BP 137/79; PULSE 119; RESP 16; O2SAT 95
[2024-04-29 09:00] VITALS: RESP 16
[2024-04-29 10:11] LABS: BASOPHILS # (AUTO) 0.1 X10'3 (0-0.2); BASOPHILS % (AUTO) 0.3 % (0-1); EOSINOPHILS % (AUTO) 0 % (0-6); HEMATOCRIT 44.1 % (35.0-45.0); HEMOGLOBIN 14.1 g/dl (12.0-16.0); LYMPHOCYTES # (AUTO) 1.3 X10'3 (1.1-4.8); LYMPHOCYTES % (AUTO) 4.8 % (21-51); MEAN CORPUSCULAR HEMOGLOBIN 25.7 PG (27.0-31.0); MEAN CORPUSCULAR HGB CONC 32.1 g/dL (33.0-36.5); MEAN CORPUSCULAR VOLUME 80.2 FL (78-98); MEAN PLATELET VOLUME 9.7 FL (7.4-10.4); MONOCYTES # (AUTO) 1.2 X10'3 (0-0.9); MONOCYTES % (AUTO) 4.3 % (2-12); NEUTROPHILS # (AUTO) 25.1 X10'3 (1.8-7.7); NEUTROPHILS % (AUTO) 90.6 % (42-75); PLATELET COUNT 244 X10'3 (140-440); RED CELL DISTRIBUTION WIDTH 13.1 % (11.5-14.5)
[2024-04-29 10:23] LABS: ANION GAP 7 (8-16); BLOOD UREA NITROGEN 13 MG/DL (7-18); CALCIUM 8.8 MG/DL (8.5-10.1); CHLORIDE 103 MMOL/L (99-107); CREATININE 0.52 MG/DL (0.40-0.90); GLUCOSE 137 MG/DL (70-104); POTASSIUM 3.5 MMOL/L (3.5-5.1); SODIUM 139 MMOL/L (135-145); TOTAL CARBON DIOXIDE 29.1 MMOL/L (24-32); eCRCL 124 ML/MIN; eGFR > 90 ML/MIN
[2024-04-29 10:25] LABS: WHITE BLOOD COUNT 27.7 X10'3 (4.5-11.0)
[2024-04-29 10:43] LABS: PLATELET ESTIMATE NORMAL; TOTAL CELLS COUNTED 100
[2024-04-29] MEDS: VANCOmycin 1250MG/NS 250ml Bag 250 ML IV ONE (11:24)
[2024-04-29 12:02] LABS: BILIRUBIN,URINE NEGATIVE (Neg); CLARITY,URINE CLEAR (Clear); GLUCOSE, URINE NEGATIVE (Neg); KETONES,URINE NEGATIVE (Neg); LEUKOCYTE ESTERASE ,URINE NEGATIVE (Neg); NITRITES, URINE NEGATIVE (Neg); OCCULT BLOOD,URINE TRACE-INTACT (Neg); PROTEIN,URINE TRACE mg/dl (Neg)
[2024-04-29 12:03] LABS: UA COLLECTION TYPE STRAIGHT CATH
[2024-04-29 12:04] LABS: COLOR,URINE DARK YELLOW (Yellow)
[2024-04-29 12:11] LABS: BACTERIA,URINE 2+ /HPF (Neg); MUCUS STRANDS FEW /LPF (Neg); SQUAMOUS EPITHELIAL CELL,UR FEW /LPF (FEW); TRANSITIONAL EPI CELLS,URINE FEW /HPF
[2024-04-29] MEDS: piperacillin/tazo 3.375gm/50ml 50 ML IV SCH (17:18)
[2024-04-29 18:00] VITALS: BP 122/72; PULSE 117; RESP 18; TEMP 99.3; O2SAT 93
[2024-04-29 18:10] LABS: BASOPHILS # (AUTO) 0.1 X10'3 (0-0.2); BASOPHILS % (AUTO) 0.3 % (0-1); EOSINOPHILS % (AUTO) 0 % (0-6); HEMATOCRIT 43.7 % (35.0-45.0); HEMOGLOBIN 14.1 g/dl (12.0-16.0); LYMPHOCYTES # (AUTO) 1.6 X10'3 (1.1-4.8); LYMPHOCYTES % (AUTO) 7.5 % (21-51); MEAN CORPUSCULAR HGB CONC 32.4 g/dL (33.0-36.5); MEAN CORPUSCULAR VOLUME 80.4 FL (78-98); MEAN PLATELET VOLUME 9.4 FL (7.4-10.4); MONOCYTES # (AUTO) 0.9 X10'3 (0-0.9); MONOCYTES % (AUTO) 4.4 % (2-12); NEUTROPHILS # (AUTO) 18.6 X10'3 (1.8-7.7); NEUTROPHILS % (AUTO) 87.8 % (42-75); PLATELET COUNT 226 X10'3 (140-440); RED BLOOD COUNT 5.43 X10'6 (4.20-5.60); RED CELL DISTRIBUTION WIDTH 13.2 % (11.5-14.5); WHITE BLOOD COUNT 21.2 X10'3 (4.5-11.0)
[2024-04-29 20:00] VITALS: RESP 18; O2SAT 93
[2024-04-30] MEDS ORDERED: VANCOmycin 1250MG/NS 250ml Bag 250 ML IV SCH
[2024-04-30 06:00] VITALS: BP 113/74; PULSE 132; RESP 22; TEMP 99.3; O2SAT 93
[2024-04-30 06:59] LABS: ALBUMIN 2.8 G/DL (3.4-5.0); ALBUMIN/GLOBULIN RATIO 0.6 (1.1-1.5); ALKALINE PHOSPHATASE 105 IU/L (46-116); ANION GAP 6 (8-16); ASPARTATE AMINO TRANSFERASE 60 U/L (10-37); BILIRUBIN,TOTAL 0.8 MG/DL (0.1-1.0); BLOOD UREA NITROGEN 14 MG/DL (7-18); BUN/CREATININE RATIO 26.9 (10.0-20.0); CALCIUM 8.7 MG/DL (8.5-10.1); CHLORIDE 105 MMOL/L (99-107); CREATININE 0.52 MG/DL (0.40-0.90); GLUCOSE 147 MG/DL (70-104); POTASSIUM 3.5 MMOL/L (3.5-5.1); SODIUM 141 MMOL/L (135-145); TOTAL CARBON DIOXIDE 29.9 MMOL/L (24-32); TOTAL PROTEIN 7.4 G/DL (6.4-8.2); eCRCL 124 ML/MIN; eGFR > 90 ML/MIN
[2024-04-30 07:12] LABS: BASOPHILS % (AUTO) 0.2 % (0-1); EOSINOPHILS # (AUTO) 0.1 X10'3 (0-0.9); EOSINOPHILS % (AUTO) 0.3 % (0-6); HEMATOCRIT 42.8 % (35.0-45.0); HEMOGLOBIN 13.7 g/dl (12.0-16.0); LYMPHOCYTES # (AUTO) 1.7 X10'3 (1.1-4.8); LYMPHOCYTES % (AUTO) 8.6 % (21-51); MEAN CORPUSCULAR HEMOGLOBIN 25.8 PG (27.0-31.0); MEAN CORPUSCULAR HGB CONC 31.9 g/dL (33.0-36.5); MEAN CORPUSCULAR VOLUME 80.9 FL (78-98); MONOCYTES # (AUTO) 0.8 X10'3 (0-0.9); MONOCYTES % (AUTO) 3.8 % (2-12); NEUTROPHILS # (AUTO) 17.5 X10'3 (1.8-7.7); NEUTROPHILS % (AUTO) 87.1 % (42-75); PLATELET COUNT 229 X10'3 (140-440); RED BLOOD COUNT 5.29 X10'6 (4.20-5.60); RED CELL DISTRIBUTION WIDTH 13.3 % (11.5-14.5); WHITE BLOOD COUNT 20.1 X10'3 (4.5-11.0)
[2024-04-30 07:17] VITALS: BP 113/74; PULSE 132; RESP 22; TEMP 99.3; O2SAT 93
[2024-04-30 07:24] LABS: ALANINE AMINOTRANSFERASE < 6 U/L (12-78); CREATINE KINASE 1566 U/L (26-192)
[2024-04-30 08:00] VITALS: RESP 16
[2024-04-30 11:38] VITALS: TEMP 99.6
[2024-04-30] MEDS ORDERED: acetaminophen 325mg tablet PO PRN (14:35)
[2024-04-30] MEDS: normal saline 1000ml 1,000 ML IV SCH (17:16)
[2024-04-30 18:00] VITALS: BP 132/92; PULSE 132; RESP 14; TEMP 100.2; O2SAT 97
[2024-04-30] MEDS ORDERED: acetaminophen 325mg tablet PEG PRN (18:46)
[2024-04-30 20:00] VITALS: RESP 16; TEMP 99.8
[2024-04-30] MEDS ORDERED: VANCOMYCIN LEVEL IV ONE (23:30)
[2024-05-01 04:33] VITALS: TEMP 98.4
[2024-05-01 06:00] VITALS: BP 127/83; PULSE 113; RESP 22; TEMP 99.9; O2SAT 92
[2024-05-01 06:11] LABS: BASOPHILS % (AUTO) 0.3 % (0-1); EOSINOPHILS % (AUTO) 0.2 % (0-6); HEMATOCRIT 40.2 % (35.0-45.0); HEMOGLOBIN 12.9 g/dl (12.0-16.0); LYMPHOCYTES # (AUTO) 1.9 X10'3 (1.1-4.8); LYMPHOCYTES % (AUTO) 12.7 % (21-51); MEAN CORPUSCULAR HGB CONC 32.2 g/dL (33.0-36.5); MEAN CORPUSCULAR VOLUME 80.8 FL (78-98); MEAN PLATELET VOLUME 9.8 FL (7.4-10.4); NEUTROPHILS # (AUTO) 11.9 X10'3 (1.8-7.7); NEUTROPHILS % (AUTO) 79.8 % (42-75); PLATELET COUNT 210 X10'3 (140-440); RED BLOOD COUNT 4.97 X10'6 (4.20-5.60); RED CELL DISTRIBUTION WIDTH 12.9 % (11.5-14.5)
[2024-05-01 06:30] LABS: ALBUMIN 2.5 G/DL (3.4-5.0); ALBUMIN/GLOBULIN RATIO 0.6 (1.1-1.5); ALKALINE PHOSPHATASE 100 IU/L (46-116); ANION GAP 9 (8-16); ASPARTATE AMINO TRANSFERASE 50 U/L (10-37); BILIRUBIN,TOTAL 0.8 MG/DL (0.1-1.0); BLOOD UREA NITROGEN 14 MG/DL (7-18); BUN/CREATININE RATIO 32.6 (10.0-20.0); CALCIUM 8.5 MG/DL (8.5-10.1); CHLORIDE 108 MMOL/L (99-107); CREATININE 0.43 MG/DL (0.40-0.90); GLUCOSE 112 MG/DL (70-104); POTASSIUM 3.3 MMOL/L (3.5-5.1); SODIUM 144 MMOL/L (135-145); TOTAL CARBON DIOXIDE 27.1 MMOL/L (24-32); TOTAL PROTEIN 6.8 G/DL (6.4-8.2); eCRCL 140 ML/MIN; eGFR > 90 ML/MIN
[2024-05-01 06:56] LABS: ALANINE AMINOTRANSFERASE < 6 U/L (12-78)
[2024-05-01 07:15] VITALS: BP 127/83; PULSE 113; RESP 22; TEMP 99.9; O2SAT 92
[2024-05-01 08:00] VITALS: RESP 16
[2024-05-01] MEDS ORDERED: potassium Cl 40MEQ/1/2NS 520ml 520 ML IV PRN (11:20)
[2024-05-01] MEDS ORDERED: magnesium sulf-water 2g/50mL 50 ML IV PRN (11:20)
[2024-05-01] MEDS ORDERED: magnesium Cl slow-release 64mg tablet PO PRN (11:20)
[2024-05-01] MEDS ORDERED: potassium Cl 20 mEq SR tablet PO PRN ×2 (11:20)
[2024-05-01] MEDS ORDERED: magnesium sulf-water 4G/100mL 100 ML IV PRN (11:20)
[2024-05-01 19:14] LABS: CREATINE KINASE 346 U/L (26-192)
[2024-05-01 19:40] VITALS: RESP 16
[2024-05-01] MEDS: BETAMETHASONE DIPROPIONATE 0.05% TP SCH (22:48)
[2024-05-02] VITALS: BP 122/71; PULSE 93; RESP 20; TEMP 99.7; O2SAT 98
[2024-05-02 05:50] LABS: BASOPHILS % (AUTO) 0.5 % (0-1); EOSINOPHILS # (AUTO) 0.3 X10'3 (0-0.9); EOSINOPHILS % (AUTO) 2.8 % (0-6); HEMATOCRIT 35.7 % (35.0-45.0); HEMOGLOBIN 11.5 g/dl (12.0-16.0); LYMPHOCYTES # (AUTO) 1.9 X10'3 (1.1-4.8); MEAN CORPUSCULAR HEMOGLOBIN 25.9 PG (27.0-31.0); MEAN CORPUSCULAR HGB CONC 32.1 g/dL (33.0-36.5); MEAN CORPUSCULAR VOLUME 80.7 FL (78-98); MEAN PLATELET VOLUME 9.6 FL (7.4-10.4); MONOCYTES % (AUTO) 10.6 % (2-12); NEUTROPHILS # (AUTO) 6.1 X10'3 (1.8-7.7); NEUTROPHILS % (AUTO) 65.1 % (42-75); PLATELET COUNT 194 X10'3 (140-440); RED BLOOD COUNT 4.42 X10'6 (4.20-5.60); RED CELL DISTRIBUTION WIDTH 12.9 % (11.5-14.5); WHITE BLOOD COUNT 9.3 X10'3 (4.5-11.0)
[2024-05-02 06:00] VITALS: BP 122/65; PULSE 90; RESP 16; TEMP 98.4; O2SAT 97
[2024-05-02 06:14] LABS: ALBUMIN 2.3 G/DL (3.4-5.0); ALBUMIN/GLOBULIN RATIO 0.6 (1.1-1.5); ALKALINE PHOSPHATASE 82 IU/L (46-116); ANION GAP 6 (8-16); ASPARTATE AMINO TRANSFERASE 51 U/L (10-37); BILIRUBIN,TOTAL 0.7 MG/DL (0.1-1.0); BLOOD UREA NITROGEN 14 MG/DL (7-18); BUN/CREATININE RATIO 34.1 (10.0-20.0); CALCIUM 8.4 MG/DL (8.5-10.1); CHLORIDE 108 MMOL/L (99-107); CREATININE 0.41 MG/DL (0.40-0.90); GLUCOSE 121 MG/DL (70-104); MAGNESIUM 2.1 MG/DL (1.5-2.4); POTASSIUM 3.3 MMOL/L (3.5-5.1); SODIUM 142 MMOL/L (135-145); TOTAL PROTEIN 6.3 G/DL (6.4-8.2); eCRCL 147 ML/MIN; eGFR > 90 ML/MIN
[2024-05-02 06:22] LABS: ALANINE AMINOTRANSFERASE < 6 U/L (12-78)
[2024-05-02] MEDS ORDERED: POTASSIUM CHLORIDE 20 MEQ/15 ML oral solution PO PRN (07:27)
[2024-05-02] MEDS ORDERED: POTASSIUM CHLORIDE 20 MEQ/15 ML oral solution PEG PRN (07:28)
[2024-05-02 07:32] VITALS: BP 122/65; PULSE 90; RESP 16; TEMP 98.4; O2SAT 97
[2024-05-02 08:00] VITALS: RESP 16; O2SAT 97
[2024-05-02] MEDS: POTASSIUM CHLORIDE 20 MEQ/15 ML oral solution PEG PRN (08:40)
[2024-05-02] MEDS: amoxicillin 250MG/5ML oral suspension 80ML PEG SCH (17:03)
[2024-05-03] VITALS (8 sets, daily range): BP systolic 116–146; BP diastolic 69–87; PULSE 101–114; RESP 16–20; TEMP 98–98.6; O2SAT 96–98
[2024-05-03 06:13] LABS: ALBUMIN 2.5 G/DL (3.4-5.0); ALBUMIN/GLOBULIN RATIO 0.6 (1.1-1.5); ALKALINE PHOSPHATASE 87 IU/L (46-116); ANION GAP 3 (8-16); ASPARTATE AMINO TRANSFERASE 52 U/L (10-37); BILIRUBIN,TOTAL 0.5 MG/DL (0.1-1.0); BLOOD UREA NITROGEN 10 MG/DL (7-18); BUN/CREATININE RATIO 24.4 (10.0-20.0); CALCIUM 8.5 MG/DL (8.5-10.1); CHLORIDE 102 MMOL/L (99-107); CREATININE 0.41 MG/DL (0.40-0.90); GLUCOSE 127 MG/DL (70-104); MAGNESIUM 1.9 MG/DL (1.5-2.4); POTASSIUM 3.6 MMOL/L (3.5-5.1); SODIUM 136 MMOL/L (135-145); TOTAL CARBON DIOXIDE 30.6 MMOL/L (24-32); TOTAL PROTEIN 6.9 G/DL (6.4-8.2); eCRCL 150 ML/MIN; eGFR > 90 ML/MIN
[2024-05-03 06:14] LABS: BASOPHILS % (AUTO) 0.4 % (0-1); EOSINOPHILS # (AUTO) 0.4 X10'3 (0-0.9); EOSINOPHILS % (AUTO) 4.8 % (0-6); HEMATOCRIT 37.7 % (35.0-45.0); HEMOGLOBIN 12.3 g/dl (12.0-16.0); LYMPHOCYTES # (AUTO) 1.7 X10'3 (1.1-4.8); LYMPHOCYTES % (AUTO) 21.3 % (21-51); MEAN CORPUSCULAR HEMOGLOBIN 26.2 PG (27.0-31.0); MEAN CORPUSCULAR HGB CONC 32.6 g/dL (33.0-36.5); MEAN CORPUSCULAR VOLUME 80.4 FL (78-98); MEAN PLATELET VOLUME 9.7 FL (7.4-10.4); MONOCYTES # (AUTO) 0.6 X10'3 (0-0.9); MONOCYTES % (AUTO) 7.6 % (2-12); NEUTROPHILS # (AUTO) 5.4 X10'3 (1.8-7.7); NEUTROPHILS % (AUTO) 65.9 % (42-75); PLATELET COUNT 205 X10'3 (140-440); RED BLOOD COUNT 4.69 X10'6 (4.20-5.60); RED CELL DISTRIBUTION WIDTH 13.1 % (11.5-14.5); WHITE BLOOD COUNT 8.1 X10'3 (4.5-11.0)
[2024-05-03 06:17] LABS: ALANINE AMINOTRANSFERASE < 6 U/L (12-78)
[2024-05-03] MEDS: amoxicillin 250MG/5ML oral suspension 80ML PEG SCH (16:24)
[2024-05-04 06:00] VITALS: BP 105/72; PULSE 94; RESP 14; TEMP 97; O2SAT 98
[2024-05-04 06:04] LABS: BASOPHILS % (AUTO) 0.4 % (0-1); EOSINOPHILS # (AUTO) 0.3 X10'3 (0-0.9); EOSINOPHILS % (AUTO) 3.9 % (0-6); HEMATOCRIT 39.9 % (35.0-45.0); HEMOGLOBIN 13.5 g/dl (12.0-16.0); LYMPHOCYTES # (AUTO) 2.1 X10'3 (1.1-4.8); LYMPHOCYTES % (AUTO) 24.9 % (21-51); MEAN CORPUSCULAR HEMOGLOBIN 27.5 PG (27.0-31.0); MEAN CORPUSCULAR HGB CONC 33.8 g/dL (33.0-36.5); MEAN CORPUSCULAR VOLUME 81.2 FL (78-98); MEAN PLATELET VOLUME 9.7 FL (7.4-10.4); MONOCYTES # (AUTO) 0.7 X10'3 (0-0.9); NEUTROPHILS # (AUTO) 5.4 X10'3 (1.8-7.7); NEUTROPHILS % (AUTO) 62.8 % (42-75); PLATELET COUNT 243 X10'3 (140-440); RED BLOOD COUNT 4.92 X10'6 (4.20-5.60); RED CELL DISTRIBUTION WIDTH 13.1 % (11.5-14.5); WHITE BLOOD COUNT 8.6 X10'3 (4.5-11.0)
[2024-05-04 06:25] LABS: ALBUMIN 2.7 G/DL (3.4-5.0); ALBUMIN/GLOBULIN RATIO 0.6 (1.1-1.5); ALKALINE PHOSPHATASE 90 IU/L (46-116); ANION GAP 7 (8-16); ASPARTATE AMINO TRANSFERASE 33 U/L (10-37); BILIRUBIN,TOTAL 0.5 MG/DL (0.1-1.0); BLOOD UREA NITROGEN 11 MG/DL (7-18); CHLORIDE 102 MMOL/L (99-107); GLUCOSE 132 MG/DL (70-104); MAGNESIUM 2.1 MG/DL (1.5-2.4); POTASSIUM 3.4 MMOL/L (3.5-5.1); SODIUM 139 MMOL/L (135-145); TOTAL CARBON DIOXIDE 30.1 MMOL/L (24-32); TOTAL PROTEIN 7.2 G/DL (6.4-8.2); eCRCL 126 ML/MIN; eGFR > 90 ML/MIN
[2024-05-04 06:27] LABS: ALANINE AMINOTRANSFERASE < 6 U/L (12-78)
[2024-05-04 09:18] VITALS: RESP 16
[2024-05-04] MEDS ORDERED: POTASSIUM CHLORIDE 20 MEQ/15 ML oral solution PO PRN (14:35)
[2024-05-04] MEDS: POTASSIUM CHLORIDE 20 MEQ/15 ML oral solution PO PRN (15:25)
[2024-05-04 18:08] VITALS: BP 126/87; PULSE 104; RESP 16; TEMP 98.7; O2SAT 95
[2024-05-04 20:00] VITALS: RESP 16; O2SAT 95
[2024-05-05 05:53] LABS: MAGNESIUM 2.1 MG/DL (1.5-2.4); POTASSIUM 3.7 MMOL/L (3.5-5.1)
[2024-05-05 06:54] VITALS: BP 120/89; PULSE 109; RESP 20; TEMP 99.5; O2SAT 93
[2024-05-05 07:59] VITALS: RESP 16; O2SAT 93
[2024-05-05 19:00] VITALS: BP 119/76; PULSE 103; RESP 20; TEMP 99.4; O2SAT 95
[2024-05-05 20:00] VITALS: RESP 16; O2SAT 95
[2024-05-06 06:14] LABS: MAGNESIUM 2.1 MG/DL (1.5-2.4); POTASSIUM 3.5 MMOL/L (3.5-5.1)
[2024-05-06 07:00] VITALS: BP 112/77; PULSE 99; RESP 14; TEMP 98.7; O2SAT 96
[2024-05-06 08:00] VITALS: RESP 16; O2SAT 96
[2024-05-06 19:00] VITALS: BP 140/93; PULSE 103; RESP 16; TEMP 97.4; O2SAT 96
[2024-05-06 20:00] VITALS: RESP 16; O2SAT 97
[2024-05-07 07:03] VITALS: BP 152/78; PULSE 98; RESP 16; TEMP 99.2; O2SAT 99
[2024-05-07] MEDS: glycopyrrolate 1mg tablet PEG PRN (15:53)
[2024-05-07 19:00] VITALS: BP 117/78; PULSE 99; RESP 16; TEMP 98.4; O2SAT 94
[2024-05-07 20:45] VITALS: RESP 16
[2024-05-08 08:00] VITALS: BP 123/71; PULSE 98; RESP 18; TEMP 98.8; O2SAT 100
[2024-05-08 18:00] VITALS: BP 134/88; PULSE 102; RESP 20; TEMP 97.3; O2SAT 97
[2024-05-08 20:00] VITALS: RESP 15
[2024-05-09 07:46] VITALS: BP 120/76; PULSE 109; RESP 16; TEMP 98.2; O2SAT 95
[2024-05-09 08:00] VITALS: RESP 16; O2SAT 95
[2024-05-09 18:00] VITALS: BP_SYST 130; PULSE 116; RESP 14; TEMP 97.7; O2SAT 99
[2024-05-09 20:00] VITALS: RESP 15; O2SAT 98
[2024-05-10 06:00] VITALS: BP 123/69; PULSE 106; RESP 14; TEMP 97.2; O2SAT 97
[2024-05-10 08:16] VITALS: RESP 14
[2024-05-10 14:29] VITALS: RESP 16; O2SAT 97
[2024-05-10 19:00] VITALS: BP 158/77; PULSE 99; RESP 19; TEMP 98.6; O2SAT 96
[2024-05-10 20:00] VITALS: RESP 19; O2SAT 96
[2024-05-11 08:00] VITALS: RESP 18; O2SAT 97
[2024-05-11 13:10] VITALS: BP 143/94; PULSE 105; RESP 18; TEMP 98.4; O2SAT 97
[2024-05-11 15:01] VITALS: RESP 18; O2SAT 97
[2024-05-11 19:00] VITALS: BP 148/84; PULSE 102; RESP 18; TEMP 98.1; O2SAT 95
[2024-05-11 20:00] VITALS: RESP 18; O2SAT 95
[2024-05-12 07:00] VITALS: BP 133/94; PULSE 110; RESP 18; TEMP 98.1; O2SAT 99
[2024-05-12 08:00] VITALS: RESP 16; O2SAT 99
[2024-05-12 19:00] VITALS: BP 127/77; PULSE 105; RESP 20; TEMP 99.3; O2SAT 96
[2024-05-12 20:00] VITALS: RESP 20; O2SAT 96
[2024-05-13 07:07] VITALS: BP 128/74; PULSE 110; RESP 14; TEMP 97.9; O2SAT 94
[2024-05-13 08:00] VITALS: RESP 16; O2SAT 95
[2024-05-13 19:15] VITALS: BP 134/77; PULSE 104; RESP 20; TEMP 98.1; O2SAT 98
[2024-05-14 06:00] VITALS: BP 141/87; PULSE 117; RESP 20; TEMP 99.1; O2SAT 96
[2024-05-14 18:00] VITALS: BP 136/79; PULSE 107; RESP 22; TEMP 98.4; O2SAT 96
[2024-05-14 20:00] VITALS: RESP 22; O2SAT 97
[2024-05-15 06:00] VITALS: BP 135/74; PULSE 78; RESP 14; TEMP 97.9; O2SAT 96
[2024-05-15 08:00] VITALS: RESP 13; O2SAT 95
[2024-05-15 19:00] VITALS: BP 115/58; PULSE 97; RESP 16; TEMP 98; O2SAT 95
[2024-05-15 20:00] VITALS: RESP 16; O2SAT 95
[2024-05-16 07:25] VITALS: BP 115/63; PULSE 83; RESP 12; TEMP 98.6; O2SAT 97
[2024-05-16 17:31] VITALS: BP 124/81; PULSE 101; RESP 16; TEMP 99.3; O2SAT 93
[2024-05-16 19:00] VITALS: BP 124/81; PULSE 101; RESP 16; TEMP 99.3; O2SAT 93
[2024-05-16 20:00] VITALS: RESP 16; O2SAT 93
[2024-05-17 06:00] VITALS: BP 139/75; PULSE 102; RESP 14; TEMP 97.7; O2SAT 95
[2024-05-17 08:00] VITALS: RESP 16
[2024-05-17 19:00] VITALS: BP 135/78; PULSE 102; RESP 16; TEMP 97.4; O2SAT 100
[2024-05-17 20:00] VITALS: RESP 16; O2SAT 100
[2024-05-18 09:12] VITALS: RESP 16; O2SAT 100
[2024-05-18 10:00] VITALS: BP 134/91; PULSE 85; RESP 16; TEMP 98; O2SAT 97
[2024-05-18 13:11] VITALS: RESP 16; RESP 17; O2SAT 95; O2SAT 97
[2024-05-18 19:00] VITALS: BP 133/94; PULSE 93; RESP 16; TEMP 97.8; O2SAT 99
[2024-05-18 20:00] VITALS: RESP 18
[2024-05-19 07:28] VITALS: BP 141/88; PULSE 81; RESP 14; TEMP 97.3; O2SAT 95
[2024-05-19 08:00] VITALS: RESP 16; O2SAT 94
[2024-05-19 19:00] VITALS: BP 126/76; PULSE 101; RESP 18; TEMP 98.3; O2SAT 94
[2024-05-19 20:00] VITALS: RESP 18; O2SAT 94
[2024-05-20 06:00] VITALS: BP 123/81; PULSE 99; RESP 16; TEMP 98.4; O2SAT 99
[2024-05-20 08:00] VITALS: RESP 16; O2SAT 99
[2024-05-20 19:00] VITALS: BP 125/74; PULSE 95; RESP 16; TEMP 97.8; O2SAT 97
[2024-05-20 20:00] VITALS: RESP 16; O2SAT 97
[2024-05-21 06:39] VITALS: BP 131/82; PULSE 102; RESP 22; TEMP 98.5; O2SAT 97
[2024-05-21 08:00] VITALS: RESP 16
[2024-05-21 11:11] VITALS: BP 132/82; PULSE 96; RESP 18; TEMP 98.3
[2024-05-21 19:00] VITALS: BP 119/67; PULSE 64; RESP 18; TEMP 97.6
[2024-05-21 20:00] VITALS: RESP 16
[2024-05-21] MEDS: glycopyrrolate 1mg tablet PEG SCH (21:26)
[2024-05-22 06:52] VITALS: BP 151/85; PULSE 99; RESP 14; TEMP 99.1; O2SAT 94
[2024-05-22 08:00] VITALS: RESP 16
[2024-05-22 09:43] VITALS: BP 122/82; PULSE 97; RESP 18; TEMP 98.1; O2SAT 97
[2024-05-22 18:00] VITALS: BP 121/80; PULSE 108; RESP 18; TEMP 99.4; O2SAT 95
[2024-05-22 22:00] VITALS: BP 158/92; PULSE 100; RESP 18; TEMP 98.6; O2SAT 96
[2024-05-23 07:01] VITALS: BP 129/89; PULSE 98; RESP 18; TEMP 98.8; O2SAT 98
[2024-05-23 07:52] VITALS: RESP 18; O2SAT 98
[2024-05-23 19:00] VITALS: BP 116/76; PULSE 95; RESP 18; TEMP 98.6; O2SAT 97
[2024-05-23 20:10] VITALS: RESP 18
[2024-05-23 22:35] VITALS: RESP 18; O2SAT 97
[2024-05-24 06:00] VITALS: BP 109/76; PULSE 87; RESP 12; TEMP 98.8; O2SAT 95
[2024-05-24 08:00] VITALS: RESP 12; O2SAT 95
[2024-05-24 19:00] VITALS: BP 138/80; PULSE 93; RESP 18; TEMP 98; O2SAT 97
[2024-05-24 20:00] VITALS: RESP 18; O2SAT 97
[2024-05-25] VITALS (7 sets, daily range): BP systolic 107–125; BP diastolic 65–72; PULSE 66–69; RESP 14–66; TEMP 97.7–98.3; O2SAT 95–100
[2024-05-26 06:58] VITALS: BP 130/75; PULSE 90; RESP 16; TEMP 98.2; O2SAT 97
[2024-05-26 09:27] VITALS: RESP 16; O2SAT 97
[2024-05-26 19:00] VITALS: BP 127/79; PULSE 115; RESP 22; TEMP 100; O2SAT 96
[2024-05-26 20:00] VITALS: RESP 22; O2SAT 96
[2024-05-27 06:00] VITALS: BP 122/77; PULSE 93; RESP 20; TEMP 98.4; O2SAT 97
[2024-05-27 06:16] LABS: BASOPHILS % (AUTO) 0.2 % (0-1); EOSINOPHILS # (AUTO) 0.3 X10'3 (0-0.9); EOSINOPHILS % (AUTO) 3.1 % (0-6); HEMATOCRIT 40.5 % (35.0-45.0); HEMOGLOBIN 13.2 g/dl (12.0-16.0); LYMPHOCYTES # (AUTO) 1.6 X10'3 (1.1-4.8); LYMPHOCYTES % (AUTO) 19.9 % (21-51); MEAN CORPUSCULAR HEMOGLOBIN 26.3 PG (27.0-31.0); MEAN CORPUSCULAR HGB CONC 32.6 g/dL (33.0-36.5); MEAN CORPUSCULAR VOLUME 80.6 FL (78-98); MEAN PLATELET VOLUME 9.7 FL (7.4-10.4); MONOCYTES # (AUTO) 0.6 X10'3 (0-0.9); MONOCYTES % (AUTO) 7.4 % (2-12); NEUTROPHILS # (AUTO) 5.6 X10'3 (1.8-7.7); NEUTROPHILS % (AUTO) 69.4 % (42-75); PLATELET COUNT 227 X10'3 (140-440); RED BLOOD COUNT 5.02 X10'6 (4.20-5.60); WHITE BLOOD COUNT 8.1 X10'3 (4.5-11.0)
[2024-05-27 06:28] LABS: ALBUMIN 3.1 G/DL (3.4-5.0); ALBUMIN/GLOBULIN RATIO 0.7 (1.1-1.5); ALKALINE PHOSPHATASE 101 IU/L (46-116); ANION GAP 6 (8-16); ASPARTATE AMINO TRANSFERASE 25 U/L (10-37); BILIRUBIN,TOTAL 0.5 MG/DL (0.1-1.0); BLOOD UREA NITROGEN 12 MG/DL (7-18); CALCIUM 8.7 MG/DL (8.5-10.1); CHLORIDE 103 MMOL/L (99-107); CREATININE 0.48 MG/DL (0.40-0.90); GLUCOSE 136 MG/DL (70-104); POTASSIUM 3.4 MMOL/L (3.5-5.1); SODIUM 140 MMOL/L (135-145); TOTAL CARBON DIOXIDE 31.1 MMOL/L (24-32); TOTAL PROTEIN 7.5 G/DL (6.4-8.2); eCRCL 140 ML/MIN; eGFR > 90 ML/MIN
[2024-05-27 06:29] LABS: ALANINE AMINOTRANSFERASE < 6 U/L (12-78)
[2024-05-27 08:52] VITALS: RESP 20; O2SAT 97
[2024-05-27 18:00] VITALS: BP 139/87; PULSE 87; RESP 20; TEMP 97.6; O2SAT 97
[2024-05-27 20:00] VITALS: RESP 20; O2SAT 97
[2024-05-28 06:00] VITALS: BP 165/97; PULSE 90; RESP 16; TEMP 97.6; O2SAT 95
[2024-05-28 09:00] VITALS: RESP 16
[2024-05-28 19:00] VITALS: BP 122/74; PULSE 96; RESP 14; TEMP 98.4; O2SAT 99
[2024-05-28 22:00] VITALS: BP 138/88; PULSE 89; RESP 14; TEMP 97.8; O2SAT 96
[2024-05-29 06:00] VITALS: BP 138/89; PULSE 105; RESP 18; TEMP 97.9; O2SAT 94
[2024-05-29 08:15] VITALS: RESP 16; O2SAT 95
[2024-05-29 18:00] VITALS: BP 134/85; PULSE 96; RESP 20; TEMP 97.9; O2SAT 97
[2024-05-29 20:00] VITALS: RESP 20; O2SAT 97
[2024-05-29 22:00] VITALS: BP 141/90; PULSE 96; RESP 16; TEMP 98.2; O2SAT 96
[2024-05-30 08:15] VITALS: RESP 16; O2SAT 96
[2024-05-30 10:00] VITALS: BP 119/77; PULSE 82; RESP 16; TEMP 97.5; O2SAT 98
[2024-05-30 19:00] VITALS: BP 115/82; PULSE 54; RESP 17; TEMP 97.3; O2SAT 100
[2024-05-30 20:00] VITALS: RESP 16; O2SAT 100
[2024-05-30 22:00] VITALS: BP 137/81; PULSE 95; RESP 14; TEMP 97.8; O2SAT 99
[2024-05-31 06:49] VITALS: BP 144/90; PULSE 66; RESP 16; TEMP 96.8; O2SAT 94
[2024-05-31 08:00] VITALS: RESP 12
[2024-05-31 13:42] VITALS: RESP 16; O2SAT 98
[2024-05-31 17:49] VITALS: BP 133/86; PULSE 90; RESP 14; TEMP 97.5; O2SAT 98
[2024-05-31 19:00] VITALS: BP 133/86; PULSE 90; RESP 14; TEMP 97.5; O2SAT 98
[2024-06-01 06:00] VITALS: BP 127/94; PULSE 75; RESP 16; TEMP 98.6; O2SAT 95
[2024-06-01 19:00] VITALS: BP 128/88; PULSE 95; RESP 20; TEMP 96.7; O2SAT 100
[2024-06-01 20:00] VITALS: RESP 20; O2SAT 100
[2024-06-02 06:00] VITALS: BP 138/90; PULSE 99; RESP 20; TEMP 97.5; O2SAT 99
[2024-06-02 08:50] VITALS: RESP 20; O2SAT 100
[2024-06-02 19:00] VITALS: BP 106/58; PULSE 66; RESP 14; TEMP 97.9; O2SAT 95
[2024-06-02 20:00] VITALS: RESP 20; O2SAT 100
[2024-06-03 05:41] LABS: BASOPHILS % (AUTO) 0.5 % (0-1); EOSINOPHILS # (AUTO) 0.4 X10'3 (0-0.9); EOSINOPHILS % (AUTO) 3.9 % (0-6); HEMATOCRIT 39.9 % (35.0-45.0); HEMOGLOBIN 13.1 g/dl (12.0-16.0); LYMPHOCYTES # (AUTO) 2.2 X10'3 (1.1-4.8); LYMPHOCYTES % (AUTO) 23.4 % (21-51); MEAN CORPUSCULAR HEMOGLOBIN 26.3 PG (27.0-31.0); MEAN CORPUSCULAR HGB CONC 32.9 g/dL (33.0-36.5); MEAN PLATELET VOLUME 9.6 FL (7.4-10.4); MONOCYTES # (AUTO) 0.7 X10'3 (0-0.9); NEUTROPHILS # (AUTO) 6.2 X10'3 (1.8-7.7); NEUTROPHILS % (AUTO) 65.2 % (42-75); PLATELET COUNT 257 X10'3 (140-440); RED BLOOD COUNT 4.99 X10'6 (4.20-5.60); RED CELL DISTRIBUTION WIDTH 14.1 % (11.5-14.5); WHITE BLOOD COUNT 9.5 X10'3 (4.5-11.0)
[2024-06-03 05:54] LABS: ALBUMIN 3.2 G/DL (3.4-5.0); ALBUMIN/GLOBULIN RATIO 0.7 (1.1-1.5); ALKALINE PHOSPHATASE 100 IU/L (46-116); ANION GAP 4 (8-16); ASPARTATE AMINO TRANSFERASE 23 U/L (10-37); BILIRUBIN,TOTAL 0.4 MG/DL (0.1-1.0); BLOOD UREA NITROGEN 12 MG/DL (7-18); BUN/CREATININE RATIO 24.5 (10.0-20.0); CALCIUM 8.9 MG/DL (8.5-10.1); CHLORIDE 103 MMOL/L (99-107); CREATININE 0.49 MG/DL (0.40-0.90); GLUCOSE 112 MG/DL (70-104); POTASSIUM 3.5 MMOL/L (3.5-5.1); SODIUM 138 MMOL/L (135-145); TOTAL CARBON DIOXIDE 31.4 MMOL/L (24-32); TOTAL PROTEIN 7.5 G/DL (6.4-8.2); eCRCL 143 ML/MIN; eGFR > 90 ML/MIN
[2024-06-03 06:09] LABS: ALANINE AMINOTRANSFERASE < 6 U/L (12-78)
[2024-06-03 10:00] VITALS: BP 119/75; PULSE 93; RESP 16; TEMP 97.4; O2SAT 93
[2024-06-03 11:00] VITALS: RESP 16; O2SAT 96
[2024-06-03 19:00] VITALS: BP 134/79; PULSE 101; RESP 16; TEMP 98.4; O2SAT 98
[2024-06-03 20:00] VITALS: RESP 16; O2SAT 98
[2024-06-04 06:00] VITALS: BP 130/93; PULSE 102; RESP 16; TEMP 98.8; O2SAT 98
[2024-06-04 19:00] VITALS: BP 123/87; PULSE 94; RESP 14; TEMP 98.2; O2SAT 98
[2024-06-04 20:00] VITALS: RESP 14; O2SAT 98
[2024-06-05 07:00] VITALS: BP 122/77; PULSE 88; RESP 16; TEMP 98.3; O2SAT 97
[2024-06-05 19:00] VITALS: BP 154/95; PULSE 100; RESP 18; TEMP 99; O2SAT 96
[2024-06-05 20:00] VITALS: RESP 13; O2SAT 96
[2024-06-06 06:00] VITALS: BP 126/83; PULSE 95; RESP 14; TEMP 98.7; O2SAT 98
[2024-06-06 19:00] VITALS: BP 125/93; PULSE 45; RESP 16; TEMP 98.5; O2SAT 100
[2024-06-06 20:00] VITALS: RESP 16; O2SAT 100
[2024-06-07 07:12] VITALS: BP 145/91; PULSE 97; RESP 20; TEMP 98.5; O2SAT 95
[2024-06-07 08:00] VITALS: RESP 16; O2SAT 94
[2024-06-07 20:00] VITALS: BP 124/80; PULSE 84; RESP 17; TEMP 98.3; O2SAT 96
[2024-06-08] MEDS: FLU VACC TS2024-25(6MOS UP)/PF 45 MCG/0.5 ML SYRINGE IMVAC ONE (05:15)
[2024-06-08 06:22] VITALS: BP 130/82; PULSE 96; RESP 18; TEMP 98.2; O2SAT 97
[2024-06-08 19:00] VITALS: BP 128/78; PULSE 95; RESP 18; TEMP 97.7; O2SAT 98
[2024-06-08 20:00] VITALS: RESP 18; O2SAT 98
[2024-06-09 07:00] VITALS: BP 127/84; PULSE 94; RESP 16; TEMP 98.1; O2SAT 99
[2024-06-09 08:00] VITALS: RESP 16; O2SAT 98
[2024-06-09 19:00] VITALS: BP 117/68; PULSE 85; RESP 12; TEMP 98.2; O2SAT 97
[2024-06-09 20:00] VITALS: RESP 12; O2SAT 97
[2024-06-10 06:00] VITALS: BP 145/88; PULSE 88; RESP 14; TEMP 98; O2SAT 96
[2024-06-10 06:19] LABS: BASOPHILS % (AUTO) 0.3 % (0-1); EOSINOPHILS # (AUTO) 0.5 X10'3 (0-0.9); EOSINOPHILS % (AUTO) 5.9 % (0-6); HEMATOCRIT 41.7 % (35.0-45.0); HEMOGLOBIN 13.4 g/dl (12.0-16.0); LYMPHOCYTES # (AUTO) 2.4 X10'3 (1.1-4.8); LYMPHOCYTES % (AUTO) 26.8 % (21-51); MEAN CORPUSCULAR HGB CONC 32.2 g/dL (33.0-36.5); MEAN CORPUSCULAR VOLUME 80.6 FL (78-98); MONOCYTES # (AUTO) 0.8 X10'3 (0-0.9); MONOCYTES % (AUTO) 8.7 % (2-12); NEUTROPHILS # (AUTO) 5.2 X10'3 (1.8-7.7); NEUTROPHILS % (AUTO) 58.3 % (42-75); PLATELET COUNT 272 X10'3 (140-440); RED BLOOD COUNT 5.17 X10'6 (4.20-5.60); RED CELL DISTRIBUTION WIDTH 14.4 % (11.5-14.5)
[2024-06-10 06:26] LABS: ALBUMIN 3.4 G/DL (3.4-5.0); ALBUMIN/GLOBULIN RATIO 0.8 (1.1-1.5); ALKALINE PHOSPHATASE 106 IU/L (46-116); ANION GAP 9 (8-16); ASPARTATE AMINO TRANSFERASE 23 U/L (10-37); BILIRUBIN,TOTAL 0.5 MG/DL (0.1-1.0); BLOOD UREA NITROGEN 13 MG/DL (7-18); BUN/CREATININE RATIO 41.9 (10.0-20.0); CALCIUM 9.4 MG/DL (8.5-10.1); CHLORIDE 103 MMOL/L (99-107); CREATININE 0.31 MG/DL (0.40-0.90); GLUCOSE 110 MG/DL (70-104); POTASSIUM 3.5 MMOL/L (3.5-5.1); SODIUM 140 MMOL/L (135-145); TOTAL CARBON DIOXIDE 27.9 MMOL/L (24-32); TOTAL PROTEIN 7.9 G/DL (6.4-8.2); eCRCL 226 ML/MIN; eGFR > 90 ML/MIN
[2024-06-10 06:27] LABS: ALANINE AMINOTRANSFERASE < 6 U/L (12-78)
[2024-06-10 07:30] VITALS: RESP 16
[2024-06-10 18:00] VITALS: BP 124/81; PULSE 96; RESP 16; TEMP 98.5; O2SAT 97
[2024-06-10 20:00] VITALS: RESP 16
[2024-06-11 06:00] VITALS: BP 125/85; PULSE 99; RESP 16; TEMP 98; O2SAT 98
[2024-06-11 08:00] VITALS: RESP 16; O2SAT 98
[2024-06-11 19:00] VITALS: BP 139/84; PULSE 113; RESP 16; TEMP 98.5; O2SAT 97
[2024-06-11 20:00] VITALS: RESP 16; O2SAT 97
[2024-06-12 06:00] VITALS: BP 129/92; PULSE 114; RESP 14; TEMP 98.4; O2SAT 97
[2024-06-12] MEDS: tizanidine 4mg tablet PEG SCH (15:11)
[2024-06-12 18:30] VITALS: BP 112/71; PULSE 100; RESP 20; TEMP 98.1; O2SAT 97
[2024-06-12 20:00] VITALS: RESP 20; O2SAT 97
[2024-06-12 22:00] VITALS: BP 116/71; PULSE 86; RESP 12; TEMP 98.9; O2SAT 98
[2024-06-13 07:00] VITALS: BP 122/68; PULSE 86; RESP 16; TEMP 98.6; O2SAT 99
[2024-06-13 07:38] VITALS: RESP 16
[2024-06-13 08:00] VITALS: RESP 16
[2024-06-13 19:00] VITALS: BP 116/82; PULSE 91; RESP 17; TEMP 97.5; O2SAT 100
[2024-06-13 20:00] VITALS: RESP 16
[2024-06-14 06:41] VITALS: BP 130/72; PULSE 90; RESP 14; TEMP 97; O2SAT 98
[2024-06-14 08:00] VITALS: RESP 16
[2024-06-14 19:00] VITALS: BP 137/85; PULSE 104; RESP 16; TEMP 97.6; O2SAT 96
[2024-06-14 20:00] VITALS: RESP 16
[2024-06-15 07:00] VITALS: BP 120/85; PULSE 91; RESP 17; TEMP 98.8; O2SAT 97
[2024-06-15 08:00] VITALS: RESP 16; O2SAT 97
[2024-06-15 19:00] VITALS: BP 107/47; PULSE 59; RESP 18; TEMP 97.7; O2SAT 97
[2024-06-15 20:00] VITALS: RESP 12; O2SAT 99
[2024-06-16 07:00] VITALS: BP 126/69; PULSE 83; RESP 16; TEMP 98.3; O2SAT 98
[2024-06-16 08:00] VITALS: RESP 16; O2SAT 98
[2024-06-16 10:18] VITALS: RESP 16
[2024-06-16 19:00] VITALS: BP 139/74; PULSE 81; RESP 18; TEMP 97.4; O2SAT 99
[2024-06-16 20:00] VITALS: RESP 18
[2024-06-17 06:25] LABS: ALBUMIN 3.5 G/DL (3.4-5.0); ALBUMIN/GLOBULIN RATIO 0.8 (1.1-1.5); ALKALINE PHOSPHATASE 111 IU/L (46-116); ANION GAP 6 (8-16); ASPARTATE AMINO TRANSFERASE 23 U/L (10-37); BILIRUBIN,TOTAL 0.3 MG/DL (0.1-1.0); BLOOD UREA NITROGEN 11 MG/DL (7-18); BUN/CREATININE RATIO 22.9 (10.0-20.0); CALCIUM 8.8 MG/DL (8.5-10.1); CHLORIDE 102 MMOL/L (99-107); CREATININE 0.48 MG/DL (0.40-0.90); GLUCOSE 100 MG/DL (70-104); POTASSIUM 3.7 MMOL/L (3.5-5.1); SODIUM 140 MMOL/L (135-145); TOTAL CARBON DIOXIDE 31.7 MMOL/L (24-32); TOTAL PROTEIN 7.9 G/DL (6.4-8.2); eCRCL 112 ML/MIN; eGFR > 90 ML/MIN
[2024-06-17 06:31] LABS: BASOPHILS % (AUTO) 0.3 % (0-1); EOSINOPHILS # (AUTO) 0.3 X10'3 (0-0.9); EOSINOPHILS % (AUTO) 3.6 % (0-6); HEMATOCRIT 39.7 % (35.0-45.0); HEMOGLOBIN 13.3 g/dl (12.0-16.0); LYMPHOCYTES # (AUTO) 1.9 X10'3 (1.1-4.8); LYMPHOCYTES % (AUTO) 21.1 % (21-51); MEAN CORPUSCULAR HEMOGLOBIN 26.9 PG (27.0-31.0); MEAN CORPUSCULAR HGB CONC 33.4 g/dL (33.0-36.5); MEAN CORPUSCULAR VOLUME 80.6 FL (78-98); MEAN PLATELET VOLUME 9.8 FL (7.4-10.4); MONOCYTES # (AUTO) 0.6 X10'3 (0-0.9); MONOCYTES % (AUTO) 6.2 % (2-12); NEUTROPHILS # (AUTO) 6.2 X10'3 (1.8-7.7); NEUTROPHILS % (AUTO) 68.8 % (42-75); PLATELET COUNT 253 X10'3 (140-440); RED BLOOD COUNT 4.92 X10'6 (4.20-5.60); RED CELL DISTRIBUTION WIDTH 13.9 % (11.5-14.5)
[2024-06-17 06:42] LABS: ALANINE AMINOTRANSFERASE < 6 U/L (12-78)
[2024-06-17 07:00] VITALS: BP 121/86; PULSE 76; RESP 12; TEMP 98.3; O2SAT 94
[2024-06-17 08:00] VITALS: RESP 16; O2SAT 96
[2024-06-17 18:00] VITALS: BP 134/91; PULSE 92; RESP 14; TEMP 97.7; O2SAT 98
[2024-06-17 20:00] VITALS: RESP 14; RESP 18; O2SAT 98
[2024-06-18 06:00] VITALS: BP 139/80; PULSE 87; RESP 18; TEMP 98; O2SAT 99
[2024-06-18 09:00] VITALS: RESP 18; O2SAT 99
[2024-06-18 10:46] VITALS: RESP 16
[2024-06-18 18:00] VITALS: BP 135/94; PULSE 107; RESP 16; TEMP 98.3; O2SAT 99
[2024-06-18 19:00] VITALS: RESP 16; O2SAT 99
[2024-06-19 06:00] VITALS: BP 134/78; PULSE 81; RESP 20; TEMP 97.8; O2SAT 100
[2024-06-19 22:00] VITALS: BP 140/89; PULSE 89; RESP 19; TEMP 97; O2SAT 97
[2024-06-20 07:33] VITALS: BP 127/84; PULSE 92; RESP 20; TEMP 98; O2SAT 95
[2024-06-20 08:00] VITALS: RESP 16
[2024-06-20 19:15] VITALS: RESP 16
[2024-06-20 22:00] VITALS: BP 148/85; PULSE 97; RESP 16; TEMP 97.1; O2SAT 93
[2024-06-21 06:00] VITALS: BP 127/65; PULSE 75; RESP 14; TEMP 97.9; O2SAT 98
[2024-06-21 06:11] VITALS: BP 156/99; PULSE 87
[2024-06-21 07:00] VITALS: RESP 18
[2024-06-21 18:00] VITALS: BP 113/62; PULSE 96; RESP 14; TEMP 97.3; O2SAT 97
[2024-06-21 19:00] VITALS: RESP 14; O2SAT 97
[2024-06-22 07:00] VITALS: BP 136/86; PULSE 94; RESP 16; TEMP 97.1; O2SAT 98
[2024-06-22 19:00] VITALS: BP 141/97; PULSE 69; RESP 16; TEMP 97.4; O2SAT 94
[2024-06-23 06:00] VITALS: BP 139/81; PULSE 94; RESP 18; TEMP 98.3; O2SAT 98
[2024-06-23 07:00] VITALS: RESP 16; O2SAT 98
[2024-06-23 19:00] VITALS: BP 143/90; PULSE 114; RESP 12; TEMP 98.5; O2SAT 94
[2024-06-24 06:11] LABS: BASOPHILS % (AUTO) 0.3 % (0-1); EOSINOPHILS # (AUTO) 0.1 X10'3 (0-0.9); HEMATOCRIT 42.8 % (35.0-45.0); HEMOGLOBIN 13.9 g/dl (12.0-16.0); LYMPHOCYTES # (AUTO) 1.8 X10'3 (1.1-4.8); LYMPHOCYTES % (AUTO) 13.8 % (21-51); MEAN CORPUSCULAR HEMOGLOBIN 26.1 PG (27.0-31.0); MEAN CORPUSCULAR HGB CONC 32.4 g/dL (33.0-36.5); MEAN CORPUSCULAR VOLUME 80.6 FL (78-98); MEAN PLATELET VOLUME 9.6 FL (7.4-10.4); MONOCYTES # (AUTO) 0.9 X10'3 (0-0.9); MONOCYTES % (AUTO) 6.8 % (2-12); NEUTROPHILS # (AUTO) 10.2 X10'3 (1.8-7.7); NEUTROPHILS % (AUTO) 78.1 % (42-75); PLATELET COUNT 260 X10'3 (140-440); RED BLOOD COUNT 5.31 X10'6 (4.20-5.60); RED CELL DISTRIBUTION WIDTH 14.2 % (11.5-14.5); WHITE BLOOD COUNT 13.1 X10'3 (4.5-11.0)
[2024-06-24 06:23] LABS: ALANINE AMINOTRANSFERASE 11 U/L (12-78); ALBUMIN 3.5 G/DL (3.4-5.0); ALBUMIN/GLOBULIN RATIO 0.8 (1.1-1.5); ALKALINE PHOSPHATASE 115 IU/L (46-116); ANION GAP 8 (8-16); ASPARTATE AMINO TRANSFERASE 22 U/L (10-37); BILIRUBIN,TOTAL 0.5 MG/DL (0.1-1.0); BLOOD UREA NITROGEN 11 MG/DL (7-18); BUN/CREATININE RATIO 30.6 (10.0-20.0); CALCIUM 9.3 MG/DL (8.5-10.1); CHLORIDE 103 MMOL/L (99-107); CREATININE 0.36 MG/DL (0.40-0.90); GLUCOSE 92 MG/DL (70-104); POTASSIUM 3.7 MMOL/L (3.5-5.1); SODIUM 140 MMOL/L (135-145); TOTAL CARBON DIOXIDE 28.6 MMOL/L (24-32); TOTAL PROTEIN 7.8 G/DL (6.4-8.2); eCRCL 154 ML/MIN; eGFR > 90 ML/MIN
[2024-06-24 07:00] VITALS: RESP 16
[2024-06-24 11:00] VITALS: BP 132/85; PULSE 94; RESP 24; TEMP 98.1; O2SAT 100
[2024-06-24] MEDS ORDERED: scopolamine 1MG/72H patch 1 PATCH PATCH.TD.3 TD SCH (14:45)
[2024-06-24] MEDS: glycopyrrolate 1mg tablet PO SCH (16:59)
[2024-06-24] MEDS: levoFLOXACIN 750MG TABLET PO SCH (16:59)
[2024-06-24 19:00] VITALS: RESP 16
[2024-06-24 22:00] VITALS: BP 106/91; PULSE 106; RESP 16; TEMP 98.1; O2SAT 98
[2024-06-25 09:00] VITALS: RESP 16; O2SAT 98
[2024-06-25 10:00] VITALS: BP 138/91; PULSE 88; RESP 18; TEMP 98.4; O2SAT 96
[2024-06-25 19:59] VITALS: BP 120/77; PULSE 85; RESP 14; RESP 16; TEMP 98.3; O2SAT 100
[2024-06-26 06:00] VITALS: BP 156/88; PULSE 92; RESP 16; TEMP 97.7; O2SAT 99
[2024-06-26 09:00] VITALS: RESP 16; O2SAT 95
[2024-06-26 19:00] VITALS: BP 149/78; PULSE 104; RESP 16; RESP 20; TEMP 98.1; O2SAT 20; O2SAT 96
[2024-06-26 19:30] VITALS: O2SAT 84
[2024-06-26 19:35] VITALS: O2SAT 96
[2024-06-26] MEDS: hyoscyamine 0.125mg TAB.SUBL SL PRN (21:27)
[2024-06-26 22:00] VITALS: BP 121/76; PULSE 94; RESP 16; TEMP 97.8; O2SAT 99
[2024-06-27 06:00] VITALS: BP 143/85; PULSE 106; RESP 16; TEMP 98.1; O2SAT 100
[2024-06-27 07:59] VITALS: RESP 16; O2SAT 100
[2024-06-27 15:05] LABS: BASOPHILS % (AUTO) 0.5 % (0-1); EOSINOPHILS # (AUTO) 0.1 X10'3 (0-0.9); EOSINOPHILS % (AUTO) 0.6 % (0-6); HEMATOCRIT 41.5 % (35.0-45.0); HEMOGLOBIN 13.6 g/dl (12.0-16.0); LYMPHOCYTES # (AUTO) 1.6 X10'3 (1.1-4.8); LYMPHOCYTES % (AUTO) 17.3 % (21-51); MEAN CORPUSCULAR HEMOGLOBIN 26.6 PG (27.0-31.0); MEAN CORPUSCULAR HGB CONC 32.8 g/dL (33.0-36.5); MEAN CORPUSCULAR VOLUME 80.9 FL (78-98); MEAN PLATELET VOLUME 9.2 FL (7.4-10.4); MONOCYTES # (AUTO) 0.6 X10'3 (0-0.9); MONOCYTES % (AUTO) 6.8 % (2-12); NEUTROPHILS % (AUTO) 74.8 % (42-75); PLATELET COUNT 293 X10'3 (140-440); RED BLOOD COUNT 5.13 X10'6 (4.20-5.60); RED CELL DISTRIBUTION WIDTH 14.1 % (11.5-14.5); WHITE BLOOD COUNT 9.4 X10'3 (4.5-11.0)
[2024-06-27 15:24] LABS: ALBUMIN 3.2 G/DL (3.4-5.0); ALBUMIN/GLOBULIN RATIO 0.7 (1.1-1.5); ALKALINE PHOSPHATASE 108 IU/L (46-116); ANION GAP 9 (8-16); ASPARTATE AMINO TRANSFERASE 23 U/L (10-37); BILIRUBIN,TOTAL 0.5 MG/DL (0.1-1.0); BLOOD UREA NITROGEN 12 MG/DL (7-18); CALCIUM 9.2 MG/DL (8.5-10.1); CHLORIDE 102 MMOL/L (99-107); CREATININE 0.48 MG/DL (0.40-0.90); GLUCOSE 117 MG/DL (70-104); POTASSIUM 3.7 MMOL/L (3.5-5.1); SODIUM 139 MMOL/L (135-145); TOTAL CARBON DIOXIDE 28.1 MMOL/L (24-32); TOTAL PROTEIN 7.5 G/DL (6.4-8.2); eCRCL 118 ML/MIN; eGFR > 90 ML/MIN
[2024-06-27 15:28] LABS: ALANINE AMINOTRANSFERASE < 6 U/L (12-78)
[2024-06-27 19:00] VITALS: BP 132/86; PULSE 104; RESP 16; RESP 18; TEMP 99.6; O2SAT 100
[2024-06-28 06:56] VITALS: BP 142/81; PULSE 89; RESP 14; TEMP 97.9; O2SAT 99
[2024-06-28 07:59] VITALS: RESP 14; O2SAT 99
[2024-06-28 19:00] VITALS: BP 138/80; PULSE 93; RESP 16; TEMP 98.1; O2SAT 98; O2SAT 99
[2024-06-29 10:00] VITALS: RESP 16; O2SAT 97
[2024-06-29 12:11] VITALS: BP 143/82; PULSE 81; RESP 16; TEMP 98.2; O2SAT 95
[2024-06-29 19:00] VITALS: BP 128/87; PULSE 96; RESP 16; TEMP 98.1; O2SAT 97
[2024-06-29 20:00] VITALS: RESP 16; O2SAT 97
[2024-06-30 06:00] VITALS: BP 127/76; PULSE 103; RESP 16; TEMP 99.1; O2SAT 97
[2024-06-30 11:25] VITALS: RESP 14; O2SAT 99
[2024-06-30 18:00] VITALS: BP 131/70; PULSE 107; RESP 20; TEMP 98.3; O2SAT 98
[2024-07-01 06:00] VITALS: BP 128/94; PULSE 103; RESP 16; TEMP 98.3; O2SAT 97
[2024-07-01 06:25] LABS: BASOPHILS % (AUTO) 0.6 % (0-1); EOSINOPHILS # (AUTO) 0.2 X10'3 (0-0.9); EOSINOPHILS % (AUTO) 2.1 % (0-6); HEMOGLOBIN 13.2 g/dl (12.0-16.0); LYMPHOCYTES # (AUTO) 1.9 X10'3 (1.1-4.8); LYMPHOCYTES % (AUTO) 26.4 % (21-51); MEAN CORPUSCULAR HEMOGLOBIN 26.6 PG (27.0-31.0); MEAN CORPUSCULAR HGB CONC 33.1 g/dL (33.0-36.5); MEAN CORPUSCULAR VOLUME 80.2 FL (78-98); MEAN PLATELET VOLUME 9.5 FL (7.4-10.4); MONOCYTES # (AUTO) 0.8 X10'3 (0-0.9); MONOCYTES % (AUTO) 10.4 % (2-12); NEUTROPHILS # (AUTO) 4.4 X10'3 (1.8-7.7); NEUTROPHILS % (AUTO) 60.5 % (42-75); PLATELET COUNT 239 X10'3 (140-440); RED BLOOD COUNT 4.99 X10'6 (4.20-5.60); RED CELL DISTRIBUTION WIDTH 14.1 % (11.5-14.5); WHITE BLOOD COUNT 7.3 X10'3 (4.5-11.0)
[2024-07-01 06:26] LABS: ALBUMIN 3.3 G/DL (3.4-5.0); ALBUMIN/GLOBULIN RATIO 0.8 (1.1-1.5); ALKALINE PHOSPHATASE 104 IU/L (46-116); ANION GAP 5 (8-16); ASPARTATE AMINO TRANSFERASE 25 U/L (10-37); BILIRUBIN,TOTAL 0.4 MG/DL (0.1-1.0); BLOOD UREA NITROGEN 13 MG/DL (7-18); BUN/CREATININE RATIO 33.3 (10.0-20.0); CALCIUM 8.8 MG/DL (8.5-10.1); CHLORIDE 104 MMOL/L (99-107); CREATININE 0.39 MG/DL (0.40-0.90); GLUCOSE 97 MG/DL (70-104); POTASSIUM 3.5 MMOL/L (3.5-5.1); SODIUM 141 MMOL/L (135-145); TOTAL PROTEIN 7.5 G/DL (6.4-8.2); eCRCL 136 ML/MIN; eGFR > 90 ML/MIN
[2024-07-01 06:44] LABS: ALANINE AMINOTRANSFERASE < 6 U/L (12-78)
[2024-07-01 08:45] VITALS: RESP 16; O2SAT 96
[2024-07-01 19:00] VITALS: BP 128/76; PULSE 96; RESP 18; TEMP 98.5; O2SAT 98
[2024-07-02 06:00] VITALS: BP 130/80; PULSE 95; RESP 20; TEMP 98.1; O2SAT 96
[2024-07-02 18:00] VITALS: BP 129/81; PULSE 84; RESP 22; TEMP 97.3; O2SAT 99
[2024-07-02 19:50] VITALS: RESP 22; O2SAT 99
[2024-07-02 22:00] VITALS: BP 127/69; PULSE 84; RESP 16; TEMP 97.6; O2SAT 100
[2024-07-03 06:00] VITALS: BP 135/84; PULSE 89; RESP 14; TEMP 98; O2SAT 95
[2024-07-03 07:00] VITALS: RESP 14; O2SAT 95
[2024-07-03 18:00] VITALS: BP 140/80; PULSE 82; RESP 16; TEMP 97.8; O2SAT 100
[2024-07-03 19:15] VITALS: RESP 14; O2SAT 95
[2024-07-03 22:00] VITALS: BP 35/80; PULSE 110; RESP 20; TEMP 98.7; O2SAT 98
[2024-07-04 07:00] VITALS: RESP 13; O2SAT 96
[2024-07-04 08:00] VITALS: BP 141/86; PULSE 99; RESP 16; TEMP 99.1; O2SAT 100
[2024-07-04 19:00] VITALS: BP 135/87; PULSE 72; RESP 13; RESP 17; TEMP 97.9; O2SAT 96; O2SAT 98
[2024-07-05 06:00] VITALS: BP 118/77; PULSE 85; RESP 13; TEMP 97.4; O2SAT 100
[2024-07-05 09:30] VITALS: RESP 16
[2024-07-05 10:00] VITALS: BP 98/51; PULSE 62; RESP 16; TEMP 98.7; O2SAT 97
[2024-07-05 19:00] VITALS: BP 136/72; PULSE 100; RESP 16; TEMP 98.3; O2SAT 98
[2024-07-05 20:00] VITALS: RESP 16
[2024-07-06 07:00] VITALS: BP 115/77; PULSE 90; RESP 16; TEMP 97; O2SAT 99
[2024-07-06 19:00] VITALS: BP 113/73; PULSE 91; RESP 18; TEMP 98.8; O2SAT 98
[2024-07-07 06:00] VITALS: BP 133/81; PULSE 105; RESP 18; TEMP 97.4; O2SAT 93
[2024-07-07 07:00] VITALS: RESP 16; O2SAT 93
[2024-07-07 19:00] VITALS: BP 113/70; PULSE 101; RESP 16; TEMP 98.1; O2SAT 97
[2024-07-08 06:00] VITALS: BP 120/69; PULSE 66; RESP 12; TEMP 98.3; O2SAT 95
[2024-07-08 06:25] LABS: BASOPHILS % (AUTO) 0.4 % (0-1); EOSINOPHILS # (AUTO) 0.4 X10'3 (0-0.9); EOSINOPHILS % (AUTO) 5.5 % (0-6); HEMATOCRIT 41.2 % (35.0-45.0); HEMOGLOBIN 13.6 g/dl (12.0-16.0); LYMPHOCYTES # (AUTO) 1.7 X10'3 (1.1-4.8); LYMPHOCYTES % (AUTO) 24.9 % (21-51); MEAN CORPUSCULAR HEMOGLOBIN 26.4 PG (27.0-31.0); MEAN CORPUSCULAR HGB CONC 32.9 g/dL (33.0-36.5); MEAN CORPUSCULAR VOLUME 80.2 FL (78-98); MEAN PLATELET VOLUME 9.4 FL (7.4-10.4); MONOCYTES # (AUTO) 0.7 X10'3 (0-0.9); MONOCYTES % (AUTO) 9.6 % (2-12); NEUTROPHILS # (AUTO) 4.2 X10'3 (1.8-7.7); NEUTROPHILS % (AUTO) 59.6 % (42-75); PLATELET COUNT 228 X10'3 (140-440); RED BLOOD COUNT 5.13 X10'6 (4.20-5.60); RED CELL DISTRIBUTION WIDTH 13.8 % (11.5-14.5)
[2024-07-08 06:34] LABS: ALBUMIN 3.3 G/DL (3.4-5.0); ALBUMIN/GLOBULIN RATIO 0.8 (1.1-1.5); ALKALINE PHOSPHATASE 108 IU/L (46-116); ANION GAP 6 (8-16); ASPARTATE AMINO TRANSFERASE 20 U/L (10-37); BILIRUBIN,TOTAL 0.4 MG/DL (0.1-1.0); BLOOD UREA NITROGEN 12 MG/DL (7-18); BUN/CREATININE RATIO 30.8 (10.0-20.0); CALCIUM 9.1 MG/DL (8.5-10.1); CHLORIDE 104 MMOL/L (99-107); CREATININE 0.39 MG/DL (0.40-0.90); GLUCOSE 76 MG/DL (70-104); POTASSIUM 3.6 MMOL/L (3.5-5.1); SODIUM 141 MMOL/L (135-145); TOTAL CARBON DIOXIDE 31.2 MMOL/L (24-32); TOTAL PROTEIN 7.5 G/DL (6.4-8.2); eCRCL 136 ML/MIN; eGFR > 90 ML/MIN
[2024-07-08 07:01] LABS: ALANINE AMINOTRANSFERASE < 6 U/L (12-78)
[2024-07-08 07:48] VITALS: RESP 12; O2SAT 95
[2024-07-08 19:00] VITALS: BP 144/91; PULSE 115; RESP 18; RESP 20; TEMP 98.9; O2SAT 97
[2024-07-09 06:00] VITALS: BP 122/79; PULSE 82; RESP 16; TEMP 98; O2SAT 99
[2024-07-09 07:30] VITALS: RESP 16; O2SAT 99
[2024-07-09 18:00] VITALS: BP 125/81; PULSE 92; RESP 18; TEMP 98.3; O2SAT 98
[2024-07-09 19:15] VITALS: RESP 16; O2SAT 98
[2024-07-10 06:00] VITALS: BP 148/54; PULSE 100; RESP 16; TEMP 98.8; O2SAT 16
[2024-07-10 07:00] VITALS: RESP 16
[2024-07-10 19:00] VITALS: BP 128/85; PULSE 88; RESP 18; TEMP 97.2; O2SAT 96
[2024-07-11 06:00] VITALS: BP 135/86; PULSE 89; RESP 14; TEMP 98.3; O2SAT 100
[2024-07-11 07:00] VITALS: RESP 14; O2SAT 100
[2024-07-11 19:00] VITALS: BP 150/94; PULSE 50; RESP 17; TEMP 97.8; O2SAT 93
[2024-07-11 20:00] VITALS: RESP 16; O2SAT 95
[2024-07-12 07:20] VITALS: RESP 16
[2024-07-12 07:23] VITALS: BP 112/65; PULSE 89; RESP 16; TEMP 97.8
[2024-07-12 19:00] VITALS: BP 127/96; PULSE 88; RESP 16; TEMP 97.8; O2SAT 96
[2024-07-12 20:00] VITALS: RESP 16; O2SAT 96
[2024-07-13 06:00] VITALS: BP 143/69; PULSE 95; RESP 16; TEMP 97.9; O2SAT 99
[2024-07-13] MEDS: lansoprazole 15mg solutab PEG SCH (07:24)
[2024-07-13 07:39] VITALS: RESP 16
[2024-07-13 18:00] VITALS: BP 127/93; PULSE 104; RESP 16; TEMP 98.7; O2SAT 96
[2024-07-13 19:00] VITALS: RESP 16; O2SAT 96
[2024-07-14 09:51] VITALS: BP 92/58; PULSE 97; RESP 17; TEMP 98.7; O2SAT 100
[2024-07-14 18:00] VITALS: BP 144/93; PULSE 104; RESP 23; TEMP 98.1; O2SAT 94
[2024-07-14 19:00] VITALS: RESP 22; O2SAT 94
[2024-07-15 10:00] VITALS: BP 126/67; PULSE 85; RESP 12; TEMP 98.5; O2SAT 99
[2024-07-15 18:40] VITALS: BP 134/84; PULSE 103; RESP 16; RESP 18; TEMP 99.3; O2SAT 94
[2024-07-16 06:00] VITALS: BP 128/90; PULSE 90; RESP 16; TEMP 98.8; O2SAT 94
[2024-07-16 08:30] VITALS: RESP 16; O2SAT 96
[2024-07-16 19:00] VITALS: BP 121/81; PULSE 86; RESP 18; TEMP 99; O2SAT 99
[2024-07-16 19:50] VITALS: RESP 18
[2024-07-17 06:00] VITALS: BP 147/95; PULSE 104; RESP 16; TEMP 96.8; O2SAT 99
[2024-07-17 08:45] VITALS: RESP 16; O2SAT 98
[2024-07-17 19:00] VITALS: BP 113/70; PULSE 101; RESP 16; TEMP 97.8; O2SAT 98
[2024-07-17 19:50] VITALS: RESP 16
[2024-07-18 07:00] VITALS: RESP 18; O2SAT 97
[2024-07-18 10:00] VITALS: BP 146/93; PULSE 107; RESP 18; TEMP 99; O2SAT 97
[2024-07-18] MEDS: neomy sulf/bacitrac zn/polymixin b oint 14.2 gm tube TP SCH (16:34)
[2024-07-18 19:00] VITALS: BP 113/70; PULSE 60; RESP 16; TEMP 97.6; O2SAT 97
[2024-07-18 19:30] VITALS: RESP 18
[2024-07-19 06:00] VITALS: BP 138/75; PULSE 82; RESP 14; TEMP 98.5; O2SAT 98
[2024-07-19 07:00] VITALS: RESP 14; O2SAT 98
[2024-07-19 19:00] VITALS: BP 119/81; PULSE 87; RESP 17; TEMP 97.7; O2SAT 95; O2SAT 97
[2024-07-20 06:00] VITALS: BP 131/90; PULSE 81; RESP 14; TEMP 97.8; O2SAT 96
[2024-07-20 07:00] VITALS: RESP 16; O2SAT 96
[2024-07-20 19:00] VITALS: RESP 15; O2SAT 95
[2024-07-21 06:55] VITALS: BP 123/75; PULSE 89; RESP 16; TEMP 99.1; O2SAT 97
[2024-07-21 07:59] VITALS: RESP 16; O2SAT 97
[2024-07-21 18:30] VITALS: BP 150/93; PULSE 89; RESP 15; TEMP 97.7; O2SAT 96
[2024-07-21 19:00] VITALS: RESP 15; O2SAT 100
[2024-07-22 06:00] VITALS: BP 117/69; PULSE 80; RESP 18; TEMP 98; O2SAT 100
[2024-07-22 07:00] VITALS: RESP 18; O2SAT 100
[2024-07-22 19:00] VITALS: BP 128/85; PULSE 96; RESP 20; TEMP 97.2; O2SAT 98
[2024-07-23 06:00] VITALS: BP 132/82; PULSE 100; RESP 17; TEMP 100; O2SAT 99
[2024-07-23 07:45] VITALS: RESP 17; O2SAT 99
[2024-07-23 19:00] VITALS: BP 123/80; PULSE 98; RESP 18; TEMP 99.9; O2SAT 94
[2024-07-24 06:00] VITALS: BP 135/82; PULSE 86; RESP 16; TEMP 98; O2SAT 97
[2024-07-24 08:45] VITALS: RESP 16; O2SAT 95
[2024-07-24 19:00] VITALS: BP 142/92; PULSE 102; RESP 16; TEMP 98.3; O2SAT 98
[2024-07-25 06:00] VITALS: BP 136/70; PULSE 95; RESP 14; TEMP 98.5; O2SAT 97
[2024-07-25 09:00] VITALS: RESP 16; O2SAT 95
[2024-07-25 19:00] VITALS: BP 137/87; PULSE 99; RESP 14; TEMP 100.2; O2SAT 95; O2SAT 96
[2024-07-25 23:00] VITALS: TEMP 99.6
[2024-07-26 06:00] VITALS: BP 112/70; PULSE 75; RESP 16; TEMP 98.9; O2SAT 97
[2024-07-26] MEDS: scopolamine 1MG/72H patch 1 PATCH PATCH.TD.3 TD SCH (16:42)
[2024-07-26 19:00] VITALS: BP 113/74; PULSE 69; RESP 17; TEMP 97.9; O2SAT 96
[2024-07-27 06:00] VITALS: BP_SYST 126; BP_SYST 136; BP_DIAS 68; BP_DIAS 90; PULSE 74; PULSE 75; RESP 12; RESP 14; TEMP 97.8; TEMP 99.4; O2SAT 100; O2SAT 95
[2024-07-27 17:12] LABS: BASOPHILS # (AUTO) 0.1 X10'3 (0-0.2); BASOPHILS % (AUTO) 0.8 % (0-1); EOSINOPHILS # (AUTO) 0.1 X10'3 (0-0.9); HEMATOCRIT 44.3 % (35.0-45.0); HEMOGLOBIN 14.3 g/dl (12.0-16.0); LYMPHOCYTES # (AUTO) 2.3 X10'3 (1.1-4.8); LYMPHOCYTES % (AUTO) 30.5 % (21-51); MEAN CORPUSCULAR HEMOGLOBIN 26.4 PG (27.0-31.0); MEAN CORPUSCULAR HGB CONC 32.4 g/dL (33.0-36.5); MEAN CORPUSCULAR VOLUME 81.7 FL (78-98); MEAN PLATELET VOLUME 9.1 FL (7.4-10.4); MONOCYTES # (AUTO) 0.8 X10'3 (0-0.9); MONOCYTES % (AUTO) 10.3 % (2-12); NEUTROPHILS # (AUTO) 4.2 X10'3 (1.8-7.7); NEUTROPHILS % (AUTO) 56.4 % (42-75); PLATELET COUNT 225 X10'3 (140-440); RED BLOOD COUNT 5.43 X10'6 (4.20-5.60); RED CELL DISTRIBUTION WIDTH 13.4 % (11.5-14.5); WHITE BLOOD COUNT 7.5 X10'3 (4.5-11.0)
[2024-07-27 17:22] LABS: ALBUMIN 3.6 G/DL (3.4-5.0); ANION GAP 7 (8-16); BLOOD UREA NITROGEN 11 MG/DL (7-18); BUN/CREATININE RATIO 26.2 (10.0-20.0); CALCIUM 9.4 MG/DL (8.5-10.1); CHLORIDE 104 MMOL/L (99-107); CREATININE 0.42 MG/DL (0.40-0.90); GLUCOSE 99 MG/DL (70-104); POTASSIUM 3.8 MMOL/L (3.5-5.1); SODIUM 140 MMOL/L (135-145); TOTAL CARBON DIOXIDE 28.9 MMOL/L (24-32); eCRCL 129 ML/MIN; eGFR > 90 ML/MIN
[2024-07-27 19:00] VITALS: BP 126/78; PULSE 92; RESP 16; TEMP 97.9; O2SAT 92
[2024-07-27 23:43] LABS: BILIRUBIN,URINE NEGATIVE (Neg); CLARITY,URINE CLEAR (Clear); COLOR,URINE YELLOW (Yellow); GLUCOSE, URINE NEGATIVE (Neg); KETONES,URINE NEGATIVE (Neg); LEUKOCYTE ESTERASE ,URINE NEGATIVE (Neg); NITRITES, URINE NEGATIVE (Neg); OCCULT BLOOD,URINE NEGATIVE (Neg); PROTEIN,URINE NEGATIVE (Neg); UROBILINOGEN,URINE 0.2 E.U/dL (0.2-1.0)
[2024-07-27 23:52] LABS: UA COLLECTION TYPE NON-SPECIFIED
[2024-07-28 06:00] VITALS: BP 141/86; PULSE 83; RESP 19; TEMP 98.6; O2SAT 98
[2024-07-28 19:00] VITALS: BP 133/88; PULSE 94; RESP 12; TEMP 98.2; O2SAT 93
[2024-07-29 06:00] VITALS: BP 145/93; PULSE 85; RESP 16; TEMP 97.9; O2SAT 99
[2024-07-29 07:00] VITALS: RESP 16; O2SAT 99
[2024-07-29 18:00] VITALS: BP 107/52; PULSE 102; RESP 14; TEMP 97.7; O2SAT 95
[2024-07-29 19:00] VITALS: BP 107/52; PULSE 102; RESP 14; TEMP 97.7; O2SAT 95
[2024-07-30 07:08] VITALS: BP 135/88; PULSE 107; RESP 20; TEMP 98.9; O2SAT 97
[2024-07-30 11:57] VITALS: RESP 16
[2024-07-30 18:50] VITALS: BP 123/86; PULSE 89; RESP 17; TEMP 99; O2SAT 98
[2024-07-31 06:00] VITALS: BP 128/85; PULSE 80; RESP 16; TEMP 97.8; O2SAT 96
[2024-07-31 07:00] VITALS: RESP 16
[2024-07-31 18:00] VITALS: BP 128/66; PULSE 95; RESP 14; TEMP 97.6; O2SAT 97
[2024-07-31 19:00] VITALS: RESP 16
[2024-08-01] MEDS: acetaminophen 325mg/10.15ml oral unit dose solution PO PRN (05:49)
[2024-08-01 06:00] VITALS: BP 132/76; PULSE 89; RESP 19; TEMP 100; O2SAT 94
[2024-08-01 19:00] VITALS: BP 151/85; PULSE 72; RESP 17; TEMP 97.9; O2SAT 100
[2024-08-01 22:00] VITALS: BP 123/79; PULSE 103; RESP 14; RESP 16; TEMP 98.9; O2SAT 94
[2024-08-02 06:00] VITALS: BP 142/90; PULSE 92; RESP 14; TEMP 98.4; O2SAT 97
[2024-08-02 08:30] VITALS: RESP 16
[2024-08-02 19:00] VITALS: BP 138/77; PULSE 98; RESP 16; RESP 18; TEMP 99.8; O2SAT 95
[2024-08-03 06:00] VITALS: BP 140/88; PULSE 88; RESP 14; TEMP 99; O2SAT 97
[2024-08-03 08:00] VITALS: RESP 16
[2024-08-03 19:00] VITALS: BP 120/75; PULSE 65; RESP 17; TEMP 97.8; O2SAT 97
[2024-08-04 07:09] VITALS: BP 112/70; PULSE 88; RESP 16; TEMP 98.8; O2SAT 100
[2024-08-04 07:20] VITALS: RESP 16
[2024-08-04 19:00] VITALS: BP 111/71; PULSE 58; RESP 22; TEMP 98.3; O2SAT 98
[2024-08-05 06:00] VITALS: BP 112/78; PULSE 76; RESP 18; TEMP 98; O2SAT 97
[2024-08-05 07:00] VITALS: RESP 16; O2SAT 97
[2024-08-05 19:00] VITALS: BP 127/76; PULSE 81; RESP 22; TEMP 97.7; O2SAT 97
[2024-08-05 20:00] VITALS: RESP 22; O2SAT 97
[2024-08-06 10:00] VITALS: BP 146/93; PULSE 94; RESP 18; TEMP 98.7; O2SAT 96
[2024-08-06 19:00] VITALS: BP 131/84; PULSE 91; RESP 18; TEMP 98.2; O2SAT 98
[2024-08-07 07:00] VITALS: RESP 20
[2024-08-07 07:21] VITALS: BP 124/85; PULSE 76; RESP 20; TEMP 98.5; O2SAT 97
[2024-08-07] MEDS: glycopyrrolate 1mg tablet PEG SCH (09:02)
[2024-08-07 18:00] VITALS: BP 122/73; PULSE 94; RESP 18; TEMP 99.1; O2SAT 98
[2024-08-07 19:40] VITALS: RESP 18
[2024-08-07] MEDS ORDERED: acetaminophen 325mg/10.15ml oral unit dose solution PEG PRN (20:46)
[2024-08-07] MEDS: docusate sodium 100mg/10ml UD cup PEG SCH (20:50)
[2024-08-07 22:00] VITALS: BP 108/79; PULSE 93; RESP 13; TEMP 98.5; O2SAT 95
[2024-08-08 07:00] VITALS: BP 119/75; PULSE 88; RESP 14; RESP 16; TEMP 97.6; O2SAT 94
[2024-08-08 18:00] VITALS: BP 111/86; PULSE 79; RESP 17; TEMP 97.9; O2SAT 94
[2024-08-09 06:23] VITALS: BP 133/76; PULSE 92; RESP 20; TEMP 99.3; O2SAT 97
[2024-08-09 07:00] VITALS: RESP 16; O2SAT 98
[2024-08-09 18:00] VITALS: BP 110/53; PULSE 87; RESP 16; TEMP 99.7; O2SAT 98
[2024-08-10 06:00] VITALS: BP 127/87; PULSE 76; RESP 14; TEMP 98.6; O2SAT 93
[2024-08-10 07:00] VITALS: RESP 16
[2024-08-10 10:00] VITALS: BP 122/74; PULSE 70; RESP 15; TEMP 98; O2SAT 95
[2024-08-10 19:00] VITALS: BP 110/53; PULSE 87; RESP 16; TEMP 99.7; O2SAT 98
[2024-08-11 06:00] VITALS: BP 139/76; PULSE 66; RESP 16; TEMP 98; O2SAT 94
== END 2024-08-11 12:20 | DRG 720 ==
LOC: ER 13:33 → ED HOLD 15:37 → UNDOADMIN 15:37 → ED HOLD 16:40 → CICU 2S 17:00 → ED HOLD 17:00 → PCU 3S 01-07 21:45 → SUR 3N 01-20 23:39
PROVIDERS: ADMIT Internal Medicine Critical Care Medicine; ATTEND Internal Medicine Critical Care Medicine
PROC: 05HM33Z Insertion of Infusion Device into Right Internal Jugular Vein, Percutaneous Approach (ICD-10-PCS; 2024-01-05)
PROC: B543ZZA Ultrasonography of Right Jugular Veins, Guidance (ICD-10-PCS; 2024-01-05)
PROC: 5A1945Z Respiratory Ventilation, 24-96 Consecutive Hours (ICD-10-PCS; 2024-01-05)
PROC: 0BH17EZ Insertion of Endotracheal Airway into Trachea, Via Natural or Artificial Opening (ICD-10-PCS; 2024-01-05)
PROC: 4A00X4Z Measurement of Central Nervous Electrical Activity, External Approach (ICD-10-PCS; 2024-01-06)
PROC: 4A00X4Z Measurement of Central Nervous Electrical Activity, External Approach (ICD-10-PCS; 2024-03-16)
PROC: 4A00X4Z Measurement of Central Nervous Electrical Activity, External Approach (ICD-10-PCS; 2024-03-17)
PROC: 009U3ZX Drainage of Spinal Canal, Percutaneous Approach, Diagnostic (ICD-10-PCS; principal; 2024-03-27)
PROC: 009U3ZX Drainage of Spinal Canal, Percutaneous Approach, Diagnostic (ICD-10-PCS; 2024-03-27)
DX: A41.81 Sepsis due to Enterococcus (principal); J96.01 Acute respiratory failure with hypoxia; R65.21 Severe sepsis with septic shock; G93.41 Metabolic encephalopathy; Z20.822 Contact with and (suspected) exposure to COVID-19; F03.90 Unspecified dementia, unspecified severity, without behavioral disturbance, psychotic disturbance, mood disturbance, and anxiety; J18.9 Pneumonia, unspecified organism; D64.9 Anemia, unspecified; E87.6 Hypokalemia; N39.0 Urinary tract infection, site not specified; L21.9 Seborrheic dermatitis, unspecified; B95.2 Enterococcus as the cause of diseases classified elsewhere; Z78.1 Physical restraint status
CPT/HCPCS: 36415; 36600; 70450; 70553; 71045; 80048; 80053; 80177; 80202; 81001; 81003; 82550; 82803; 82945; 82948; 83605; 83735; 84100; 84132; 84134; 84145; 84157; 84443; 85007; 85018; 85025; 85610; 85730; 86255; 86592; 86617; 86788; 86789; 87015; 87040; 87070; 87077; 87081; 87088; 87186; 87210; 87502; 87503; 87529; 87811; 87899; 89051; 90686; 92508; 92616; 93005; 93306; 94002; 94003; 94640; 94760; 94799; 95720; 95816; 96374; 96375; 97110; 97161; 97530; 99285; A4314; A4333; A4338; A4346; A4615; A4624; A5200; A6209; A6212; A6213; A6234; A6250; A6253; A6258; A6402; A6449; A9575; C1758; G0378; J0131; J0696; J0744; J1650; J1953; J2060; J2543; J3010; J3370; J3480; J3490; J7030; J7040; J7060; J7120